=== PATIENT | female | born 2000 | race Caucasian/White ===

== ENCOUNTER 2020-03-21 21:20 | Emergency (ER) | payer OTHER ==
[~2020-03-21] VITALS: Ht 165.1 cm; Wt 89.1 kg
[2020-03-21] MEDS ORDERED: MIRA3350 PO (21:43)
[2020-03-21] MEDS ORDERED: DICYCLOMINE 10 MG CAP PO ONE (22:30)
[2020-03-21 22:54] LABS: BASO # 0.1 10^3/uL (0.0-0.2); BASO % 0.7 % (0.0-1.0); EOS # 0.2 10^3/uL (0.0-0.5); EOS % 1.4 % (0.0-3.0); HEMATOCRIT 44.6 % (36.0-47.0); HEMOGLOBIN 14.9 g/dl (12.0-15.5); LYMPH % 18.6 % (24.0-44.0); MEAN CORPUSCULAR HEMOGLOBIN 27.8 pg (27.0-33.0); MEAN CORPUSCULAR HGB CONC 33.4 g/dl (32.0-36.5); MEAN CORPUSCULAR VOLUME 83.2 fl (80.0-96.0); MONO # 0.9 10^3/uL (0.0-0.8); MONO % 8.2 % (0.0-5.0); NEUTROPHILS # 7.5 10^3/uL (1.5-8.5); NEUTROPHILS % 70.7 % (36.0-66.0); PLATELET COUNT, AUTOMATED 360 10^3/uL (150-450); RED BLOOD COUNT 5.36 10^6/uL (4.00-5.40); WHITE BLOOD COUNT 10.6 10^3/uL (4.0-10.0)
[2020-03-21 23:15] LABS: ALBUMIN 4.1 GM/DL (3.2-5.2); ALT/SGPT 26 U/L (12-78); BILIRUBIN,DIRECT 0.1 MG/DL (0.0-0.2); BILIRUBIN,TOTAL 0.3 MG/DL (0.2-1.0); BLOOD UREA NITROGEN 11 MG/DL (7-18); CALCIUM LEVEL 9.5 MG/DL (8.5-10.1); CARBON DIOXIDE LEVEL 23 MEQ/L (21-32); CHLORIDE LEVEL 111 MEQ/L (98-107); CREATININE FOR GFR 0.74 MG/DL (0.55-1.30); GLUCOSE, FASTING 105 MG/DL (70-100); LIPASE 82 U/L (73-393); POTASSIUM SERUM 3.9 MEQ/L (3.5-5.1); SODIUM LEVEL 140 MEQ/L (136-145); TOTAL PROTEIN 8.2 GM/DL (6.4-8.2)
[2020-03-21 23:34] VITALS: BP 129/67
--- NOTE | 2020-03-21 23:47 | REPVR ---
PROCEDURE INFORMATION: Exam: CT Abdomen And Pelvis Without Contrast Exam date and time: 03/21/2020 10:19 PM Age: 19 years old Clinical indication: Abdominal pain; Generalized; Additional info: Rectal bleeding with bm, diffuse abd and back pain TECHNIQUE: Imaging protocol: Computed tomography of the abdomen and pelvis without contrast. Radiation optimization: All CT scans at this facility use at least one of these dose optimization techniques: automated exposure control; mA and/or kV adjustment per patient size (includes targeted exams where dose is matched to clinical indication); or iterative reconstruction. COMPARISON: No relevant prior studies available. FINDINGS: Limitations: Evaluation is somewhat limited by lack of IV contrast. Lungs: There is a 3 mm pleural based nodule in the left lower lobe (image 201:[id number]). Liver: Grossly unremarkable. Gallbladder and bile ducts: No gallstones are evident, but ultrasound would be more sensitive. No gross biliary ductal dilatation. Pancreas: Grossly unremarkable. Spleen: Grossly unremarkable. Adrenals: Grossly unremarkable. Kidneys and ureters: Grossly unremarkable. No hydronephrosis or renal or ureteral calculus. Stomach and bowel: The unopacified small bowel is not significantly distended to suggest obstruction. Question mild wall thickening of the rectosigmoid. The large bowel is otherwise grossly unremarkable in appearance. Appendix: The appendix appears normal. Intraperitoneal space: No free air or significant free fluid. Vasculature: Unremarkable. No abdominal aortic aneurysm. Lymph nodes: No gross pathologic lymphadenopathy. Bladder: Grossly unremarkable. Reproductive: No gross adnexal abnormality is apparent, but ultrasound would be more appropriate in this regard. Bones/joints: Unremarkable. No acute fracture. Soft tissues: A small fat containing umbilical hernia is present. IMPRESSION: 1. Question mild wall thickening of the rectosigmoid. Correlate as to any possible nonspecific proctocolitis. 2. No hydronephrosis or renal or ureteral calculus. 3. Small fat containing umbilical hernia. 4. 3 mm left lower lobe nodule. If patient does not have known cancer, follow up should be based on clinical information because of the low risk of cancer in this age group. ([place] et al., Fleischner Society, 2017) COMMENTS: Depending on suspected etiology of symptoms, consider a targeted ultrasound or contrast enhanced exam. Electronically signed by: Bonilla Corea On 03/21/2020 23:47:17 PM
[2020-03-22] MEDS ORDERED: ANUSOL HC 25MG SUPP PR STA (01:24)
[2020-03-22] MEDS ORDERED: AUGMENTIN 875 MG TAB PO ONE (01:30)
[2020-03-22] MEDS ORDERED: AUGM875T28 PO ×2 (01:44→02:11)
[2020-03-22] MEDS ORDERED: ANUS2.5C2 TOP ×2 (01:44→02:11)
[2020-03-22] MEDS ORDERED: DICY10CA13 PO ×2 (01:44→02:11)
--- NOTE | 2020-03-24 08:57 | ED PDOC ---
Post-Departure Follow-Up radiology report faxed to Maria E Morales MD Mar 24, 2020 08:57
== END 2020-03-22 02:12 | disposition home or self-care (01) ==
LOC: M ED 21:20
DX: R91.1 Solitary pulmonary nodule (principal); K42.9 Umbilical hernia without obstruction or gangrene; F17.200 Nicotine dependence, unspecified, uncomplicated; Z79.899 Other long term (current) drug therapy

== ENCOUNTER 2020-04-26 20:55 | Emergency (ER) | payer OTHER ==
[~2020-04-26] VITALS: Ht 165.1 cm; Wt 93.9 kg
[~2020-04-26 20:55] MED LIST: ANUS2.5C2 TOP; AUGM875T28 PO; DICY10CA13 PO; MIRA3350 PO
[2020-04-26 20:56] VITALS: BP 141/82
[2020-04-26] MEDS ORDERED: PROC1AER16 PR (22:55)
== END 2020-04-26 23:06 | disposition home or self-care (01) ==
LOC: M ED 20:55
DX: K64.8 Other hemorrhoids (principal); F17.210 Nicotine dependence, cigarettes, uncomplicated

== ENCOUNTER → 2020-05-19 | Outpatient (REF) | payer OTHER ==
[~2020-05-19] MED LIST changes: +PROC1AER16 PR
[2020-05-19 16:32] LABS: BASO # 0.1 10^3/uL (0.0-0.2); BASO % 0.7 % (0.0-1.0); EOS # 0.2 10^3/uL (0.0-0.5); EOS % 1.7 % (0.0-3.0); HEMOGLOBIN 14.2 g/dl (12.0-15.5); LYMPH # 2.7 10^3/uL (1.5-5.0); LYMPH % 30.7 % (24.0-44.0); MEAN CORPUSCULAR HEMOGLOBIN 27.8 pg (27.0-33.0); MEAN CORPUSCULAR VOLUME 84.3 fl (80.0-96.0); MONO # 0.6 10^3/uL (0.0-0.8); MONO % 6.7 % (0.0-5.0); NEUTROPHILS # 5.2 10^3/uL (1.5-8.5); NEUTROPHILS % 59.7 % (36.0-66.0); PLATELET COUNT, AUTOMATED 342 10^3/uL (150-450); WHITE BLOOD COUNT 8.7 10^3/uL (4.0-10.0)
[2020-05-19 17:24] LABS: ALBUMIN 4.3 GM/DL (3.2-5.2); ALT/SGPT 24 U/L (12-78); BILIRUBIN,TOTAL 0.6 MG/DL (0.2-1.0); BLOOD UREA NITROGEN 8 MG/DL (7-18); CALCIUM LEVEL 9.9 MG/DL (8.5-10.1); CARBON DIOXIDE LEVEL 25 MEQ/L (21-32); CHLORIDE LEVEL 108 MEQ/L (98-107); CREATININE FOR GFR 0.67 MG/DL (0.55-1.30); GLUCOSE, FASTING 85 MG/DL (70-100); POTASSIUM SERUM 4.3 MEQ/L (3.5-5.1); SODIUM LEVEL 139 MEQ/L (136-145); THYROID STIMULATING HORMONE 0.931 uIU/ML (0.463-3.98); TOTAL 25(OH) VITAMIN D 16.6 NG/ML (30.0-100.0); TOTAL PROTEIN 7.9 GM/DL (6.4-8.2)
== END ==
LOC: M LAB REF 16:09
PROVIDERS: ATTEND Physician Assistant
DX: Z65.9 Problem related to unspecified psychosocial circumstances (principal)

== ENCOUNTER 2020-05-20 17:54 | Emergency (ER) | payer OTHER ==
[~2020-05-20] VITALS: Ht 165.1 cm; Wt 95.0 kg
[2020-05-20] MEDS ORDERED: ACETAMINOPHEN 500 MG TAB PO ONE (19:00)
--- NOTE | 2020-05-20 19:22 | REPVR ---
PROCEDURE INFORMATION: Exam: XR Right Knee Exam date and time: 05/20/2020 6:36 PM Age: 19 years old Clinical indication: Other: Fall; Additional info: Fall stairs TECHNIQUE: Imaging protocol: XR Right knee. Views: 4 or more views. COMPARISON: No relevant prior studies available. FINDINGS: Bones/joints: No radiographic evidence of acute fracture or dislocation. Alignment anatomic. Joint spaces preserved. No significant effusion. Soft tissues: Grossly unremarkable. IMPRESSION: No acute radiographic findings. Electronically signed by: Bonilla Lopez On 05/20/2020 19:21:37 PM
--- NOTE | 2020-05-20 19:27 | REPVR ---
PROCEDURE INFORMATION: Exam: XR Right Ankle Exam date and time: 05/20/2020 6:36 PM Age: 19 years old Clinical indication: Other: Fall; Additional info: Fall stairs TECHNIQUE: Imaging protocol: XR Right ankle. Views: 3 or more views. COMPARISON: No relevant prior studies available. FINDINGS: Bones/joints: No radiographic evidence of acute fracture or dislocation. Alignment anatomic. Joint spaces preserved. No definite effusion. Soft tissues: Grossly unremarkable. IMPRESSION: No acute radiographic findings. Electronically signed by: Bonilla Lopez On 05/20/2020 19:27:48 PM
[2020-05-20 19:59] VITALS: BP 125/64
== END 2020-05-20 20:02 | disposition home or self-care (01) ==
LOC: EDBD 17:54 → M ED 17:54
DX: M25.561 Pain in right knee (principal); W10.9XXA Fall (on) (from) unspecified stairs and steps, initial encounter; Y92.009 Unspecified place in unspecified non-institutional (private) residence as the place of occurrence of the external cause; Y99.9 Unspecified external cause status; K59.00 Constipation, unspecified; F17.200 Nicotine dependence, unspecified, uncomplicated

== ENCOUNTER 2020-07-23 22:54 | Emergency (ER) | payer OTHER ==
[~2020-07-23] VITALS: Ht 165.1 cm; Wt 95.0 kg
--- OUTSIDE RECORDS SUMMARY | 2020-07-23 22:59 | CCD ---
Author Organization Unknown Address [address] [place] [address] Phone [phone] Care Team Providers Care Security Alarm Technician Name Role Phone Ana Iqbal Unavailable Unavailable Allergies Code Code System Name Reaction Severity Status Onset NKDA Medications Name Status Start Date Stop Date lithium carbonate Active Not available Nexplanon 68 mg subdermal implant Inject by subcutaneous route. Active Not avail able Problems Name Status Onset Date Source Anxiety Active 05/01/2020 Depressive Disorder Active 05/01/2020 Seizure Active 05/01/2020 Posttraumatic Stress Disorder Active 05/02/2020 Attention Deficit Hyperactivity Disorder Active 020 Migraine Active 05/02/2020 Painless Rectal Bleeding Active 05/02/2020 History of Eating Disorder Active 05/02/2020 History of Traumatic Brain Injury Active 05/02/2020 Procedures None recorded. Results Lab Results None recorded. Past Encounters 05/01/2020 Migraine; Seizure; Posttraumatic Stress Disorder; Generalized Anxiety Disorder; History of Eating Disorder; Attention Deficit Hyperactivity Disorder; Depressive Disorder; Painless Rectal Bleeding; History of Traumatic Brain Injury; Atrial Septal Defect Lisbeth Rees PA-C: [address] [place] [address], Ph. Social History Tobacco Smoking Status Light Tobacco Smoker (1 PPW) Vaccine List None recorded. Plan of Care Reminders Provider Appointments None recorded. Lab None recorded. Referral None recorded. Procedures None recorded. Surgeries None recorded. Imaging None recorded. Vitals Height Weight BMI Blood Pressure 65 in 207 lbs 2 oz 34.5 kg/m2 124/81 mm[Hg]
--- OUTSIDE RECORDS SUMMARY | 2020-07-23 22:59 | CCD | Continuity of Care Document ---
Author Author Sofi MUNSON PA Organization Unknown Address [address] [place] [address], [facility] [address] [place] [address] Phone [phone] Care Team Providers Care Technical Service Representative Name Role Phone Maria E Carvalho MD AUTM [phone] Problems Description No Information Available Social History Type Date Description Comments Sex Unknown Allergies, Adverse Reactions, Alerts Description No Information Available Medications Active Medications SIG Qnty Indications Ordering Provide r Date Tramadol HCL 50mg Tablets 1 every 4-6 hours as needed pain 15tabs S80.01xA David Billy MD 05/24/20 20 Immunizations Description No Information Available Vital Signs Date Vital Result Comment 05/24/2020 1:32pm Body Temperature 97.8 F Height 65 inches 5'5" Weight 209.00 lb BMI (Body Mass Index) 34.8 kg/m2 Results Description No Information Available Procedures Description No Information Available Medical Devices Description No Information Available Encounters Type Date Location Provider Dx Diagnosis Office Visit 05/24/2020 1:30p [place] [facility] Morales S80.01xA Contusion of right knee, initial encounter Assessments Date Code Description Provider 05/24/2020 S80.01xA Contusion of right knee, initial encounter [facility] Morales Plan of Treatment 05/24/2020 - [facility] Morales* S80.01xA Contusion of right knee, initial encounter* New Medication:* Tramadol HCL 50 mg - 1 every 4-6 hours as needed pain * Follow up:* 7-10 days rt knee sy with IID Functional Status Description No Information Available Mental Status Description No Information Available Referrals Description No Information Available
--- OUTSIDE RECORDS SUMMARY | 2020-07-23 22:59 | CCD ---
Author Author [facility] Organization [facility] Address Unknown Phone Unavailable Care Team Providers Care Content Manager Name Role Phone Rasheed, A Ana MANAGER MEMBERSHIP Unavailable Unavailable Rasheed, A Ana MANAGER MEMBERSHIP Unavailable Unavailable Rasheed, A Ana MANAGER MEMBERSHIP Unavailable Unavailable Rasheed, A Ana MANAGER MEMBERSHIP Unavailable Unavailable Rasheed, A Ana MANAGER MEMBERSHIP Unavailable Unavailable Rasheed, A Ana MANAGER MEMBERSHIP Unavailable Unavailable Rasheed, A Ana MANAGER MEMBERSHIP Unavailable Unavailable Rasheed, A Ana MANAGER MEMBERSHIP Unavailable Unavailable Rasheed, A Ana MANAGER MEMBERSHIP Unavailable Unavailable Wayne, A Ana MANAGER MEMBERSHIP Unavailable Unavailable Wayne, A Ana MANAGER MEMBERSHIP Unavailable Unavailable Wayne, A Ana MANAGER MEMBERSHIP Unavailable Unavailable Wayne, A Ana MANAGER MEMBERSHIP Unavailable Unavailable Rasheed, A Ana MANAGER MEMBERSHIP Unavailable Unavailable Rasheed, A Ana MANAGER MEMBERSHIP Unavailable Unavailable Rasheed, A Ana MANAGER MEMBERSHIP Unavailable Unavailable Rasheed, A Ana MANAGER MEMBERSHIP Unavailable Unavailable Rasheed, A Ana MANAGER MEMBERSHIP Unavailable Unavailable Rasheed, A Ana MANAGER MEMBERSHIP Unavailable Unavailable Wayne, A Ana MANAGER MEMBERSHIP Unavailable Unavailable Wayne, A Ana MANAGER MEMBERSHIP Unavailable Unavailable Rasheed, A Ana MANAGER MEMBERSHIP Unavailable Unavailable Rasheed, A Ana MANAGER MEMBERSHIP Unavailable Unavailable Rasheed, A Ana MANAGER MEMBERSHIP Unavailable Unavailable Rasheed, A Ana MANAGER MEMBERSHIP Unavailable Unavailable Rasheed, A Ana MANAGER MEMBERSHIP Unavailable Unavailable Rasheed, A Ana MANAGER MEMBERSHIP Unavailable Unavailable Chidi Montaño MD Unavailable Unavailable Chidi Montaño MD Unavailable Unavailable Chidi Montaño MD Unavailable Unavailable Chidi Montaño MD Unavailable Unavailable Chidi Montaño MD Unavailable Unavailable Chidi Montaño MD Unavailable Unavailable Chidi Montaño MD Unavailable Unavailable Chidi Montaño MD Unavailable Unavailable Chidi Montaño MD Unavailable Unavailable Chidi Montaño MD Unavailable Unavailable Chidi Montaño MD Unavailable Unavailable Chidi Montaño MD Unavailable Unavailable Chidi Montaño MD Unavailable Unavailable Chidi Montaño MD Unavailable Unavailable Chidi Montaño MD Unavailable Unavailable Chidi Montaño MD Unavailable Unavailable Chidi Montñao MD Unavailable Unavailable Chidi Montaño MD Unavailable Unavailable Chidi oMntaño MD Unavailable Unavailable Chidi Montaño MD Unavailable Unavailable Chidi Montaño MD Unavailable Unavailable Chidi Montaño MD Unavailable Unavailable Chidi Montaño MD Unavailable Unavailable Chidi Montaño MD Unavailable Unavailable Chidi Montaño MD Unavailable Unavailable Chidi Montaño MD Unavailable Unavailable Chidi Montaño MD Unavailable Unavailable Chidi Montaño MD Unavailable Unavailable Chidi Montaño MD Unavailable Unavailable Chidi Montaño MD Unavailable Unavailable Chidi Montaño MD Unavailable Unavailable Chidi Montaño MD Unavailable Unavailable Chidi Montaño MD Unavailable Unavailable Cihdi Montaño MD Unavailable Unavailable Chidi Montaño MD Unavailable Unavailable Chidi Montaño MD Unavailable Unavailable Chidi Montaño MD Unavailable Unavailable Chidi Montaño MD Unavailable Unavailable Chidi Montaño MD Unavailable Unavailable Chidi Montaño MD Unavailable Unavailable Chidi Montaño MD Unavailable Unavailable Chidi Montaño MD Unavailable Unavailable Chidi Montaño MD Unavailable Unavailable Chidi Montaño MD Unavailable Unavailable Chidi Montaño MD Unavailable Unavailable Chidi Montaño MD Unavailable Unavailable Chidi Montaño MD Unavailable Unavailable Chidi Montaño MD Unavailable Unavailable Chidi Montaño MD Unavailable Unavailable Chidi Montaño MD Unavailable Unavailable Chidi Montaño MD Unavailable Unavailable Chidi Montaño MD Unavailable Unavailable Chidi Montaño MD Unavailable Unavailable Chidi Montaño MD Unavailable Unavailable Chidi Montaño MD Unavailable Unavailable Chidi Montaño MD Unavailable Unavailable Chidi Montaño MD Unavailable Unavailable Chidi Montaño MD Unavailable Unavailable Chidi Montaño MD Unavailable Unavailable Chidi Montaño MD Unavailable Unavailable Chidi Montaño MD Unavailable Unavailable Chidi Montaño MD Unavailable Unavailable Chidi Montaño MD Unavailable Unavailable Chidi Montaño MD Unavailable Unavailable Chidi Montaño MD Unavailable Unavailable Chidi Montaño MD Unavailable Unavailable Chidi Montaño MD Unavailable Unavailable Chidi Montaño MD Unavailable Unavailable Chidi Montaño MD Unavailable Unavailable Chidi Montaño MD Unavailable Unavailable Chidi Montaño MD Unavailable Unavailable Chidi Montaño MD Unavailable Unavailable Chidi Montaño MD Unavailable Unavailable Chidi Montaño MD Unavailable Unavailable Chidi Montaño MD Unavailable Unavailable Chidi Montaño MD Unavailable Unavailable Chidi Montaño MD Unavailable Unavailable Chidi Montaño MD Unavailable Unavailable Chidi Montaño MD Unavailable Unavailable Chidi Montaño MD Unavailable Unavailable Chidi Montaño MD Unavailable Unavailable Chidi Montaño MD Unavailable Unavailable Chidi Montaño MD Unavailable Unavailable Chidi Montaño MD Unavailable Unavailable Chidi Montaño MD Unavailable Unavailable Chidi Montaño MD Unavailable Unavailable Chidi Montaño MD Unavailable Unavailable Chidi Montaño MD Unavailable Unavailable Chidi Montaño MD Unavailable Unavailable Scordo, M Lisbeth PA Unavailable Unavailable Scordo, M Lisbeth PA Unavailable Unavailable Scordo, M Lisbeth PA Unavailable Unavailable Scordo, M Lisbeth PA Unavailable Unavailable Scordo, M Lisbeth PA Unavailable Unavailable Scordo, M Lisbeth PA Unavailable Unavailable Scordo, M Lisbeth PA Unavailable Unavailable Scordo, M Lisbeth PA Unavailable Unavailable Scordo, M Lisbeth PA Unavailable Unavailable Scordo, M Lisbeth PA Unavailable Unavailable Scordo, M Lisbeth PA Unavailable Unavailable Scordo, M Lisbeth PA Unavailable Unavailable Scordo, M Lisbeth PA Unavailable Unavailable Scordo, M Lisbeth PA Unavailable Unavailable Scordo, M Lisbeth PA Unavailable Unavailable Scordo, M Lisbeth PA Unavailable Unavailable Scordo, M Lisbeth PA Unavailable Unavailable Scordo, M Lisbeth PA Unavailable Unavailable Scordo, M Lisbeth PA Unavailable Unavailable Scordo, M Lisbeth PA Unavailable Unavailable Scordo, M Lisbeth PA Unavailable Unavailable Scordo, M Lisbeth PA Unavailable Unavailable Scordo, M Lisbeth PA Unavailable Unavailable Scordo, M Lisbeth PA Unavailable Unavailable Scordo, M Lisbeth PA Unavailable Unavailable Scordo, M Lisbeth PA Unavailable Unavailable Scordo, M Lisbeth PA Unavailable Unavailable Scordo, M Lisbeth PA Unavailable Unavailable Scordo, M Lisbeth PA Unavailable Unavailable Scordo, M Lisbeth PA Unavailable Unavailable Scordo, M Lisbeth PA Unavailable Unavailable Scordo, M Lisbeth PA Unavailable Unavailable Scordo, M Lisbeth PA Unavailable Unavailable Scordo, M Lisbeth PA Unavailable Unavailable Scordo, M Lisbeth PA Unavailable Unavailable Scordo, M Lisbeth PA Unavailable Unavailable Scordo, M Lisbeth PA Unavailable Unavailable Scordo, M Lisbeth PA Unavailable Unavailable Scordo, M Lisbeth PA Unavailable Unavailable Scordo, M Lisbeth PA Unavailable Unavailable DRAZEK, I CARYN PA Unavailable Unavailable DRAZEK, I CARYN PA Unavailable Unavailable DRAZEK, I CARYN PA Unavailable Unavailable DRAZEK, I CARYN PA Unavailable Unavailable DRAZEK, I CARYN PA Unavailable Unavailable DRAZEK, I CARYN PA Unavailable Unavailable DRAZEK, I CARYN PA Unavailable Unavailable DRAZEK, I CARYN PA Unavailable Unavailable DRAZEK, I CARYN PA Unavailable Unavailable DRAZEK, I CARYN PA Unavailable Unavailable DRAZEK, I CARYN PA Unavailable Unavailable DRAZEK, I CARYN PA Unavailable Unavailable DRAZEK, I CARYN PA Unavailable Unavailable DRAZEK, I CARYN PA Unavailable Unavailable DRAZEK, I CARYN PA Unavailable Unavailable DRAZEK, I CARYN PA Unavailable Unavailable DRAZEK, I CARYN PA Unavailable Unavailable DRAZEK, I CARYN PA Unavailable Unavailable DRAZEK, I CARYN PA Unavailable Unavailable DRAZEK, I CARYN PA Unavailable Unavailable DRAZEK, I CARYN PA Unavailable Unavailable DRAZEK, I CARYN PA Unavailable Unavailable DRAZEK, I CARYN PA Unavailable Unavailable DRAZEK, I CARYN PA Unavailable Unavailable DRAZEK, I CARYN PA Unavailable Unavailable DRAZEK, I CARYN PA Unavailable Unavailable DRAZEK, I CARYN PA Unavailable Unavailable DRAZEK, I CARYN PA Unavailable Unavailable DRAZEK, I CARYN PA Unavailable Unavailable DRAZEK, I CARYN PA Unavailable Unavailable Ana Iqbal MANAGER MEMBERSHIP MANAGER MEMBERSHIP Unavailable Unavailable Re-disclosure Warning The records that you are about to access may contain information from federally-assisted alcohol or drug abuse programs. If such information is present, then the following federally mandated warning applies: This information has been disclosed to you from records protected by federal confidentiality rules (42 CFR part 2). The federal rules prohibit you from making any further disclosure of this information unless further disclosure is expressly permitted by the written consent of the person to whom it pertains or as otherwise permitted by 42 CFR part 2. A general authorization for the release of medical or other information is NOT sufficient for this purpose. The Federal rules restrict any use of the information to criminally investigate or prosecute any alcohol or drug abuse patient.The records that you are about to access may contain highly sensitive health information, the redisclosure of which is protected by Article 27-F of the [facility] Public Health law. If you continue you may have access to information: Regarding HIV / AIDS; Provided by facilities licensed or operated by the [facility] Office of Mental Health; or Provided by the [facility] Office for People With Developmental Disabilities. If such information is present, then the following [facility] mandated warning applies: This information has been disclosed to you from confidential records which are protected by state law. State law prohibits you from making any further disclosure of this information without the specific written consent of the person to whom it pertains, or as otherwise permitted by law. Any unauthorized further disclosure in violation of state law may result in a fine or intermediate sentence or both. A general authorization for the release of medical or other information is NOT sufficient authorization for further disc losure. Encounters Encounter Providers Location Date Indications Data Source(s ) OFFICE OUTPATIENT NEW 30 MINUTES Attender: CARYN VALENTINE [facility] 05/24/2020 12:30:00 PM EST [facility] ([facility]) Ramy Montaño MD: [address] [place] [address], Ph. Attender: Ramy Montaño MD [facility] 05/19/2020 12:00:00 AM EST [facility] ([facility]) Lisbeth Rees PA-C: [address] [place] [address], Ph. Attender: Lisbeth VALENTINE [facility] 05/01/2020 12:00:00 AM EDT [facility] ([facility]) Lisbeth Rees PA-C: [address] [place] [address], Ph. Attender: Lisbeth VALENTINE [facility] 05/01/2020 12:00:00 AM EDT [facility]) Outpatient Attender: MARILEE HUNT ALL 04/08/2020 07:07:04 P M EDT [facility] Outpatient Attender: Ana HUNT ALL 04/08/2020 07:0 7:03 PM EDT [facility] Medications Medication Brand Name Start Date Product Form Dose Route Admi nistrative Instructions Pharmacy Instructions Status Indications Reaction Description Data Source(s) 28 mg iron- 800 mcg 06/15/2020 12:00:00 AM EST tablet 30 TAKE ONE TABLET BY MOUTH ONCE DAILY TAKE ONE TABLET BY MOUTH ONCE DAILY SOLD: 07/13/2020 [facility] 28 mg iron- 800 mcg 06/15/2020 12:00:00 AM EST tablet 30 TAKE ONE TABLET BY MOUTH ONCE DAILY TAKE ONE TABLET BY MOUTH ONCE DAILY SOLD: 06/15/2020 [facility] 50 mg 06/15/2020 12:00:00 AM EST tablet 15 TAKE ONE TABLET BY MOUTH EVERY 4- 6 HOURS NEEDED FOR PAIN MAXIMUM DAILY DOSE = 4 TABLETS TAKE ONE TABLET BY MOUTH EVERY 4-6 HOURS NEEDED FOR PAIN MAXIMUM DAILY DOSE = 4 TABLETS SOLD: 06/21/2020 [facility] tramadol hydrochloride 50 MG Oral Tablet Tramadol HCL 05/24/2020 12:00:00 AM EST active [facility]) 2.5 % 03/22/2020 12:00:00 AM EDT cream with perineal janet licator 30 APPLY 1 APPLICATION THREE TIMES A DAY APPLY 1 APPLICATION THREE TIMES A DAY SOLD: 03/22/2020 [facility] 10 mg 03/22/2020 12:00:00 AM EDT capsule 28 TAKE ONE CAPSULE BY MOUTH EVERY 6 HOURS NEEDED FOR IRRITABLE BOWEL SYMPTOMS TAKE ONE CAPSULE BY MOUTH EVERY 6 HOURS NEEDED FOR IRRITABLE BOWEL SYMPTOMS SOLD: 03/22/2020 [facility] 875-125 mg 03/22/2020 12:00:00 AM EDT tablet 14 TAKE ONE TABLET BY MOUTH TWICE A DAY FOR 7 DAYS TAKE ONE TABLET BY MOUTH TWICE A DAY FOR 7 DAYS SOLD: 03/22/2020 [facility] 17 gram/dose 10/26/2019 12:00:00 AM EDT powder 510 TAKE 1 TO 2 CAPS BY MOUTH DAILY WITH LIQUID NEEDED TAKE 1 TO 2 CAPS BY MOUTH DAILY WITH LIQ UID NEEDED SOLD: 10/31/2019 [facility] Insurance Providers Payer name Policy type / Coverage type Policy ID Covered constitution party ID Covered constitution party's relationship to ramires Policy Ramires Plan Information [facility] [id number] SP [id number] [facility] [id number] Problems, Conditions, and Diagnoses Code Display Name Description Problem Type Effective Dates Data Source(s) [id number] History of traumatic brain injury Histor y of Traumatic Brain Injury Problem 05/02/2020 12:00:00 AM EDT [facility] ([facility]) [id number] History of eating disorder History of Eating Disord er Problem 05/02/2020 12:00:00 AM EDT [facility] ([facility]) [id number] Painless rectal bleeding Painless Rectal Bleeding Prob gaby 05/02/2020 12:00:00 AM EDT [facility] ([facility]) [id number] Migraine Migraine Problem 05/02/2020 12:00:00 AM ED T [facility] ([facility]) [id number] Attention deficit hyperactivity disorder Attention Deficit Hyperactivity Disorder Problem 05/02/2020 12:00:00 AM EDT [facility] [id number] Posttraumatic stress disorder Posttraumatic Stress Dis order Problem 05/02/2020 12:00:00 AM EDT [facility] ([facility]) [id number] History of traumatic brain injury Histor y of Traumatic Brain Injury Problem 05/02/2020 12:00:00 AM EDT [facility] ([facility]) [id number] History of eating disorder History of Eating Disord er Problem 05/02/2020 12:00:00 AM EDT [facility] ([facility]) [id number] Painless rectal bleeding Painless Rectal Bleeding Prob gaby 05/02/2020 12:00:00 AM EDT [facility] ([facility]) 11428207 Migraine Migraine Problem 05/02/2020 12:00:00 AM ED T [facility] ([facility]) [id number] Attention deficit hyperactivity disorder Attention Deficit Hyperactivity Disorder Problem 05/02/2020 12:00:00 AM EDT [facility] 65532744 Posttraumatic stress disorder Posttraumatic Stress Dis order Problem 05/02/2020 12:00:00 AM EDT [facility] ([facility]) 56292191 Seizure Seizure Problem 05/01/2020 12:00:00 AM ED T [facility] ([facility]) 17056849 Depressive disorder Depressive Disorder Problem 1 12:00:00 AM EDT [facility] ([facility]) 65277046 Anxiety Anxiety Problem 05/01/2020 12:00:00 AM ED T [facility] ([facility]) 71695162 Seizure Seizure Problem 05/01/2020 12:00:00 AM ED T [facility] ([facility]) 08949325 Depressive disorder Depressive Disorder Problem 1 12:00:00 AM EDT [facility] ([facility]) 67482268 Anxiety Anxiety Problem 05/01/2020 12:00:00 AM ED T [facility] ([facility]) Results ID Date Data Source [id number] 03/21/2020 10:40:00 PM EDT [facility] Name Value Range Interpretation Code Description Data Noemi rce(s) Supporting Document(s) HCT 44.6 % 36.0-47.0 N [facility] HGB 14.9 g/dL 12.0-15.5 N [facility] MCH 33.4 G/DL pg 32.0-36.5 N [facility] MCHC 27.8 PG % 27.0-33.0 N [facility] PLATELETS 360 10 10*3/mm3 150-450 N [facility] RBC 5.36 10 10*6/mm3 4.00-5.40 N [facility] RDW 12.5 % 11.5-14.5 N [facility] WBC TOTAL 10.6 4.0-10.0 H [facility] ID Date Data Source [id number] 03/21/2020 10:40:00 PM EDT [facility] Name Value Range Interpretation Code Description Data Noemi rce(s) Supporting Document(s) BG FASTING 105 mg/dL 70-100 H [facility] Procedure Vital Signs ID Date Data Source UNK Name Value Range Interpretation Code Description Data Source(s) Body mass index (BMI) [Ratio] 34.8 kg/m2 34.8 k g/m2 [facility] ([facility]) Body weight 209.00 [lb_av] 209.00 [lb_av] MED[facility] T ([facility]) Body height 65 [in_i] 65 [in_i] [facility] ([facility]) 5'5" Body temperature 97.8 [degF] 97.8 [degF] [facility] ([facility]) Body weight 3314 [oz_av] 3314 [oz_av] [facility] ([facility]) Systolic blood pressure 124 mm[Hg] 124 mm[Hg] A LEONIDA ([facility]) Body mass index (BMI) [Ratio] 34.5 kg/m2 34.5 k g/m2 [facility] ([facility]) Body height 65 [in_i] 65 [in_i] [facility] ([facility]) Diastolic blood pressure 81 mm[Hg] 81 mm[Hg] [facility] ([facility]) Body weight 3314 [oz_av] 3314 [oz_av] [facility] ([facility]) Systolic blood pressure 124 mm[Hg] 124 mm[Hg] A LEONIDA ([facility]) Body mass index (BMI) [Ratio] 34.5 kg/m2 34.5 k g/m2 [facility] ([facility]) Body height 65 [in_i] 65 [in_i] [facility] ([facility]) Diastolic blood pressure 81 mm[Hg] 81 mm[Hg] [facility] ([facility])
--- OUTSIDE RECORDS SUMMARY | 2020-07-23 22:59 | CCD ---
Author Organization Unknown Address [address] [place] [address] Phone [phone] Care Team Providers Care Compacting Machine Operator/Tender Name Role Phone Ana Iqbal Unavailable Unavailable [...] Results Lab Results None recorded. Past Encounters 05/19/2020 Ramy Montaño MD: [address] [place] [address], Ph. 05/01/2020 Migraine; Seizure; Posttraumatic Stress Disorder; Generalized Anxiety Disorder; History of Eating Disorder; Attention Deficit Hyperactivity Disorder; Depressive Disorder; Painless Rectal Bleeding; History of Traumatic Brain Injury; Atrial Septal Defect Lisbeth Rees PA-C: [address] [place] [address], Ph. Social History Tobacco Smoking Status Light Tobacco Smoker (1 PPW) Vaccine List None recorded. Plan of Care Reminders Provider Appointments None recorded. Lab None recorded. Referral None recorded. Procedures None recorded. Surgeries None recorded. Imaging None recorded. Vitals Height Weight BMI Blood Pressure 65 in 207 lbs 2 oz 34.5 kg/m2 124/81 mm[Hg]
[2020-07-23] MEDS ORDERED: NS 1,000 ML IV ONE (23:15)
[2020-07-23] MEDS ORDERED: ONDANSETRON 4MG/2ML VIAL IV ONE (23:15)
[2020-07-23] MEDS ORDERED: diphenhydrAMINE 50MG/ML VIAL (J1200) IV STA (23:16)
[2020-07-23] MEDS ORDERED: METOCLOPRAMIDE INJ 10MG/2ML VIAL (J2765 PER 1) IV ONE (23:30)
[2020-07-24 00:20] LABS: BASO # 0.1 10^3/uL (0.0-0.2); BASO % 0.4 % (0.0-1.0); EOS # 0.1 10^3/uL (0.0-0.5); EOS % 0.7 % (0.0-3.0); HEMATOCRIT 41.4 % (36.0-47.0); HEMOGLOBIN 13.8 g/dl (12.0-15.5); LYMPH # 2.6 10^3/uL (1.5-5.0); LYMPH % 18.2 % (24.0-44.0); MEAN CORPUSCULAR HEMOGLOBIN 27.7 pg (27.0-33.0); MEAN CORPUSCULAR HGB CONC 33.3 g/dl (32.0-36.5); MEAN CORPUSCULAR VOLUME 83.1 fl (80.0-96.0); MONO # 0.8 10^3/uL (0.0-0.8); MONO % 5.6 % (0.0-5.0); NEUTROPHILS # 10.4 10^3/uL (1.5-8.5); NEUTROPHILS % 74.3 % (36.0-66.0); PLATELET COUNT, AUTOMATED 351 10^3/uL (150-450); RED BLOOD COUNT 4.98 10^6/uL (4.00-5.40)
[2020-07-24 00:35] LABS: ALBUMIN 4.3 GM/DL (3.2-5.2); ALT/SGPT 42 U/L (12-78); BILIRUBIN,DIRECT 0.1 MG/DL (0.0-0.2); BILIRUBIN,TOTAL 0.8 MG/DL (0.2-1.0); BLOOD UREA NITROGEN 12 MG/DL (7-18); CARBON DIOXIDE LEVEL 24 MEQ/L (21-32); CHLORIDE LEVEL 106 MEQ/L (98-107); GLUCOSE, FASTING 92 MG/DL (70-100); POTASSIUM SERUM 4.1 MEQ/L (3.5-5.1); SODIUM LEVEL 139 MEQ/L (136-145)
[2020-07-24 00:57] LABS: HCG, SERUM QUALITATIVE NEGATIVE (NEGATIVE)
--- OUTSIDE RECORDS SUMMARY | 2020-07-24 01:27 | CCD ---
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 Role Phone Rasheed, A Ana ENGLISH ADJUNCT FACULTY Unavailable Unavailable Rasheed, A Ana ENGLISH ADJUNCT FACULTY Unavailable Unavailable Rasheed, A Ana ENGLISH ADJUNCT FACULTY Unavailable Unavailable Rasheed, A Ana ENGLISH ADJUNCT FACULTY Unavailable Unavailable Rasheed, A Ana ENGLISH ADJUNCT FACULTY Unavailable Unavailable Rasheed, A Ana ENGLISH ADJUNCT FACULTY Unavailable Unavailable Rasheed, A Ana ENGLISH ADJUNCT FACULTY Unavailable Unavailable Rasheed, A Ana ENGLISH ADJUNCT FACULTY Unavailable Unavailable Rasheed, A Ana ENGLISH ADJUNCT FACULTY Unavailable Unavailable [place]st, A Ana ENGLISH ADJUNCT FACULTY Unavailable Unavailable [place], A Ana ENGLISH ADJUNCT FACULTY Unavailable Unavailable [place], A Ana ENGLISH ADJUNCT FACULTY Unavailable Unavailable [place], A Ana ENGLISH ADJUNCT FACULTY Unavailable Unavailable Rasheed, A Ana ENGLISH ADJUNCT FACULTY Unavailable Unavailable Rasheed, A Ana ENGLISH ADJUNCT FACULTY Unavailable Unavailable Rasheed, A Ana ENGLISH ADJUNCT FACULTY Unavailable Unavailable Rasheed, A Ana ENGLISH ADJUNCT FACULTY Unavailable Unavailable Rasheed, A Ana ENGLISH ADJUNCT FACULTY Unavailable Unavailable Rasheed, A Ana ENGLISH ADJUNCT FACULTY Unavailable Unavailable [place], A Ana ENGLISH ADJUNCT FACULTY Unavailable Unavailable [place], A Ana ENGLISH ADJUNCT FACULTY Unavailable Unavailable Rasheed, A Ana ENGLISH ADJUNCT FACULTY Unavailable Unavailable Rasheed, A Ana ENGLISH ADJUNCT FACULTY Unavailable Unavailable Rasheed, A Ana ENGLISH ADJUNCT FACULTY Unavailable Unavailable Rasheed, A Ana ENGLISH ADJUNCT FACULTY Unavailable Unavailable Rasheed, A Ana ENGLISH ADJUNCT FACULTY Unavailable Unavailable Rasheed, A Ana ENGLISH ADJUNCT FACULTY Unavailable Unavailable Chidi Montaño MD Unavailable Unavailable [...] Unavailable Unavailable Chidi Montaño MD Unavailable Unavailable Chiid Montaño MD Unavailable Unavailable Chidi Montaño MD [...] I CARYN PA Unavailable Unavailable Ana Iqbal ENGLISH ADJUNCT FACULTY ENGLISH ADJUNCT FACULTY Unavailable Unavailable Re-disclosure Warning The records that [...] is protected by Article 27-F of the [facility] Public Health law. If you continue you may have access to information: Regarding HIV / AIDS; Provided by facilities licensed or operated by the [facility] Office of Mental Health; or Provided by the [facility] Office for People With Developmental Disabilities. If such information is present, then the following [facility] mandated warning applies: This information has been [...] law may result in a fine or detention sentence or both. A general authorization for the release of medical or other information is NOT sufficient authorization for further disc losure. Encounters Encounter Providers Location Date Indications Data Source(s ) OFFICE OUTPATIENT NEW 30 MINUTES Attender: CARYN VALENTINE Physic al Therapy 05/24/2020 12:30:00 PM EST [facility] ([facility]) Ramy Montaño MD: [address] [place] [address], Ph. Attender: Ramy Montaño MD [facility] Medical 05/19/2020 12:00:00 AM EST CECILIA ([facility]) Lisbeth Rees PA-C: [address] [place] [address], Ph. Attender: Lisbeth VALENTINE [facility] Medical 05/01/2020 12:00:00 AM EDT CECILIA ([facility]) Lisbeth Rees PA-C: [address] [place] [address], Ph. Attender: Lisbeth VALENTINE [facility] Medical 05/01/2020 12:00:00 AM EDT [facility]) Outpatient Attender: MARILEE HUNT ALL 04/08/2020 07:07:04 P M EDT [facility] Outpatient Attender: Ana HUNT ALL 04/08/2020 07:0 7:03 PM EDT [facility] Medications Medication Brand Name Start Date [...] relationship to ramires Policy Ramires Plan Information [facility] [id number] SP [id number] [address] [facility] [id number] S [id number] Problems, Conditions, and Diagnoses Code Display Name Description Problem Type Effective Dates Data Source(s) 44530600612508 History of traumatic brain injury Histor y of Traumatic Brain Injury Problem 05/02/2020 12:00:00 AM EDT CECILIA ([facility]) [id number] History of eating disorder History of Eating Disord er Problem 05/02/2020 12:00:00 AM EDT CECILIA ([facility]) 614356769 Painless rectal bleeding Painless Rectal Bleeding Prob gaby 05/02/2020 12:00:00 AM EDT CECILIA ([facility]) 69693758 Migraine Migraine Problem 05/02/2020 12:00:00 AM ED T CECILIA ([facility]) [id number] Attention deficit hyperactivity disorder Attention Deficit Hyperactivity Disorder Problem 05/02/2020 12:00:00 AM EDT [facility] 38064043 Posttraumatic stress disorder Posttraumatic Stress Dis order Problem 05/02/2020 12:00:00 AM EDT CECILIA ([facility]) [id number] History of traumatic brain injury Histor y of Traumatic Brain Injury Problem 05/02/2020 12:00:00 AM EDT CECILIA ([facility]) [id number] History of eating disorder History of Eating Disord er Problem 05/02/2020 12:00:00 AM EDT CECILIA ([facility]) 698389814 Painless rectal bleeding Painless Rectal Bleeding Prob agby 05/02/2020 12:00:00 AM EDT CECILIA ([facility]) 28950402 Migraine Migraine Problem 05/02/2020 12:00:00 AM ED T CECILIA ([facility]) 308946338 Attention deficit hyperactivity disorder Attention Deficit Hyperactivity Disorder Problem 05/02/2020 12:00:00 AM EDT [facility]) 96200901 Posttraumatic stress disorder Posttraumatic Stress Dis order Problem 05/02/2020 12:00:00 AM EDT CECILIA ([facility]) 14486756 Seizure Seizure Problem 05/01/2020 12:00:00 AM ED T CECILIA ([facility]) 63029508 Depressive disorder Depressive Disorder Problem 1 12:00:00 AM EDT CECILIA ([facility]) 58596280 Anxiety Anxiety Problem 05/01/2020 12:00:00 AM ED T CECILIA ([facility]) 50964496 Seizure Seizure Problem 05/01/2020 12:00:00 AM ED T CECILIA ([facility]) 25123249 Depressive disorder Depressive Disorder Problem 1 12:00:00 AM EDT CECILIA ([facility]) 73676620 Anxiety Anxiety Problem 05/01/2020 12:00:00 AM ED T CECILIA ([facility]) Results ID Date Data Source [id number] 03/21/2020 10:40:00 PM EDT [facility] Name Value Range Interpretation Code Description Data Noemi rce(s) Supporting Document(s) HCT 44.6 % 36.0-47.0 N [facility] HGB 14.9 g/dL 12.0-15.5 N [facility] MCH 33.4 G/DL pg 32.0-36.5 N [facility] MCHC 27.8 PG % 27.0-33.0 N [facility] PLATELETS 360 10 10*3/mm3 150-450 N [facility] RBC 5.36 10 10*6/mm3 4.00-5.40 N [facility] RDW 12.5 % 11.5-14.5 N [facility] WBC TOTAL 10.6 4.0-10.0 H [facility] ID Date Data Source [id number] 03/21/2020 10:40:00 PM EDT [facility] Name Value Range Interpretation Code Description Data Noemi rce(s) Supporting Document(s) BG FASTING 105 mg/dL 70-100 H [facility] Procedure Vital Signs ID Date Data Source UNK Name Value Range Interpretation Code Description Data Source(s) Body mass index (BMI) [Ratio] 34.8 kg/m2 34.8 k g/m2 [facility] ([facility]) Body weight 209.00 [lb_av] 209.00 [lb_av] MEDEN T ([facility]) Body height 65 [in_i] 65 [in_i] [facility] ([facility]) 5'5" Body temperature 97.8 [degF] 97.8 [degF] MEDENT ([facility]) Body weight 3314 [oz_av] 3314 [oz_av] CECILIA ([facility]) Systolic blood pressure 124 mm[Hg] 124 mm[Hg] A LEONIDA ([facility]) Body mass index (BMI) [Ratio] 34.5 kg/m2 34.5 k g/m2 CECILIA ([facility]) Body height 65 [in_i] 65 [in_i] CECILIA ([facility]) Diastolic blood pressure 81 mm[Hg] 81 mm[Hg] CECILIA ([facility]) Body weight 3314 [oz_av] 3314 [oz_av] CECILIA ([facility]) Systolic blood pressure 124 mm[Hg] 124 mm[Hg] A LEONIDA ([facility]) Body mass index (BMI) [Ratio] 34.5 kg/m2 34.5 k g/m2 CECILIA ([facility]) Body height 65 [in_i] 65 [in_i] CECILIA ([facility]) Diastolic blood pressure 81 mm[Hg] 81 mm[Hg] CECILIA ([facility])
[2020-07-24] MEDS ORDERED: KETOROLAC 30 MG/ML 1ML VIAL IV ONE (01:45)
[2020-07-24 02:31] VITALS: BP 113/66
== END 2020-07-24 02:35 | disposition home or self-care (01) ==
LOC: M ED 22:54
DX: R51.9 Headache, unspecified (principal)
CPT/HCPCS: 36415; 80048; 80076; 81001; 84703; 85025; 86850; 86900; 86901; 87086; 96374; 96375; 99284; J1200; J1885; J2405; J2765

== ENCOUNTER 2020-08-05 16:46 | Inpatient (IN) | payer OTHER ==
[~2020-08-05] VITALS: Ht 165.1 cm; Wt 95.0 kg
--- OUTSIDE RECORDS SUMMARY | 2020-08-05 16:50 | CCD ---
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 Name Role Phone Chidi Montaño MD Unavailable Unavailable Chidi Montaño [...] Unavailable DRAZEK, I CARYN PA Unavailable Unavailable Rasheed, Ana CHIEF OF INTERNAL MEDICINE CHIEF OF INTERNAL MEDICINE Unavailable Unavailable Rasheed, A Ana CHIEF OF INTERNAL MEDICINE Unavailable Unavailable Rasheed, A Ana CHIEF OF INTERNAL MEDICINE Unavailable Unavailable Rasheed, A Ana CHIEF OF INTERNAL MEDICINE Unavailable Unavailable Rasheed, A Ana CHIEF OF INTERNAL MEDICINE Unavailable Unavailable Rasheed, A Ana CHIEF OF INTERNAL MEDICINE Unavailable Unavailable Rasheed, A Ana CHIEF OF INTERNAL MEDICINE Unavailable Unavailable Rasheed, A Ana CHIEF OF INTERNAL MEDICINE Unavailable Unavailable Rasheed, A Ana CHIEF OF INTERNAL MEDICINE Unavailable Unavailable Rasheed, A Ana CHIEF OF INTERNAL MEDICINE Unavailable Unavailable Rasheed, A Ana CHIEF OF INTERNAL MEDICINE Unavailable Unavailable Rasheed, A Ana CHIEF OF INTERNAL MEDICINE Unavailable Unavailable Rasheed, A Ana CHIEF OF INTERNAL MEDICINE Unavailable Unavailable Rasheed, A Ana CHIEF OF INTERNAL MEDICINE Unavailable Unavailable Rasheed, A Ana CHIEF OF INTERNAL MEDICINE Unavailable Unavailable Rasheed, A Ana CHIEF OF INTERNAL MEDICINE Unavailable Unavailable Rasheed, A Ana CHIEF OF INTERNAL MEDICINE Unavailable Unavailable Rasheed, A Ana CHIEF OF INTERNAL MEDICINE Unavailable Unavailable Rasheed, A Ana CHIEF OF INTERNAL MEDICINE Unavailable Unavailable Rasheed, A Ana CHIEF OF INTERNAL MEDICINE Unavailable Unavailable Rasheed, A Ana CHIEF OF INTERNAL MEDICINE Unavailable Unavailable Rasheed, A Ana CHIEF OF INTERNAL MEDICINE Unavailable Unavailable Rasheed, A Ana CHIEF OF INTERNAL MEDICINE Unavailable Unavailable Rasheed, A Ana CHIEF OF INTERNAL MEDICINE Unavailable Unavailable Rasheed, A Ana CHIEF OF INTERNAL MEDICINE Unavailable Unavailable Rasheed, A Ana CHIEF OF INTERNAL MEDICINE Unavailable Unavailable Rasheed, A Ana CHIEF OF INTERNAL MEDICINE Unavailable Unavailable Rasheed, A Ana CHIEF OF INTERNAL MEDICINE Unavailable Unavailable Rasheed, A Ana CHIEF OF INTERNAL MEDICINE Unavailable Unavailable Re-disclosure Warning The records that [...] is protected by Article 27-F of the [facility] Public Health law. If you continue you may have access to information: Regarding HIV / AIDS; Provided by facilities licensed or operated by the [facility] Office of Mental Health; or Provided by the [facility] Office for People With Developmental Disabilities. If such information is present, then the following [facility] mandated warning applies: This information has been [...] law may result in a fine or usp sentence or both. A general authorization for the release of medical or other information is NOT sufficient authorization for further disc losure. Encounters Encounter Providers Location Date Indications Data Source(s ) OFFICE OUTPATIENT NEW 30 MINUTES Attender: CARYN VALENTINE Physic al Therapy 05/24/2020 12:30:00 PM EST [facility] ([facility]) Ramy Montaño MD: [address] [place] [address], Ph. Attender: Ramy Montaño MD [facility] Medical 05/19/2020 12:00:00 AM EST CECILIA ([facility]) Lisbeth Rees PA-C: [address] [place] [address], Ph. Attender: Lisbeth [facility]ENTINE [facility] Medical 05/01/2020 12:00:00 AM EDT [facility] Lisbeth Rees PA-C: [address] [place] [address], Ph. Attender: Lisbeth VALENTINE [facility] Medical 05/01/2020 12:00:00 AM EDT [facility]) Outpatient Attender: MARILEE HUNT ALL 04/08/2020 07:07:04 P M EDT [facility] Outpatient Attender: Ana HUNT ALL 04/08/2020 07:0 7:03 PM EDT [facility] Medications Medication Brand Name Start [...] 05/24/2020 12:00:00 AM EST active [facility] ([facility] ) 1-1 % 04/27/2020 12:00:00 AM EDT foam 10 APPLY RECTALLY TWO TIMES A DAY APPLY RECTALLY TWO TIMES A DAY SOLD: 04/27/2020 [facility] 2.5 % 03/22/2020 12:00:00 AM EDT cream [...] type / Coverage type Policy ID Covered democrat ID Covered democrat's relationship to ramires Policy Ramires Plan Information [facility] [id number] SP [id number] 200 [facility] [id number] S [id number] Problems, Conditions, and Diagnoses Code Display Name Description Problem Type Effective Dates Data Source(s) [id number] History of traumatic brain injury Histor y of Traumatic Brain Injury Problem 05/02/2020 12:00:00 AM EDT CECILIA ([facility]) [id number] History of eating disorder History of Eating Disord er Problem 05/02/2020 12:00:00 AM EDT CECILIA ([facility]) 041098006 Painless rectal bleeding Painless Rectal Bleeding Prob gaby 05/02/2020 12:00:00 AM EDT CECILIA ([facility]) 90997928 Migraine Migraine Problem 05/02/2020 12:00:00 AM ED T CECILIA ([facility]) 819888895 Attention deficit hyperactivity disorder Attention Deficit Hyperactivity Disorder Problem 05/02/2020 12:00:00 AM EDT [facility] 16978363 Posttraumatic stress disorder Posttraumatic Stress Dis order Problem 05/02/2020 12:00:00 AM EDT CECILIA ([facility]) [id number] History of traumatic brain injury Histor y of Traumatic Brain Injury Problem 05/02/2020 12:00:00 AM EDT CECILIA ([facility]) [id number] History of eating disorder History of Eating Disord er Problem 05/02/2020 12:00:00 AM EDT CECILIA ([facility]) 818976417 Painless rectal bleeding Painless Rectal Bleeding Prob gaby 05/02/2020 12:00:00 AM EDT CECILIA ([facility]) 93609245 Migraine Migraine Problem 05/02/2020 12:00:00 AM ED T CECILIA ([facility]) 568904980 Attention deficit hyperactivity disorder Attention Deficit Hyperactivity Disorder Problem 05/02/2020 12:00:00 AM EDT [facility] 93490345 Posttraumatic stress disorder Posttraumatic Stress Dis order Problem 05/02/2020 12:00:00 AM EDT CECILIA ([facility]) 57517631 Seizure Seizure Problem 05/01/2020 12:00:00 AM ED T CECILIA ([facility]) 46398789 Depressive disorder Depressive Disorder Problem 1 12:00:00 AM EDT CECILIA ([facility]) 40732670 Anxiety Anxiety Problem 05/01/2020 12:00:00 AM ED Kyle BROOKS ([facility]) 19189300 Seizure Seizure Problem 05/01/2020 12:00:00 AM ED T CECILIA ([facility]) 28681700 Depressive disorder Depressive Disorder Problem 1 12:00:00 AM EDT CECILIA ([facility]) 39878447 Anxiety Anxiety Problem 05/01/2020 12:00:00 AM ED T CECILIA ([facility]) Results ID Date Data Source [id number] 03/21/2020 10:40:00 PM EDT [facility] Name Value Range Interpretation Code Description Data Noemi rce(s) Supporting Document(s) HCT 44.6 % 36.0-47.0 N [facility] HGB 14.9 g/dL 12.0-15.5 N [facility] MCH 33.4 G/DL pg 32.0-36.5 N [facility] MCHC 27.8 PG % 27.0-33.0 N [facility] PLATELETS 360 10 10*3/mm3 150-450 N [facility] RBC 5.36 10 10*6/mm3 4.00-5.40 N [facility] RDW 12.5 % 11.5-14.5 N [facility] WBC TOTAL 10.6 4.0-10.0 H [facility] ID Date Data Source [id number] 03/21/2020 10:40:00 PM EDT [facility] Name Value Range Interpretation Code Description Data Noemi rce(s) Supporting Document(s) BG FASTING 105 mg/dL 70-100 H [facility] Procedure Vital Signs ID Date Data Source UNK Name Value Range Interpretation Code Description Data Source(s) Body mass index (BMI) [Ratio] 34.8 kg/m2 34.8 k g/m2 [facility] ([facility]) Body weight 209.00 [lb_av] 209.00 [lb_av] NIMO T ([facility] ) Body height 65 [in_i] 65 [in_i] MEDDORIE ([facility]) 5'5" Body temperature 97.8 [degF] 97.8 [degF] MED[facility] ([facility]) Body weight 3314 [oz_av] 3314 [oz_av] CECILIA ([facility]) Systolic blood pressure 124 mm[Hg] 124 mm[Hg] A ROSANNE ([facility]) Body mass index (BMI) [Ratio] 34.5 kg/m2 34.5 k g/m2 CECILIA ([facility]) Body height 65 [in_i] 65 [in_i] CECILIA ([facility]) Diastolic blood pressure 81 mm[Hg] 81 mm[Hg] CECILIA ([facility]) Body weight 3314 [oz_av] 3314 [oz_av] CECILIA ([facility]) Systolic blood pressure 124 mm[Hg] 124 mm[Hg] Gladys LAY ([facility]) Body mass index (BMI) [Ratio] 34.5 kg/m2 34.5 k g/m2 CECILIA ([facility]) Body height 65 [in_i] 65 [in_i] CECILIA ([facility]) Diastolic blood pressure 81 mm[Hg] 81 mm[Hg] CECILIA ([facility])
[2020-08-05 17:43] LABS: BASO # 0.1 10^3/uL (0.0-0.2); BASO % 0.8 % (0.0-1.0); EOS # 0.2 10^3/uL (0.0-0.5); EOS % 1.8 % (0.0-3.0); HEMATOCRIT 41.6 % (36.0-47.0); HEMOGLOBIN 13.8 g/dl (12.0-15.5); LYMPH # 2.9 10^3/uL (1.5-5.0); LYMPH % 31.2 % (24.0-44.0); MEAN CORPUSCULAR HGB CONC 33.2 g/dl (32.0-36.5); MEAN CORPUSCULAR VOLUME 84.6 fl (80.0-96.0); MONO # 0.7 10^3/uL (0.0-0.8); MONO % 7.6 % (0.0-5.0); NEUTROPHILS # 5.4 10^3/uL (1.5-8.5); NEUTROPHILS % 58.4 % (36.0-66.0); PLATELET COUNT, AUTOMATED 330 10^3/uL (150-450); RED BLOOD COUNT 4.92 10^6/uL (4.00-5.40); WHITE BLOOD COUNT 9.2 10^3/uL (4.0-10.0)
[2020-08-05 18:28] LABS: AMPHETAMINES LEVEL URINE NEGATIVE (NEGATIVE); BARBITURATES URINE NEGATIVE (NEGATIVE); BENZODIAZEPINES URINE NEGATIVE (NEGATIVE); CANNABINOIDS URINE NEGATIVE (NEGATIVE); COCAINE METABOLITE URINE NEGATIVE (NEGATIVE); METHADONE URINE NEGATIVE (NEGATIVE); OPIATES URINE NEGATIVE (NEGATIVE); PHENCYCLIDINE URINE NEGATIVE (NEGATIVE)
--- OUTSIDE RECORDS SUMMARY | 2020-08-05 18:38 | CCD ---
Author Author [facility] Organization [facility] Address Unknown Phone Unavailable Care Team Providers Care Ball Fringe Machine Operator Name Role Phone Chidi Montaño MD Unavailable Unavailable Chidi Montaño MD Unavailable Unavailable Chidi Montaño MD Unavailable Unavailable Chidi Montaño MD Unavailable Unavailable Chidi Montaño MD Unavailable Unavailable Chidi Montaño MD Unavailable Unavailable Chidi Montaño MD Unavailable Unavailable Chidi Montaño MD Unavailable Unavailable Chidi Montaño MD Unavailable Unavailable Chidi Montaño MD Unavailable Unavailable Chidi Montaoñ MD Unavailable Unavailable Chidi Montaño MD Unavailable [...] I CARYN PA Unavailable Unavailable Ana Iqbal CORPORATE VP ADVERTISING & ONLINE CORPORATE VP ADVERTISING & ONLINE Unavailable Unavailable Rasheed, A Ana CORPORATE VP ADVERTISING & ONLINE Unavailable Unavailable Rasheed, A Ana CORPORATE VP ADVERTISING & ONLINE Unavailable Unavailable Rasheed, A Ana CORPORATE VP ADVERTISING & ONLINE Unavailable Unavailable Rasheed, A Ana CORPORATE VP ADVERTISING & ONLINE Unavailable Unavailable Rasheed, A Ana CORPORATE VP ADVERTISING & ONLINE Unavailable Unavailable Rasheed, A Ana CORPORATE VP ADVERTISING & ONLINE Unavailable Unavailable Rasheed, A Ana CORPORATE VP ADVERTISING & ONLINE Unavailable Unavailable Rasheed, A Ana CORPORATE VP ADVERTISING & ONLINE Unavailable Unavailable Rasheed, A Ana CORPORATE VP ADVERTISING & ONLINE Unavailable Unavailable Rasheed, A Ana CORPORATE VP ADVERTISING & ONLINE Unavailable Unavailable Rasheed, A Ana CORPORATE VP ADVERTISING & ONLINE Unavailable Unavailable Rasheed, A Ana CORPORATE VP ADVERTISING & ONLINE Unavailable Unavailable Rasheed, A Ana CORPORATE VP ADVERTISING & ONLINE Unavailable Unavailable Rasheed, A Ana CORPORATE VP ADVERTISING & ONLINE Unavailable Unavailable Rasheed, A Ana CORPORATE VP ADVERTISING & ONLINE Unavailable Unavailable Rasheed, A Ana CORPORATE VP ADVERTISING & ONLINE Unavailable Unavailable Rasheed, A Ana CORPORATE VP ADVERTISING & ONLINE Unavailable Unavailable Rasheed, A Ana CORPORATE VP ADVERTISING & ONLINE Unavailable Unavailable Rasheed, A Ana CORPORATE VP ADVERTISING & ONLINE Unavailable Unavailable Rasheed, A Ana CORPORATE VP ADVERTISING & ONLINE Unavailable Unavailable Rasheed, A Ana CORPORATE VP ADVERTISING & ONLINE Unavailable Unavailable Rasheed, A Ana CORPORATE VP ADVERTISING & ONLINE Unavailable Unavailable Rasheed, A Ana CORPORATE VP ADVERTISING & ONLINE Unavailable Unavailable Rasheed, A Ana CORPORATE VP ADVERTISING & ONLINE Unavailable Unavailable Rasheed, A Ana CORPORATE VP ADVERTISING & ONLINE Unavailable Unavailable Rasheed, A Ana CORPORATE VP ADVERTISING & ONLINE Unavailable Unavailable Rasheed, A Ana CORPORATE VP ADVERTISING & ONLINE Unavailable Unavailable Rasheed, A Ana CORPORATE VP ADVERTISING & ONLINE Unavailable Unavailable Re-disclosure Warning The records that [...] is protected by Article 27-F of the [facility] Public Health law. If you continue you may have access to information: Regarding HIV / AIDS; Provided by facilities licensed or operated by the [facility] Office of Mental Health; or Provided by the [facility] Office for People With Developmental Disabilities. If such information is present, then the following [facility] mandated warning applies: This information has [...] law may result in a fine or longterm sentence or both. A general authorization for the release of medical or other information is NOT sufficient authorization for further disc losure. Encounters Encounter Providers Location Date Indications Data Source(s ) OFFICE OUTPATIENT NEW 30 MINUTES Attender: CARYN [facility] 05/24/2020 12:30:00 PM EST [facility] ([facility]) Ramy Montaño MD: [address] [place] [address], Ph. Attender: Ramy Montaño MD [facility] Medical 05/19/2020 12:00:00 AM EST C[facility] ([facility]) Lisbeth Rees PA-C: [address] [place] [address], Ph. Attender: Lisbeth [facility] Medical 05/01/2020 12:00:00 AM EDT [facility] Lisbeth Rees PA-C: [address] [place] [address], Ph. Attender: Lisbeth [facility] Medical 05/01/2020 12:00:00 AM EDT [facility]) Outpatient Attender: MARILEE HUNT ALL 04/08/2020 07:07:04 P M EDT [facility] Outpatient Attender: Ana HUNT ALL 04/08/2020 07:0 7:03 PM EDT [facility] Medications Medication Brand Name Start Date Product [...] 05/24/2020 12:00:00 AM EST active [facility] ([facility] ) 1-1 % 04/27/2020 12:00:00 [...] relationship to ramires Policy Ramires Plan Information [facility] [id number] SP [id number] [address] [facility] [id number] S [id number] Problems, Conditions, and Diagnoses Code Display Name Description Problem Type Effective Dates Data Source(s) 41915085771776 History of traumatic brain injury Histor y of Traumatic Brain Injury Problem 05/02/2020 12:00:00 AM EDT C[facility] ([facility]) [id number] History of eating disorder History of Eating Disord er Problem 05/02/2020 12:00:00 AM EDT [facility] ([facility]) [id number] Painless rectal bleeding Painless Rectal Bleeding Prob gaby 05/02/2020 12:00:00 AM EDT [facility]ILIA ([facility]) [id number] Migraine Migraine Problem 05/02/2020 12:00:00 AM ED T C[facility]ILIA ([facility]) [id number] Attention deficit hyperactivity disorder Attention Deficit Hyperactivity Disorder Problem 05/02/2020 12:00:00 AM EDT [facility] [id number] Posttraumatic stress disorder Posttraumatic Stress Dis order Problem 05/02/2020 12:00:00 AM EDT [facility] ([facility]) [id number] History of traumatic brain injury Histor y of Traumatic Brain Injury Problem 05/02/2020 12:00:00 AM EDT [facility] ([facility]) [id number] History of eating disorder History of Eating Disord er Problem 05/02/2020 12:00:00 AM EDT [facility]IA ([facility]) 910217903 Painless rectal bleeding Painless Rectal Bleeding Prob gaby 05/02/2020 12:00:00 AM EDT [facility]IA ([facility]) 04773628 Migraine Migraine Problem 05/02/2020 12:00:00 AM ED T [facility] ([facility]) [id number] Attention deficit hyperactivity disorder Attention Deficit Hyperactivity Disorder Problem 05/02/2020 12:00:00 AM EDT [facility] [id number] Posttraumatic stress disorder Posttraumatic Stress Dis order Problem 05/02/2020 12:00:00 AM EDT C[facility]IA ([facility]) [id number] Seizure Seizure Problem 05/01/2020 12:00:00 AM ED T C[facility]ILIA ([facility]) 05894094 Depressive disorder Depressive Disorder Problem 1 12:00:00 AM EDT [facility] ([facility]) 07600729 Anxiety Anxiety Problem 05/01/2020 12:00:00 AM ED Kyle BROOKS ([facility]) [id number] Seizure Seizure Problem 05/01/2020 12:00:00 AM ED T [facility] ([facility]) 61743063 Depressive disorder Depressive Disorder Problem 1 12:00:00 AM EDT [facility] ([facility]) 75269005 Anxiety Anxiety Problem 05/01/2020 12:00:00 AM ED T [facility] ([facility]) Results ID Date Data Source [id number] 03/21/2020 10:40:00 PM EDT [facility] Name Value Range Interpretation Code Description Data Noemi rce(s) Supporting Document(s) HCT 44.6 % 36.0-47.[address] [facility] HGB 14.9 g/dL 12.0-15.5 N [facility] MCH 33.4 G/DL pg 32.0-36.5 N [facility] MCHC 27.8 PG % 27.0-33.0 N [facility] PLATELETS 360 10 10*3/mm3 150-450 N [facility] RBC 5.36 10 10*6/mm3 4.00-5.40 N [facility] RDW 12.5 % 11.5-14.5 N [facility] WBC TOTAL 10.6 4.0-10.0 H [facility] ID Date Data Source [id number] 03/21/2020 10:40:00 PM EDT [facility] Name Value Range Interpretation Code Description Data Noemi rce(s) Supporting Document(s) BG FASTING 105 mg/dL 70-[address] [facility] Procedure Vital Signs ID Date Data Source UNK Name Value Range Interpretation Code Description Data Source(s) Body mass index (BMI) [Ratio] 34.8 kg/m2 34.8 k g/m2 [facility] ([facility]) Body weight 209.00 [lb_av] 209.00 [lb_av] NIMO T ([facility]) Body height 65 [in_i] 65 [in_i] MEDDORIE ([facility]) 5'5" Body temperature 97.8 [degF] 97.8 [degF] [facility] ([facility]) Body weight 3314 [oz_av] 3314 [oz_av] CECILIA ([facility]) Systolic blood pressure 124 mm[Hg] 124 mm[Hg] A ROSANNE ([facility]) Body mass index (BMI) [Ratio] 34.5 kg/m2 34.5 k g/m2 CECILIA ([facility]) Body height 65 [in_i] 65 [in_i] CECILIA ([facility]) Diastolic blood pressure 81 mm[Hg] 81 mm[Hg] CECILIA ([facility]) Body weight 3314 [oz_av] 3314 [oz_av] CECILIA ([facility]) Systolic blood pressure 124 mm[Hg] 124 mm[Hg] Gladys LAY ([facility]) Body mass index (BMI) [Ratio] 34.5 kg/m2 34.5 k g/m2 CECILIA ([facility]) Body height 65 [in_i] 65 [in_i] CECILIA ([facility]) Diastolic blood pressure 81 mm[Hg] 81 mm[Hg] CECILIA ([facility])
[2020-08-05] MEDS ORDERED: PRENTAB7 PO (18:44)
[2020-08-05] MEDS ORDERED: levETIRAcetam INJection 1,000 MG in D5W 100 ML IV ONE (18:45)
--- NOTE | 2020-08-05 18:58 | REPVR ---
PROCEDURE INFORMATION: Exam: CT Head Without Contrast Exam date and time: 08/05/2020 6:15 PM Age: 20 years old Clinical indication: Other: Multiple seizure episodes per patient. TECHNIQUE: Imaging protocol: Computed tomography of the head without contrast. Radiation optimization: All CT scans at this facility use at least one of these dose optimization techniques: automated exposure control; mA and/or kV adjustment per patient size (includes targeted exams where dose is matched to clinical indication); or iterative reconstruction. COMPARISON: No relevant prior studies available. FINDINGS: Brain: No mass, mass effect, parenchymal hemorrhage, or evidence of large acute infarct. No asymmetric sulcal effacement or loss of the serrano-white interface. No extra-axial hemorrhage. Tiny calcifications in the basal ganglia bilaterally. A few scattered tiny punctate foci of increased density either in the deep margin of a sulcus or at the serrano-white interface in the left frontal and right parietal regions on series 201, image 19 and left frontal region on series 201, image 20, of uncertain etiology. These are most likely artifact from vessels in the deep margin of sulci. No associated edema, mass effect, or sulcal effacement. Cerebral ventricles: There is no hydrocephalus. Basal cisterns are patent. No midline shift. Bones/joints: Unremarkable. No acute fracture. Paranasal sinuses: Visualized sinuses are unremarkable. No fluid levels. Mastoid air cells: Visualized mastoid air cells are well aerated. Soft tissues: Unremarkable. Line Additional findings: Coronal reformatted images are available for review. No sagittal reformatted images. IMPRESSION: 1. Tiny punctate foci of increased density in the left frontal and right parietal regions which are most likely artifact from vessels at the deep margin of sulci. However, MR brain could be considered for confirmation. 2. No intracranial hemorrhage or large acute infarct. Electronically signed by: Radha Byrne On 08/05/2020 18:58:09 PM
[2020-08-05] MEDS ORDERED: MOM 30ML SUSPENSION UDC PO PRN (19:45)
[2020-08-05] MEDS ORDERED: ACETAMINOPHEN TAB 650MG DOSE (2X325MG) PO PRN (19:45)
[2020-08-05] MEDS ORDERED: MAALOX 30 ML SUSP *UDC PO PRN (19:45)
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
[2020-08-05 19:55] LABS: RSV AMPLIFICATION NEGATIVE (NEGATIVE)
[2020-08-05 20:52] VITALS: BP 104/64
[2020-08-05] MEDS ORDERED: LORazepam 2 MG/ML VIAL IV PRN (23:45)
[2020-08-06 06:00] VITALS: BP 112/71
[2020-08-06 07:41] LABS: HEMOGLOBIN 13.2 g/dl (12.0-15.5); MEAN CORPUSCULAR VOLUME 84.7 fl (80.0-96.0); PLATELET COUNT, AUTOMATED 313 10^3/uL (150-450); RED BLOOD COUNT 4.72 10^6/uL (4.00-5.40); WHITE BLOOD COUNT 9.8 10^3/uL (4.0-10.0)
[2020-08-06 07:55] LABS: HEMOGLOBIN A1c 5.1 %
[2020-08-06 08:05] LABS: BLOOD UREA NITROGEN 8 MG/DL (7-18); CALCIUM LEVEL 9.7 MG/DL (8.5-10.1); CARBON DIOXIDE LEVEL 25 MEQ/L (21-32); CHLORIDE LEVEL 105 MEQ/L (98-107); CREATININE FOR GFR 0.71 MG/DL (0.55-1.30); GLUCOSE, FASTING 79 MG/DL (70-100); POTASSIUM SERUM 4.1 MEQ/L (3.5-5.1); SODIUM LEVEL 141 MEQ/L (136-145)
[2020-08-06] MEDS ORDERED: BACITRACIN OINTMENT 30GM TUBE TOP SCH (09:00)
[2020-08-06] MEDS: ENOXAPARIN 40MG/0.4ML SYRINGE (J1650 PER 10MG) SC SCH ×2 (09:00→09:44)
[2020-08-06] MEDS: levETIRAcetam 250MG TABLET (KEPPRA) PO SCH ×2 (09:44→18:06)
--- NOTE | 2020-08-06 12:22 | ECGEPIP ---
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 No prior ECG available for comparison at the time of interpretation. Electronically Signed on 08-06-2020 12:22:16 EST by Peter Mehta
[2020-08-06 13:42] VITALS: BP 114/70
--- NOTE | 2020-08-06 13:56 | REPVR ---
PROCEDURE INFORMATION: Exam: MR Head Without Contrast Exam date and time: 08/06/2020 1:34 PM Age: 20 years old Clinical indication: Abnormal findings; Abnormal radiologic findings of head/skull; Not specified; Additional info: New onset seizures with abnormal CT head TECHNIQUE: Imaging protocol: MR of the head without contrast. COMPARISON: CT Head without contrast 08/05/2020 6:14 PM FINDINGS: Brain: There are few foci of increased T2/FLAIR signal in the white matter of the supra tentorial brain. These involve the right subinsular cortex, anterior periventricular white matter, and in the subcortical white matter of the frontal lobes. These findings are nonspecific and may be secondary to prior inflammatory disease, a vasculitis, demyelination, or, less likely ischemic change. The diffusion sequence demonstrates no acute change. There is no acute or chronic parenchymal hemorrhage. Cerebral ventricles: Normal. No ventriculomegaly. Bones/joints: Unremarkable. Paranasal sinuses: Normal as visualized. No acute sinusitis. Mastoid air cells: Normal as visualized. No mastoid effusion. Orbital cavity: Unremarkable. Soft tissues: Unremarkable. IMPRESSION: There are few foci of abnormal increased T2/FLAIR signal in the white matter of the supratentorial brain. These findings are nonspecific and may be secondary to prior inflammatory disease, a vasculitis, demyelination, or, less likely ischemic change. The diffusion sequence demonstrates no acute change. Electronically signed by: Ramy Neal On 08/06/2020 13:56:32 PM
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
[2020-08-06] MEDS ORDERED: KEPP250T5 PO (16:29)
[2020-08-08 16:17] LABS: ANTINUCLEAR ANTIBODIES DIRECT Negative (Negative)
== END 2020-08-06 18:37 | disposition home or self-care (01) | DRG 53 ==
LOC: M ED 16:46 → M ED INP 19:41 → ENRESERV 20:34 → M MSPAV 20:53
PROVIDERS: ADMIT Internal Medicine; ATTEND Internal Medicine
DX: R56.9 Unspecified convulsions (principal); E66.9 Obesity, unspecified; F17.200 Nicotine dependence, unspecified, uncomplicated; Z68.34 Body mass index [BMI] 34.0-34.9, adult; Z91.010 Allergy to peanuts; Z91.018 Allergy to other foods; Z20.822 Contact with and (suspected) exposure to COVID-19

== ENCOUNTER 2020-08-07 18:31 | Emergency (ER) | payer OTHER ==
[~2020-08-07] VITALS: Ht 165.1 cm; Wt 95.0 kg
[~2020-08-07 18:31] MED LIST changes: +KEPP250T5 PO; +PRENTAB7 PO
--- OUTSIDE RECORDS SUMMARY | 2020-08-07 18:37 | CCD ---
Author Author [facility] Organization [facility] Address Unknown Phone Unavailable Care Team Providers Care Tax Director Name Role Phone Chidi Montaño MD Unavailable [...] Unavailable Chidi Montaño MD Unavailable Unavailable Chidi Mnotaño MD Unavailable Unavailable Chidi Montaño MD Unavailable Unavailable Chidi Montaño MD Unavailable Unavailable Chidi Montaño MD Unavailable Unavailable Chidi Montaño MD Unavailable Unavailable Chidi Montaño MD Unavailable Unavailable Chidi Montaño MD Unavailable Unavailable Chidi Montaño MD Unavailable Unavailable Chidi Montaño MD Unavailable Unavailable Chidi Montaño MD Unavailable Unavailable Chidi Mnotaño MD Unavailable Unavailable Chidi Montaño MD Unavailable [...] I CARYN PA Unavailable Unavailable Ana Iqbal TARGET WORKER TARGET WORKER Unavailable Unavailable Rasheed, A Ana TARGET WORKER Unavailable Unavailable Rasheed, A Ana TARGET WORKER Unavailable Unavailable Rasheed, A Ana TARGET WORKER Unavailable Unavailable Rasheed, A Ana TARGET WORKER Unavailable Unavailable Rasheed, A Ana TARGET WORKER Unavailable Unavailable Rasheed, A Ana TARGET WORKER Unavailable Unavailable Rasheed, A Ana TARGET WORKER Unavailable Unavailable Rasheed, A Ana TARGET WORKER Unavailable Unavailable Rasheed, A Ana TARGET WORKER Unavailable Unavailable Rasheed, A Ana TARGET WORKER Unavailable Unavailable Rasheed, A Ana TARGET WORKER Unavailable Unavailable Rasheed, A Ana TARGET WORKER Unavailable Unavailable Rasheed, A Ana TARGET WORKER Unavailable Unavailable Rasheed, A Ana TARGET WORKER Unavailable Unavailable Rasheed, A Ana TARGET WORKER Unavailable Unavailable Rasheed, A Ana TARGET WORKER Unavailable Unavailable Rasheed, A Ana TARGET WORKER Unavailable Unavailable Rasheed, A Ana TARGET WORKER Unavailable Unavailable Rasheed, A Ana TARGET WORKER Unavailable Unavailable Rasheed, A Ana TARGET WORKER Unavailable Unavailable Rasheed, A Ana TARGET WORKER Unavailable Unavailable Rasheed, A Ana TARGET WORKER Unavailable Unavailable Rasheed, A Ana TARGET WORKER Unavailable Unavailable Rasheed, A Ana TARGET WORKER Unavailable Unavailable Rasheed, A Ana TARGET WORKER Unavailable Unavailable Rasheed, A Ana TARGET WORKER Unavailable Unavailable Rasheed, A Ana TARGET WORKER Unavailable Unavailable Rasheed, A Ana TARGET WORKER Unavailable Unavailable Re-disclosure Warning The records that [...] is protected by Article 27-F of the [facility] Public Health law. If you continue you may have access to information: Regarding HIV / AIDS; Provided by facilities licensed or operated by the [facility] Office of Mental Health; or Provided by the [facility] Office for People With Developmental Disabilities. If such information is present, then the following [facility] mandated warning applies: This information has [...] law may result in a fine or residential sentence or both. A general authorization for the release of medical or other information is NOT sufficient authorization for further disc losure. Encounters Encounter Providers Location Date Indications Data Source(s ) OFFICE OUTPATIENT NEW 30 MINUTES Attender: CARYN VALENTINE Physic al Therapy 05/24/2020 12:30:00 PM EST MED[facility] ([facility]) Ramy Montaño MD: [address] [place] [address], Ph. Attender: Ramy Montaño MD [facility] Medical 05/19/2020 12:00:00 AM EST [facility] ([facility]) Lisbeth Rees PA-C: [address] [place] [address], Ph. Attender: Lisbeth VALENTINE [facility] Medical 05/01/2020 12:00:00 AM EDT [facility] Lisbeth Rees PA-C: [address] [place] [address], Ph. Attender: Lisbeth VALENTINE [facility] Medical 05/01/2020 12:00:00 AM EDT [facility]) Outpatient Attender: MARILEE HUNT ALL 04/08/2020 07:07:04 P M EDT [facility] Outpatient Attender: Ana HUNT ALL 04/08/2020 07:0 7:03 PM EDT [facility] Medications Medication Brand Name Start [...] 05/24/2020 12:00:00 AM EST active [facility] ([facility] ) 1-1 % [...] type / Coverage type Policy ID Covered libertarian ID Covered libertarian's relationship to ramires Policy Ramires Plan Information [facility] [id number] SP [id number] 200 [facility] [id number] S [id number] Problems, Conditions, and Diagnoses Code Display Name Description Problem Type Effective Dates Data Source(s) 78893858132334 History of traumatic brain injury Histor y of Traumatic Brain Injury Problem 05/02/2020 12:00:00 AM EDT [facility] ([facility]) [id number] History of eating disorder History of Eating Disord er Problem 05/02/2020 12:00:00 AM EDT [facility] ([facility]) [id number] Painless rectal bleeding Painless Rectal Bleeding Prob gaby 05/02/2020 12:00:00 AM EDT [facility] ([facility]) 10853021 Migraine Migraine Problem 05/02/2020 12:00:00 AM ED T C[facility] ([facility]) 327137411 Attention deficit hyperactivity disorder Attention Deficit Hyperactivity Disorder Problem 05/02/2020 12:00:00 AM EDT [facility] [id number] Posttraumatic stress disorder Posttraumatic Stress Dis order Problem 05/02/2020 12:00:00 AM EDT [facility] ([facility]) [id number] History of traumatic brain injury Histor y of Traumatic Brain Injury Problem 05/02/2020 12:00:00 AM EDT [facility] ([facility]) [id number] History of eating disorder History of Eating Disord er Problem 05/02/2020 12:00:00 AM EDT [facility] ([facility]) 708246065 Painless rectal bleeding Painless Rectal Bleeding Prob gaby 05/02/2020 12:00:00 AM EDT [facility] ([facility]) 81322575 Migraine Migraine Problem 05/02/2020 12:00:00 AM ED T [facility] ([facility]) 585521137 Attention deficit hyperactivity disorder Attention Deficit Hyperactivity Disorder Problem 05/02/2020 12:00:00 AM EDT [facility] 88686489 Posttraumatic stress disorder Posttraumatic Stress Dis order Problem 05/02/2020 12:00:00 AM EDT [facility] ([facility]) 42525245 Seizure Seizure Problem 05/01/2020 12:00:00 AM ED T [facility] ([facility]) 70595386 Depressive disorder Depressive Disorder Problem 1 12:00:00 AM EDT [facility] ([facility]) 98009819 Anxiety Anxiety Problem 05/01/2020 12:00:00 AM ED T [facility] ([facility]) 04217473 Seizure Seizure Problem 05/01/2020 12:00:00 AM ED T [facility] ([facility]) 77179755 Depressive disorder Depressive Disorder Problem 1 12:00:00 AM EDT [facility] ([facility]) 61728777 Anxiety Anxiety Problem 05/01/2020 12:00:00 AM ED T C[facility] ([facility]) Results ID Date Data Source [id number] 08/05/2020 07:13:00 PM EST [facility] Name Value Range Interpretation Code Description Data Noemi rce(s) Supporting Document(s) SARS coronavirus 2 RNA [Presence] in Res piratory specimen by XAVIER with probe detection NEGATIVE [facility] This lab was ordered by [facility] a nd reported by [facility]. ID Date Data Source [id number] 03/21/2020 10:40:00 PM EDT [facility] Name Value Range Interpretation Code Description Data Noemi rce(s) Supporting Document(s) HCT 44.6 % 36.0-47.0 N [facility] HGB 14.9 g/dL 12.0-15.5 N [facility] MCH 33.4 G/DL pg 32.0-36.5 N [facility] MCHC 27.8 PG % 27.0-33.0 N [facility] PLATELETS 360 10 10*3/mm3 150-450 N [facility] RBC 5.36 10 10*6/mm3 4.00-5.40 N [facility] RDW 12.5 % 11.5-14.5 N [facility] WBC TOTAL 10.6 4.0-10.0 H [facility] ID Date Data Source [id number] 03/21/2020 10:40:00 PM EDT [facility] Name Value Range Interpretation Code Description Data Noemi rce(s) Supporting Document(s) BG FASTING 105 mg/dL 70-[address] [facility] Procedure Vital Signs ID Date Data Source UNK Name Value Range Interpretation Code Description Data Source(s) Body mass index (BMI) [Ratio] 34.8 kg/m2 34.8 k g/m2 [facility] ([facility]) Body weight 209.00 [lb_av] 209.00 [lb_av] MEDEN T ([facility]) Body height 65 [in_i] 65 [in_i] [facility] ([facility]) 5'5" Body temperature 97.8 [degF] 97.8 [degF] [facility] ([facility]) Body weight 3314 [oz_av] 3314 [oz_av] [facility] ([facility]) Systolic blood pressure 124 mm[Hg] 124 mm[Hg] A [facility] ([facility]) Body mass index (BMI) [Ratio] 34.5 kg/m2 34.5 k g/m2 [place] ([facility]) Body height 65 [in_i] 65 [in_i] [place] ([facility]) Diastolic blood pressure 81 mm[Hg] 81 mm[Hg] [facility] ([facility]) Body weight 3314 [oz_av] 3314 [oz_av] [facility] ([facility]) Systolic blood pressure 124 mm[Hg] 124 mm[Hg] A [place] ([facility]) Body mass index (BMI) [Ratio] 34.5 kg/m2 34.5 k g/m2 [facility] ([facility]) Body height 65 [in_i] 65 [in_i] [facility] ([facility]) Diastolic blood pressure 81 mm[Hg] 81 mm[Hg] [facility] ([facility])
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
[2020-08-07 19:59] LABS: BASO # 0.1 10^3/uL (0.0-0.2); BASO % 0.6 % (0.0-1.0); EOS # 0.2 10^3/uL (0.0-0.5); EOS % 1.6 % (0.0-3.0); HEMATOCRIT 43.1 % (36.0-47.0); HEMOGLOBIN 14.4 g/dl (12.0-15.5); LYMPH # 2.8 10^3/uL (1.5-5.0); LYMPH % 24.3 % (24.0-44.0); MEAN CORPUSCULAR HGB CONC 33.4 g/dl (32.0-36.5); MEAN CORPUSCULAR VOLUME 83.7 fl (80.0-96.0); MONO # 0.9 10^3/uL (0.0-0.8); MONO % 7.9 % (0.0-5.0); NEUTROPHILS # 7.6 10^3/uL (1.5-8.5); NEUTROPHILS % 65.3 % (36.0-66.0); PLATELET COUNT, AUTOMATED 347 10^3/uL (150-450); RED BLOOD COUNT 5.15 10^6/uL (4.00-5.40); WHITE BLOOD COUNT 11.6 10^3/uL (4.0-10.0)
[2020-08-07 20:25] LABS: BLOOD UREA NITROGEN 9 MG/DL (7-18); CALCIUM LEVEL 9.6 MG/DL (8.5-10.1); CARBON DIOXIDE LEVEL 27 MEQ/L (21-32); CHLORIDE LEVEL 107 MEQ/L (98-107); CREATININE FOR GFR 0.78 MG/DL (0.55-1.30); GLUCOSE, FASTING 89 MG/DL (70-100); POTASSIUM SERUM 4.5 MEQ/L (3.5-5.1); SODIUM LEVEL 142 MEQ/L (136-145)
[2020-08-07 20:27] LABS: HCG, SERUM QUALITATIVE NEGATIVE (NEGATIVE)
[2020-08-07] MEDS ORDERED: GI COCKTAIL 50ML BTL(HYOSCYAMINE/MAALOX/LIDOCAINE VISCOUS)(1:3:1) PO ONE (20:30)
--- NOTE | 2020-08-07 21:01 | REPVR ---
PROCEDURE INFORMATION: Exam: XR Chest, 1 View Exam date and time: 08/07/2020 7:16 PM Age: 20 years old Clinical indication: Chest pain TECHNIQUE: Imaging protocol: XR of the chest Views: 1 view. COMPARISON: No relevant prior studies available. FINDINGS: Lungs: Unremarkable. No consolidation. Pleural spaces: Unremarkable. No pleural effusion. No pneumothorax. Heart/Mediastinum: Unremarkable. No cardiomegaly. Bones/joints: Unremarkable. IMPRESSION: No acute findings. Electronically signed by: Gary Pavon On 08/07/2020 21:01:07 PM
--- NOTE | 2020-08-07 21:17 | ECGEPIP ---
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
[2020-08-07 21:48] VITALS: BP 126/80
== END 2020-08-07 21:50 | disposition home or self-care (01) ==
LOC: M ED 18:31
DX: R07.89 Other chest pain (principal); G40.909 Epilepsy, unspecified, not intractable, without status epilepticus; Z79.899 Other long term (current) drug therapy

== ENCOUNTER 2021-02-19 02:16 | Emergency (ER) | payer OTHER ==
[~2021-02-19] VITALS: Ht 165.1 cm; Wt 90.4 kg
[2021-02-19 07:51] LABS: BASO # 0.1 10^3/uL (0.0-0.2); BASO % 0.6 % (0.0-1.0); EOS # 0.2 10^3/uL (0.0-0.5); EOS % 1.9 % (0.0-3.0); HEMOGLOBIN 13.3 g/dl (12.0-15.5); LYMPH # 3.6 10^3/uL (1.5-5.0); LYMPH % 33.4 % (24.0-44.0); MEAN CORPUSCULAR HEMOGLOBIN 27.8 pg (27.0-33.0); MEAN CORPUSCULAR HGB CONC 33.3 g/dl (32.0-36.5); MEAN CORPUSCULAR VOLUME 83.5 fl (80.0-96.0); NEUTROPHILS # 5.9 10^3/uL (1.5-8.5); NEUTROPHILS % 54.9 % (36.0-66.0); PLATELET COUNT, AUTOMATED 341 10^3/uL (150-450); RED BLOOD COUNT 4.79 10^6/uL (4.00-5.40); WHITE BLOOD COUNT 10.8 10^3/uL (4.0-10.0)
[2021-02-19 08:17] LABS: BLOOD UREA NITROGEN 10 MG/DL (7-18); CALCIUM LEVEL 9.3 MG/DL (8.5-10.1); CARBON DIOXIDE LEVEL 24 MEQ/L (21-32); CHLORIDE LEVEL 109 MEQ/L (98-107); CREATININE FOR GFR 0.73 MG/DL (0.55-1.30); GLUCOSE, FASTING 93 MG/DL (70-100); POTASSIUM SERUM 3.9 MEQ/L (3.5-5.1); SODIUM LEVEL 141 MEQ/L (136-145)
--- NOTE | 2021-02-19 08:26 | REP ---
INDICATION: pelvic pain COMPARISON: None. TECHNIQUE: Transabdominal pelvic ultrasound with color Doppler evaluation of the ovaries. FINDINGS: Bladder is unremarkable and measures 6.5 x 3.5 x 6.9 cm. Normal anteverted uterus measures 7.3 x 3.4 x 5.1 cm. The endometrial complex measures 5.9 mm thickness. No discrete uterine or endometrial abnormalities are appreciated. Bilateral ovaries are normal in appearance and vascularity without evidence for torsion. Right ovary measures 2.8 x 1.9 x 2.3 cm; Doppler interrogation demonstrates normal venous flow. Left ovary measures 3.3 x 1.7 x 2.3 cm; Doppler interrogation demonstrates normal venous flow. No pelvic fluid or adnexal mass lesion. IMPRESSION: Normal pelvic ultrasound. <Electronically signed by Bartolo Bunn > 02/19/21 2421
[2021-02-19] MEDS ORDERED: CIPR-249 PO (09:40)
[2021-02-19 09:44] VITALS: BP 124/71
[2021-02-19 10:05] LABS: GC DNA AMPLIFICATION NEGATIVE (NEGATIVE)
== END 2021-02-19 09:55 | disposition home or self-care (01) ==
LOC: M ED 02:16
DX: R30.0 Dysuria (principal); R10.2 Pelvic and perineal pain; Z91.010 Allergy to peanuts; Z91.018 Allergy to other foods

== ENCOUNTER 2021-02-23 16:49 | Emergency (ER) | payer OTHER ==
[~2021-02-23] VITALS: Ht 165.1 cm; Wt 90.6 kg
[~2021-02-23 16:49] MED LIST changes: +CIPR-249 PO
[2021-02-23 16:50] VITALS: BP 125/60
== END 2021-02-23 23:00 | disposition left against medical advice (07) ==
LOC: M ED 16:49
DX: Z53.29 Procedure and treatment not carried out because of patient's decision for other reasons (principal)

== ENCOUNTER 2021-02-25 20:04 | Emergency (ER) | payer OTHER ==
[~2021-02-25] VITALS: Ht 165.1 cm; Wt 86.4 kg
[2021-02-25 20:23] VITALS: BP 130/72
== END 2021-02-25 23:54 | disposition left against medical advice (07) ==
LOC: M ED 20:04 → EDBD 20:04 → M ED 23:54
DX: Z53.29 Procedure and treatment not carried out because of patient's decision for other reasons (principal)

== ENCOUNTER 2021-03-26 20:04 | Emergency (ER) | payer OTHER ==
[~2021-03-26] VITALS: Ht 165.1 cm; Wt 90.4 kg
[2021-03-26 20:04] VITALS: BP 115/74
== END 2021-03-26 22:56 | disposition left against medical advice (07) ==
LOC: M ED 20:04
DX: Z53.29 Procedure and treatment not carried out because of patient's decision for other reasons (principal)

== ENCOUNTER 2021-03-31 18:20 | Emergency (ER) | payer OTHER ==
[~2021-03-31] VITALS: Ht 165.1 cm; Wt 95.0 kg
[2021-03-31 19:01] LABS: BASO # 0.1 10^3/uL (0.0-0.2); BASO % 0.5 % (0.0-1.0); EOS # 0.2 10^3/uL (0.0-0.5); EOS % 1.8 % (0.0-3.0); HEMATOCRIT 41.9 % (36.0-47.0); HEMOGLOBIN 13.9 g/dl (12.0-15.5); LYMPH # 3.5 10^3/uL (1.5-5.0); LYMPH % 31.6 % (24.0-44.0); MEAN CORPUSCULAR HEMOGLOBIN 27.7 pg (27.0-33.0); MEAN CORPUSCULAR HGB CONC 33.2 g/dl (32.0-36.5); MEAN CORPUSCULAR VOLUME 83.6 fl (80.0-96.0); MONO # 0.9 10^3/uL (0.0-0.8); MONO % 7.8 % (2.0-8.0); NEUTROPHILS # 6.4 10^3/uL (1.5-8.5); NEUTROPHILS % 58.1 % (36.0-66.0); PLATELET COUNT, AUTOMATED 335 10^3/uL (150-450); RED BLOOD COUNT 5.01 10^6/uL (4.00-5.40)
[2021-03-31 19:35] LABS: ALBUMIN 4.1 GM/DL (3.2-5.2); ALT/SGPT 40 U/L (12-78); BILIRUBIN,DIRECT < 0.1 MG/DL (0.0-0.2); BILIRUBIN,TOTAL 0.4 MG/DL (0.2-1.0); BLOOD UREA NITROGEN 12 MG/DL (7-18); CALCIUM LEVEL 9.6 MG/DL (8.5-10.1); CARBON DIOXIDE LEVEL 28 MEQ/L (21-32); CHLORIDE LEVEL 109 MEQ/L (98-107); CREATININE FOR GFR 0.97 MG/DL (0.55-1.30); GLUCOSE, FASTING 88 MG/DL (70-100); MAGNESIUM LEVEL 2.1 MG/DL (1.8-2.4); PHOSPHORUS LEVEL 3.2 MG/DL (2.5-4.9); POTASSIUM SERUM 4.7 MEQ/L (3.5-5.1); SODIUM LEVEL 142 MEQ/L (136-145); TOTAL PROTEIN 7.4 GM/DL (6.4-8.2)
[2021-03-31 19:54] LABS: HCG, SERUM QUALITATIVE NEGATIVE (NEGATIVE)
[2021-03-31 20:49] LABS: AMPHETAMINES LEVEL URINE NEGATIVE (NEGATIVE); BARBITURATES URINE NEGATIVE (NEGATIVE); BENZODIAZEPINES URINE NEGATIVE (NEGATIVE); CANNABINOIDS URINE NEGATIVE (NEGATIVE); COCAINE METABOLITE URINE NEGATIVE (NEGATIVE); METHADONE URINE NEGATIVE (NEGATIVE); OPIATES URINE NEGATIVE (NEGATIVE); PHENCYCLIDINE URINE NEGATIVE (NEGATIVE)
[2021-03-31 21:06] VITALS: BP 110/61
== END 2021-03-31 21:08 | disposition home or self-care (01) ==
LOC: M ED 18:20
DX: G40.909 Epilepsy, unspecified, not intractable, without status epilepticus (principal); Z91.010 Allergy to peanuts; Z91.018 Allergy to other foods

== ENCOUNTER 2021-04-03 22:50 | Emergency (ER) | payer OTHER ==
[~2021-04-03] VITALS: Ht 165.1 cm; Wt 93.0 kg
[2021-04-03 22:53] VITALS: BP 125/70
== END 2021-04-04 01:20 | disposition left against medical advice (07) ==
LOC: M ED 22:50
DX: Z53.29 Procedure and treatment not carried out because of patient's decision for other reasons (principal)

== ENCOUNTER 2021-04-09 02:12 | Emergency (ER) | payer OTHER ==
[~2021-04-09] VITALS: Ht 165.1 cm; Wt 95.0 kg
[2021-04-09 04:04] LABS: GC DNA AMPLIFICATION NEGATIVE (NEGATIVE)
[2021-04-09] MEDS ORDERED: MACR100C43 PO (04:19)
[2021-04-09 05:09] LABS: BASO # 0.1 10^3/uL (0.0-0.2); BASO % 0.5 % (0.0-1.0); EOS # 0.3 10^3/uL (0.0-0.5); EOS % 2.6 % (0.0-3.0); HEMATOCRIT 40.7 % (36.0-47.0); HEMOGLOBIN 13.8 g/dl (12.0-15.5); LYMPH # 3.9 10^3/uL (1.5-5.0); LYMPH % 30.3 % (24.0-44.0); MEAN CORPUSCULAR HEMOGLOBIN 28.3 pg (27.0-33.0); MEAN CORPUSCULAR HGB CONC 33.9 g/dl (32.0-36.5); MEAN CORPUSCULAR VOLUME 83.6 fl (80.0-96.0); MONO % 7.5 % (2.0-8.0); NEUTROPHILS # 7.6 10^3/uL (1.5-8.5); NEUTROPHILS % 58.6 % (36.0-66.0); PLATELET COUNT, AUTOMATED 320 10^3/uL (150-450); RED BLOOD COUNT 4.87 10^6/uL (4.00-5.40); WHITE BLOOD COUNT 12.9 10^3/uL (4.0-10.0)
--- NOTE | 2021-04-09 05:32 | ECGEPIP ---
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
[2021-04-09 05:38] LABS: BLOOD UREA NITROGEN 12 MG/DL (7-18); CALCIUM LEVEL 9.7 MG/DL (8.5-10.1); CARBON DIOXIDE LEVEL 27 MEQ/L (21-32); CHLORIDE LEVEL 106 MEQ/L (98-107); CK-MB VALUE MASS < 1.0 NG/ML (<3.6); CPK CREATINE PHOSPHOKINASE 47 U/L (26-192); CREATININE FOR GFR 0.66 MG/DL (0.55-1.30); GLUCOSE, FASTING 105 MG/DL (70-100); MB/CK RELATIVE INDEX 2.13 (< OR =4); POTASSIUM SERUM 4.4 MEQ/L (3.5-5.1); SODIUM LEVEL 139 MEQ/L (136-145); TROPONIN I < 0.02 NG/ML (< 0.10)
[2021-04-09 05:42] LABS: HCG, SERUM QUALITATIVE NEGATIVE (NEGATIVE)
[2021-04-09] MEDS ORDERED: ISOVUE-370 76% 100ML VIAL As Ordered ONE (05:52)
[2021-04-09] MEDS ORDERED: NS 1,000 ML IV ONE (05:55)
[2021-04-09] MEDS ORDERED: NITROFURANTOIN (MACROBID) 100 MG CAP PO ONE (05:55)
[2021-04-09] MEDS ORDERED: hydrOXYzine 10 MG TAB PO ONE (06:15)
[2021-04-09] MEDS ORDERED: HYDR-643 PO (06:25)
[2021-04-09 07:18] VITALS: BP 128/80
== END 2021-04-09 07:21 | disposition home or self-care (01) ==
LOC: M ED 02:12
DX: F41.0 Panic disorder [episodic paroxysmal anxiety] (principal); N39.0 Urinary tract infection, site not specified; Z91.010 Allergy to peanuts; Z91.018 Allergy to other foods; Z87.891 Personal history of nicotine dependence

== ENCOUNTER 2021-04-15 15:16 | Emergency (ER) | payer OTHER ==
[~2021-04-15] VITALS: Ht 165.1 cm; Wt 91.6 kg
[~2021-04-15 15:16] MED LIST changes: +HYDR-643 PO; +MACR100C43 PO
[2021-04-15 17:33] VITALS: BP 130/85
== END 2021-04-15 17:34 | disposition home or self-care (01) ==
LOC: M ED 15:16
DX: J02.9 Acute pharyngitis, unspecified (principal); R56.9 Unspecified convulsions; F33.9 Major depressive disorder, recurrent, unspecified; F41.9 Anxiety disorder, unspecified; Z91.010 Allergy to peanuts; Z91.018 Allergy to other foods

== ENCOUNTER 2021-04-30 19:12 | Emergency (ER) | payer OTHER ==
[~2021-04-30] VITALS: Ht 165.1 cm; Wt 95.0 kg
--- OUTSIDE RECORDS SUMMARY | 2021-04-30 19:20 | CCD ---
Author Author [facility] Organization [facility] Address Unknown Phone Unavailable Care Team Providers Care Coffee Host Name Role Phone Chidi Montaño MD Unavailable [...] Unavailable Unavailable Chidi Montaño MD Unavailable Unavailable Ana Iqbal LOGISTICS TEAM LEAD LOGISTICS TEAM LEAD Unavailable Unavailable ONOFRE, G EDWARD RPA Unavailable Unavailable ONOFRE, G EDWARD RPA Unavailable Unavailable ONOFRE, G EDWARD RPA Unavailable Unavailable ONOFRE, G EDWARD RPA Unavailable Unavailable ONOFRE, G EDWARD RPA Unavailable Unavailable ONOFRE, G EDWARD RPA Unavailable Unavailable ONOFRE, G EDWARD RPA Unavailable Unavailable ONOFRE, G EDWARD RPA Unavailable Unavailable ONOFRE, G EDWARD RPA Unavailable Unavailable ONOFRE, G EDWARD RPA Unavailable Unavailable ONOFRE, G EDWARD RPA Unavailable Unavailable ONOFRE, G EDWARD RPA Unavailable Unavailable ONOFRE, G EDWARD RPA Unavailable Unavailable ONOFRE, G EDWARD RPA Unavailable Unavailable ONOFRE, G EDWARD RPA Unavailable Unavailable ONOFRE, G EDWARD RPA Unavailable Unavailable ONOFRE, G EDWARD RPA Unavailable Unavailable ONOFRE, G EDWARD RPA Unavailable Unavailable ONOFRE, G EDWARD RPA Unavailable Unavailable ONOFRE, G EDWARD RPA Unavailable Unavailable ONOFRE, G EDWARD RPA Unavailable Unavailable ONOFRE, G EDWARD RPA Unavailable Unavailable ONOFRE, G EDWARD RPA Unavailable Unavailable ONOFRE, G EDWARD RPA Unavailable Unavailable ONOFRE, G EDWARD RPA Unavailable Unavailable ONOFRE, G EDWARD RPA Unavailable Unavailable ONOFRE, G EDWARD RPA Unavailable Unavailable ONOFRE, G EDWARD RPA Unavailable Unavailable ONOFRE, G EDWARD RPA Unavailable Unavailable ONOFRE, G EDWARD RPA Unavailable Unavailable ONOFRE, G EDWARD RPA Unavailable Unavailable ONOFRE, G EDWARD RPA Unavailable Unavailable ONOFRE, G EDWARD RPA Unavailable Unavailable ONOFRE, G EDWARD RPA Unavailable Unavailable ONOFRE, G EDWARD RPA Unavailable Unavailable DRAZEK, I CARYN PA Unavailable Unavailable DRAZEK, I CARYN PA Unavailable Unavailable DRAZEK, I CARYN PA Unavailable Unavailable DRAZEK, I CARYN PA Unavailable Unavailable DRAZEK, I CARYN PA Unavailable Unavailable DRAZEK, I CARYN PA Unavailable Unavailable DRAZEK, I CARYN PA Unavailable Unavailable DRAZEK, I CARYN PA Unavailable Unavailable DRAZEK, I CARNY PA Unavailable Unavailable DRAZEK, I CARYN PA [...] DRAZEK, I CARYN PA Unavailable Unavailable Rasheed, A Ana LOGISTICS TEAM LEAD Unavailable Unavailable Rasheed, A Ana LOGISTICS TEAM LEAD Unavailable Unavailable Rasheed, A Ana LOGISTICS TEAM LEAD Unavailable Unavailable Rasheed, A Ana LOGISTICS TEAM LEAD Unavailable Unavailable Rasheed, A Ana LOGISTICS TEAM LEAD Unavailable Unavailable Rasheed, A Ana LOGISTICS TEAM LEAD Unavailable Unavailable Rasheed, A Ana LOGISTICS TEAM LEAD Unavailable Unavailable Rasheed, A Ana LOGISTICS TEAM LEAD Unavailable Unavailable Rasheed, A Ana LOGISTICS TEAM LEAD Unavailable Unavailable Rasheed, A Ana LOGISTICS TEAM LEAD Unavailable Unavailable Rasheed, A Ana LOGISTICS TEAM LEAD Unavailable Unavailable Rasheed, A Ana LOGISTICS TEAM LEAD Unavailable Unavailable Rasheed, A Ana LOGISTICS TEAM LEAD Unavailable Unavailable Rasheed, A Ana LOGISTICS TEAM LEAD Unavailable Unavailable Rasheed, A Ana LOGISTICS TEAM LEAD Unavailable Unavailable Rasheed, A Ana LOGISTICS TEAM LEAD Unavailable Unavailable Rasheed, A Ana LOGISTICS TEAM LEAD Unavailable Unavailable Rasheed, A Ana LOGISTICS TEAM LEAD Unavailable Unavailable Rasheed, A Ana LOGISTICS TEAM LEAD Unavailable Unavailable Rasheed, A Ana LOGISTICS TEAM LEAD Unavailable Unavailable Rasheed, A Ana LOGISTICS TEAM LEAD Unavailable Unavailable Rasheed, A Ana LOGISTICS TEAM LEAD Unavailable Unavailable Rasheed, A Ana LOGISTICS TEAM LEAD Unavailable Unavailable Rasheed, A Ana LOGISTICS TEAM LEAD Unavailable Unavailable Rasheed, A Ana LOGISTICS TEAM LEAD Unavailable Unavailable Rasheed, A Ana LOGISTICS TEAM LEAD Unavailable Unavailable Rasheed, A Ana LOGISTICS TEAM LEAD Unavailable Unavailable Rasheed, A Ana LOGISTICS TEAM LEAD Unavailable Unavailable Rasheed, A Ana LOGISTICS TEAM LEAD Unavailable Unavailable Rasheed, A Ana LOGISTICS TEAM LEAD Unavailable Unavailable Rasheed, A Ana LOGISTICS TEAM LEAD Unavailable Unavailable Scordo, M Lisbeth PA Unavailable [...] Unavailable Scordo, M Lisbeth PA Unavailable Unavailable Re-disclosure Warning The records that [...] protected by Article 27-F of the [facility] Public Health law. If you continue you may have access to information: Regarding HIV / AIDS; Provided by facilities licensed or operated by the [facility] Office of Mental Health; or Provided by the [facility] Office for People With Developmental Disabilities. If such information is present, then the following [facility] mandated warning applies: This information has [...] law may result in a fine or group home sentence or both. A general authorization for the release of medical or other information is NOT sufficient authorization for further disc losure. Encounters Encounter Providers Location Date Indications Data Source(s ) Outpatient Attender: JIM ONOFRE [facility] 02/12 11:35:54 AM EDT - 02/12/2021 02:02:42 PM EDT [facility] Outpatient 11/07/2020 04:01:15 PM EDT - 04:01:48 PM EDT [facility] ([facility]) Outpatient 11/03/2020 12:44:27 PM EDT - 021 01:16:17 PM EDT [facility] ([facility]) Outpatient 10/18/2020 01:43:24 PM EDT - 021 01:43:57 PM EDT [facility] ([facility]) Outpatient 10/10/2020 02:07:23 PM EDT - 021 02:07:57 PM EDT [facility] ([facility]) OFFICE OUTPATIENT NEW 30 MINUTES Attender: CARYN VALENTINE [facility] 05/24/2020 12:30:00 PM EST [facility] ([facility]) Ramy Montaño MD: [address] [place] [address], Ph. Attender: Ramy Montaño MD [facility] Medical 05/19/2020 12:00:00 AM EST [facility] ([facility]) YURI VigilC: [address] [place] [address], Ph. Attender: Lisbeth VALENTINE [facility] Medical 05/01/2020 12:00:00 AM EDT [facility] ([facility]) Lisbeth Rees PA-C: [address] [place] [address], Ph. Attender: Lisbeth VALENTINE [facility] Medical 05/01/2020 12:00:00 AM EDT [facility] ([facility]) Outpatient Attender: MARILEE Iqbal LOGISTICS TEAM LEAD ALL 04/08/2020 07:07:04 P M EDT [facility] Outpatient Attender: Ana Iqbal LOGISTICS TEAM LEAD ALL 04/08/2020 07:0 7:03 PM EDT [facility] Medications Medication Brand Name Start Date Product Form Dose Route Admi nistrative Instructions Pharmacy Instructions Status Indications Reaction Description Data Source(s) 500 mg 08/07/2020 12:00:00 AM EST tablet 60 TAKE ONE TABLET BY MOUTH TWICE A DAY TAKE ONE TABLET BY MOUTH TWICE A DAY SOLD: 08/07/2020 [facility] 50 mg 06/15/2020 12:00:00 AM EST tablet 15 TAKE ONE TABLET BY MOUTH EVERY 4- 6 HOURS NEEDED FOR PAIN MAXIMUM DAILY DOSE = 4 TABLETS TAKE ONE TABLET BY MOUTH EVERY 4-6 HOURS NEEDED FOR PAIN MAXIMUM DAILY DOSE = 4 TABLETS SOLD: 06/21/2020 [facility] 28 mg iron- 800 mcg 06/15/2020 12:00:00 AM EST tablet 30 TAKE ONE TABLET BY MOUTH ONCE DAILY TAKE ONE TABLET BY MOUTH ONCE DAILY SOLD: 07/13/2020 [facility] 28 mg iron- 800 mcg 06/15/2020 12:00:00 AM EST tablet 30 TAKE ONE TABLET BY MOUTH ONCE DAILY TAKE ONE TABLET BY MOUTH ONCE DAILY SOLD: 06/15/2020 [facility] tramadol hydrochloride 50 MG Oral Tablet Tramadol HCL 05/24/2020 12:00:00 AM EST active [facility] ([facility]) 1-1 % 04/27/2020 12:00:00 AM EDT foam 10 APPLY RECTALLY TWO TIMES A DAY APPLY RECTALLY TWO TIMES A DAY SOLD: 04/27/2020 [facility] 875-125 mg 03/22/2020 12:00:00 AM EDT tablet 14 TAKE ONE TABLET BY MOUTH TWICE A DAY FOR 7 DAYS TAKE ONE TABLET BY MOUTH TWICE A DAY FOR 7 DAYS SOLD: 03/22/2020 [facility] 10 mg 03/22/2020 12:00:00 AM EDT capsule 28 TAKE ONE CAPSULE BY MOUTH EVERY 6 HOURS NEEDED FOR IRRITABLE BOWEL SYMPTOMS TAKE ONE CAPSULE BY MOUTH EVERY 6 HOURS NEEDED FOR IRRITABLE BOWEL SYMPTOMS SOLD: 03/22/2020 [facility] 2.5 % 03/22/2020 12:00:00 AM EDT cream with perineal janet licator 30 APPLY 1 APPLICATION THREE TIMES A DAY APPLY 1 APPLICATION THREE TIMES A DAY SOLD: 03/22/2020 [facility] Insurance Providers Payer name Policy type / Coverage type Policy ID Covered green party ID Covered green party's relationship to ramires Policy Ramires Plan Information [employer] [id number] Self [id number] MAURICE [id number] SP [id number] [employer] C[employer] [place] O [id number] Problems, Conditions, and Diagnoses Code Display Name Description Problem Type Effective Dates Data Source(s) 33053516759209 History of traumatic brain injury Histor y of Traumatic Brain Injury Problem 05/02/2020 12:00:00 AM EDT [facility] ([facility]) [id number] History of eating disorder History of Eating Disord er Problem 05/02/2020 12:00:00 AM EDT [facility] ([facility]) [id number] Painless rectal bleeding Painless Rectal Bleeding Prob gaby 05/02/2020 12:00:00 AM EDT [facility] ([facility]) [id number] Migraine Migraine Problem 05/02/2020 12:00:00 AM ED T [facility] ([facility]) [id number] Attention deficit hyperactivity disorder Attention Deficit Hyperactivity Disorder Problem 05/02/2020 12:00:00 AM EDT [facility] ([facility] to [facility]) [id number] Posttraumatic stress disorder Posttraumatic Stress Dis order Problem 05/02/2020 12:00:00 AM EDT [facility] ([facility]) [id number] History of traumatic brain injury Histor y of Traumatic Brain Injury Problem 05/02/2020 12:00:00 AM EDT [facility] ([facility]) [id number] History of eating disorder History of Eating Disord er Problem 05/02/2020 12:00:00 AM EDT [facility] ([facility]) [id number] Painless rectal bleeding Painless Rectal Bleeding Prob gaby 05/02/2020 12:00:00 AM EDT [facility] ([facility]) [id number] Migraine Migraine Problem 05/02/2020 12:00:00 AM ED T [facility] ([facility]) [id number] Attention deficit hyperactivity disorder Attention Deficit Hyperactivity Disorder Problem 05/02/2020 12:00:00 AM EDT [facility] ([facility]) 97572445 Posttraumatic stress disorder Posttraumatic Stress Dis order Problem 05/02/2020 12:00:00 AM EDT [facility] ([facility]) [id number] Seizure Seizure Problem 05/01/2020 12:00:00 AM ED T [facility] ([facility]) 09754218 Depressive disorder Depressive Disorder Problem 1 12:00:00 AM EDT [facility] ([facility]) 47498032 Anxiety Anxiety Problem 05/01/2020 12:00:00 AM ED T [place] ([facility]) 91978778 Seizure Seizure Problem 05/01/2020 12:00:00 AM ED T [place] ([facility]) 28594603 Depressive disorder Depressive Disorder Problem 1 12:00:00 AM EDT [facility] ([facility]) [id number] Anxiety Anxiety Problem 05/01/2020 12:00:00 AM ED T [facility] ([facility]) Surgeries/Procedures No Information Results ID Date Data Source [id number] 08/05/2020 07:13:00 PM EST [facility] Name Value Range Interpretation Code Description Data Noemi rce(s) Supporting Document(s) SARS coronavirus 2 RNA [Presence] in Res piratory specimen by XAVIER with probe detection NEGATIVE [facility] This lab was ordered by [facility] a nd reported by [facility]. ID Date Data Source [id number] 03/21/2020 10:40:00 PM EDT [facility] Name Value Range Interpretation Code Description Data Noemi rce(s) Supporting Document(s) HCT 44.6 % 36.0-47.0 N [facility] HGB 14.9 g/dL 12.0-15.5 N [facility] MCH 33.4 G/DL pg 32.0-36.5 N [facility] MCHC 27.8 PG % 27.0-33.0 N [facility] PLATELETS 360 10 10*3/mm3 150-450 N [facility] RBC 5.36 10 10*6/mm3 4.00-5.40 N [facility] RDW 12.5 % 11.5-14.5 N [facility] WBC TOTAL 10.6 4.0-10.0 H [facility] ID Date Data Source [id number] 03/21/2020 10:40:00 PM EDT [facility] Name Value Range Interpretation Code Description Data Noemi rce(s) Supporting Document(s) BG FASTING 105 mg/dL 70-100 H [facility] Procedure Social History No Information Vital Signs ID Date Data Source UNK Name Value Range Interpretation Code Description Data Source(s) Body temperature 97.8 [degF] 97.8 [degF] [facility] Body height 65 [in_i] 65 [in_i] [facility] ([facility]) 5'5" Body weight 209.00 [lb_av] 209.00 [lb_av] [facility] ([facility] Body mass index (BMI) [Ratio] 34.8 kg/m2 34.8 k g/m2 [facility] Body height 65 [in_i] 65 [in_i] [place] ([facility]) Diastolic blood pressure 81 mm[Hg] 81 mm[Hg] [facility] ([facility]) Diastolic blood pressure 81 mm[Hg] 81 mm[Hg] [place] ([facility]) Body mass index (BMI) [Ratio] 34.5 kg/m2 34.5 k g/m2 [facility] ([facility]) Systolic blood pressure 124 mm[Hg] 124 mm[Hg] A [place] ([facility]) Body weight 3314 [oz_av] 3314 [oz_av] [facility] ([facility]) Body height 65 [in_i] 65 [in_i] [facility] ([facility]) Body mass index (BMI) [Ratio] 34.5 kg/m2 34.5 k g/m2 [facility] ([facility]) Systolic blood pressure 124 mm[Hg] 124 mm[Hg] A ROSANNE ([facility]) Body weight 3314 [oz_av] 3314 [oz_av] [facility] ([facility])
--- OUTSIDE RECORDS SUMMARY | 2021-04-30 20:31 | CCD ---
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 Name Role Phone Chidi Montaño MD Unavailable [...] Unavailable Unavailable Chidi Montaño MD Unavailable Unavailable hCidi Montaño MD Unavailable Unavailable Chidi Montaño MD Unavailable Unavailable Chidi Montaño MD Unavailable Unavailable Chidi Montaño MD Unavailable Unavailable Chidi Montaño MD Unavailable Unavailable Chidi Montaño MD Unavailable Unavailable Chidi Montaño MD Unavailable Unavailable Chidi Montaño MD Unavailable Unavailable Chidi Montaño MD Unavailable Unavailable Chidi Montaño MD Unavailable Unavailable Chidi Montaño MD Unavailable Unavailable Chidi Montaño MD Unavailable Unavailable Ana Iqbal OUTDOOR RECREATION SPECIALIST OUTDOOR RECREATION SPECIALIST Unavailable Unavailable ONOFRE, G EDWARD RPA Unavailable [...] I CARYN PA Unavailable Unavailable DRAZEK, I CRAYN PA Unavailable Unavailable DRAZEK, I CARYN PA [...] CARYN PA Unavailable Unavailable Rasheed, A Ana OUTDOOR RECREATION SPECIALIST Unavailable Unavailable Rasheed, A Ana OUTDOOR RECREATION SPECIALIST Unavailable Unavailable Rasheed, A Ana OUTDOOR RECREATION SPECIALIST Unavailable Unavailable Rasheed, A Ana OUTDOOR RECREATION SPECIALIST Unavailable Unavailable Rasheed, A Ana OUTDOOR RECREATION SPECIALIST Unavailable Unavailable Rasheed, A Ana OUTDOOR RECREATION SPECIALIST Unavailable Unavailable Rasheed, A Ana OUTDOOR RECREATION SPECIALIST Unavailable Unavailable Rasheed, A Ana OUTDOOR RECREATION SPECIALIST Unavailable Unavailable Rasheed, A Ana OUTDOOR RECREATION SPECIALIST Unavailable Unavailable Rasheed, A Ana OUTDOOR RECREATION SPECIALIST Unavailable Unavailable Rasheed, A Ana OUTDOOR RECREATION SPECIALIST Unavailable Unavailable Rasheed, A Ana OUTDOOR RECREATION SPECIALIST Unavailable Unavailable Rasheed, A Ana OUTDOOR RECREATION SPECIALIST Unavailable Unavailable Rasheed, A Ana OUTDOOR RECREATION SPECIALIST Unavailable Unavailable Rasheed, A Ana OUTDOOR RECREATION SPECIALIST Unavailable Unavailable Rasheed, A Ana OUTDOOR RECREATION SPECIALIST Unavailable Unavailable Rasheed, A Ana OUTDOOR RECREATION SPECIALIST Unavailable Unavailable Rasheed, A Ana OUTDOOR RECREATION SPECIALIST Unavailable Unavailable Rasheed, A Ana OUTDOOR RECREATION SPECIALIST Unavailable Unavailable Rasheed, A Ana OUTDOOR RECREATION SPECIALIST Unavailable Unavailable Rasheed, A Ana OUTDOOR RECREATION SPECIALIST Unavailable Unavailable Rasheed, A Ana OUTDOOR RECREATION SPECIALIST Unavailable Unavailable Rasheed, A Ana OUTDOOR RECREATION SPECIALIST Unavailable Unavailable Rasheed, A Ana OUTDOOR RECREATION SPECIALIST Unavailable Unavailable Rasheed, A Ana OUTDOOR RECREATION SPECIALIST Unavailable Unavailable Rasheed, A Ana OUTDOOR RECREATION SPECIALIST Unavailable Unavailable Rasheed, A Ana OUTDOOR RECREATION SPECIALIST Unavailable Unavailable Rasheed, A Ana OUTDOOR RECREATION SPECIALIST Unavailable Unavailable Rasheed, A Ana OUTDOOR RECREATION SPECIALIST Unavailable Unavailable Rasheed, A Ana OUTDOOR RECREATION SPECIALIST Unavailable Unavailable Rasheed, A Ana OUTDOOR RECREATION SPECIALIST Unavailable Unavailable Scordo, M Lisbeth PA Unavailable [...] is protected by Article 27-F of the [facility] Public Health law. If you continue you may have access to information: Regarding HIV / AIDS; Provided by facilities licensed or operated by the [facility] Office of Mental Health; or Provided by the [facility] Office for People With Developmental Disabilities. If such information is present, then the following [facility] mandated warning applies: This information [...] law may result in a fine or fci sentence or both. A general authorization for the release of medical or other information is NOT sufficient authorization for further disc losure. Encounters Encounter Providers Location Date Indications Data Source(s ) Outpatient Attender: JIM ONOFRE [facility] 02/12 11:35:54 AM EDT - 02/12/2021 02:02:42 PM EDT [facility] Outpatient 11/07/2020 04:01:15 PM EDT - 04:01:48 PM EDT [facility] ([facility]) Outpatient 11/03/2020 12:44:27 PM EDT - 021 01:16:17 PM EDT [facility] ([facility]) Outpatient 10/18/2020 01:43:24 PM EDT - 021 01:43:57 PM EDT [facility] ([facility]) Outpatient 10/10/2020 02:07:23 PM EDT - 021 02:07:57 PM EDT [facility] ([facility]) OFFICE OUTPATIENT NEW 30 MINUTES Attender: CARYN VALENTINE [facility] 05/24/2020 12:30:00 PM EST [facility] ([facility]) Ramy Montaño MD: [address] [place] [address], Ph. Attender: Ramy Montaño MD [facility] Medical 05/19/2020 12:00:00 AM EST [facility] ([facility]) YURI VigilC: [address] [place] [address], Ph. Attender: Lisbeth VALENTINE [facility] Medical 05/01/2020 12:00:00 AM EDT [facility] ([facility]) Lisbeth Rees PA-C: [address] [place] [address], Ph. Attender: Lisbeth VALENTINE [facility] Medical 05/01/2020 12:00:00 AM EDT [facility] ([facility]) Outpatient Attender: MARILEE Iqbal OUTDOOR RECREATION SPECIALIST ALL 04/08/2020 07:07:04 P M EDT [facility] Outpatient Attender: Ana Iqbal OUTDOOR RECREATION SPECIALIST ALL 04/08/2020 07:0 7:03 PM EDT [facility] Medications Medication Brand Name Start Date [...] relationship to ramires Policy Ramires Plan Information [employer] [id number] Self [id number] MAURICE [id number] SP [id number] MAURICE CARE ID O [id number] S [id number] Problems, Conditions, and Diagnoses Code Display Name Description Problem Type Effective Dates Data Source(s) 20642191254689 History of traumatic brain injury Histor y of Traumatic Brain Injury Problem 05/02/2020 12:00:00 AM EDT [facility] ([facility]) [id number] History of eating disorder History of Eating Disord er Problem 05/02/2020 12:00:00 AM EDT [facility] ([facility]) [id number] Painless rectal bleeding Painless Rectal Bleeding Prob gaby 05/02/2020 12:00:00 AM EDT [facility] ([facility]) [id number] Migraine Migraine Problem 05/02/2020 12:00:00 AM ED T [facility] ([facility]) [id number] Attention deficit hyperactivity disorder Attention Deficit Hyperactivity Disorder Problem 05/02/2020 12:00:00 AM EDT [facility] ([facility]) [id number] Posttraumatic stress disorder Posttraumatic Stress Dis order Problem 05/02/2020 12:00:00 AM EDT [facility] ([facility]) [id number] History of traumatic brain injury Histor y of Traumatic Brain Injury Problem 05/02/2020 12:00:00 AM EDT [facility] ([facility]) [id number] History of eating disorder History of Eating Disord er Problem 05/02/2020 12:00:00 AM EDT [facility] ([facility]) [id number] Painless rectal bleeding Painless Rectal Bleeding Prob gaby 05/02/2020 12:00:00 AM EDT [facility] ([facility]) 92220805 Migraine Migraine Problem 05/02/2020 12:00:00 AM ED T [facility] ([facility]) [id number] Attention deficit hyperactivity disorder Attention Deficit Hyperactivity Disorder Problem 05/02/2020 12:00:00 AM EDT [facility] ([facility]) [id number] Posttraumatic stress disorder Posttraumatic Stress Dis order Problem 05/02/2020 12:00:00 AM EDT [facility] ([facility]) 03911121 Seizure Seizure Problem 05/01/2020 12:00:00 AM ED T [facility] ([facility]) 75283870 Depressive disorder Depressive Disorder Problem 1 12:00:00 AM EDT [facility] ([facility]) 69252995 Anxiety Anxiety Problem 05/01/2020 12:00:00 AM ED T [facility] ([facility]) 10830968 Seizure Seizure Problem 05/01/2020 12:00:00 AM ED T [facility] ([facility]) 89057196 Depressive disorder Depressive Disorder Problem 1 12:00:00 AM EDT [facility] ([facility]) 50309797 Anxiety Anxiety Problem 05/01/2020 12:00:00 AM ED T [facility] ([facility]) Surgeries/Procedures No Information Results ID Date Data Source [id number] 08/05/2020 07:13:00 PM EST [facility] Name Value Range Interpretation Code Description Data Noemi rce(s) Supporting Document(s) SARS coronavirus 2 RNA [Presence] in Res piratory specimen by XAVIER with probe detection NEGATIVE [facility] This lab was ordered by [facility] a nd reported by [facility]. ID Date Data Source [id number] 03/21/2020 10:40:00 PM EDT [facility] Name Value Range Interpretation Code Description Data Noemi rce(s) Supporting Document(s) HCT 44.6 % 36.0-47.0 N [facility] HGB 14.9 g/dL 12.0-15.5 N [facility] MCH 33.4 G/DL pg 32.0-36.5 N [facility] MCHC 27.8 PG % 27.0-33.0 N [facility] PLATELETS 360 10 10*3/mm3 150-450 N [facility] RBC 5.36 10 10*6/mm3 4.00-5.40 N [facility] RDW 12.5 % 11.5-14.5 N [facility] WBC TOTAL 10.6 4.0-10.0 H [facility] ID Date Data Source [id number] 03/21/2020 10:40:00 PM EDT [facility] Name Value Range Interpretation Code Description Data Noemi rce(s) Supporting Document(s) BG FASTING 105 mg/dL 70-[address] [facility] Procedure Social History No Information Vital Signs ID Date Data Source UNK Name Value Range Interpretation Code Description Data Source(s) Body temperature 97.8 [degF] 97.8 [degF] [facility] ([facility]) Body height 65 [in_i] 65 [in_i] [facility] ([facility]) 5'5" Body weight 209.00 [lb_av] 209.00 [lb_av] MEDEN T ([facility] ) Body mass index (BMI) [Ratio] 34.8 kg/m2 34.8 k g/m2 [facility] ([facility] ) Diastolic blood pressure 81 mm[Hg] 81 mm[Hg] [facility] ([facility]) Body height 65 [in_i] 65 [in_i] [facility] ([facility]) Body mass index (BMI) [Ratio] 34.5 kg/m2 34.5 k g/m2 [facility] ([facility]) Systolic blood pressure 124 mm[Hg] 124 mm[Hg] A THENA ([facility]) Body weight 3314 [oz_av] 3314 [oz_av] [facility] ([facility]) Diastolic blood pressure 81 mm[Hg] 81 mm[Hg] [facility]IA ([facility]) Body height 65 [in_i] 65 [in_i] [facility] ([facility]) Body mass index (BMI) [Ratio] 34.5 kg/m2 34.5 k g/m2 [facility] ([facility]) Systolic blood pressure 124 mm[Hg] 124 mm[Hg] A ROSANNE ([facility]) Body weight 3314 [oz_av] 3314 [oz_av] [facility] ([facility])
--- NOTE | 2021-04-30 21:27 | REPVR ---
PROCEDURE INFORMATION: Exam: XR Left Knee Exam date and time: 04/30/2021 8:00 PM Age: 20 years old Clinical indication: Pain; Knee; Left; Additional info: L knee injury TECHNIQUE: Imaging protocol: XR Left knee. Views: 4 or more views. COMPARISON: No relevant prior studies available. FINDINGS: Bones/joints: Normal. Soft tissues: Normal. IMPRESSION: No acute findings. Electronically signed by: Gary Pavon On 04/30/2021 21:26:49 PM
[2021-04-30 22:11] VITALS: BP 110/68
== END 2021-04-30 22:13 | disposition home or self-care (01) ==
LOC: M ED 19:12
DX: S83.92XA Sprain of unspecified site of left knee, initial encounter (principal); W19.XXXA Unspecified fall, initial encounter; Y92.018 Other place in single-family (private) house as the place of occurrence of the external cause; Z91.010 Allergy to peanuts; Z91.018 Allergy to other foods

== ENCOUNTER 2021-05-08 16:41 | Inpatient (IN) | payer OTHER ==
[~2021-05-08] VITALS: Ht 165.1 cm; Wt 88.4 kg
--- OUTSIDE RECORDS SUMMARY | 2021-05-08 16:48 | CCD ---
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 ROOM. ................. : TR-08 MR Number ................... : [id number] Stay type ............. : E/R Discharge Date......... ... : 05/07/21 Admit Date ......... : 05/06/21 Admit Phys .................... : YARELISCO Date of ....... : 2000 Family Phys ................... : NO PCP Phone .................. : [phone] Age ................................ : 20 Film# .................. .:[id number] Sex ................................. : F Unsigned transcriptions are preliminary reports and do not represent a medical or legal document CT CTA CHEST NON- CORONARY W C [id number] COMPLETE:05/07/21 03:08 MWB [id number] Reason(s): chest pain tacychardic r/o PE Transcribe Initials: DEVANG, Transcribe Date: 05/07/21 09:28, Dictation Date: Copy for: EMERGENCY DEPT via mode Copy for: 710 MED REC DISCHARGED Page 4 of 4 Name Value Range Interpretation Code Description Data Noemi rce(s) Supporting Document(s) ID Date Data Source [id number] 05/07/2021 01:58:00 AM EDT [facility] Name Value Range Interpretation Code Description Data Noemi rce(s) Supporting Document(s) TROPONIN T <0.01 NG/ML 0.00 - 0.10 [facility] TROPONIN T0.1 ng/ml Recommended as the c linical threshold value forTroponin T. ID Date Data Source [id number] 05/07/2021 01:48:00 AM EDT [facility] Name Value Range Interpretation Code Description Data Noemi rce(s) Supporting Document(s) Fibrin D-dimer FEU [Mass/volume] in Platelet poor plasma 0.50 ug /mL 0.27 - 0.50 [facility] ID Date Data Source [id number] 05/06/2021 11:15:00 PM EDT [facility] Name Value Range Interpretation Code Description Data Noemi rce(s) Supporting Document(s) Magnesium [Mass/volume] in Serum or Plasma 1.7 MG/DL 1.7 - 2.2 [facility] ID Date Data Source [id number] 05/06/2021 11:15:00 PM EDT [facility] Name Value Range Interpretation Code Description Data Noemi rce(s) Supporting Document(s) Creatine kinase [Enzymatic activity/volume] in Serum or Plasma 6 4 U/L 30 - 170 [facility] ID Date Data Source [id number] 05/06/2021 11:15:00 PM EDT [facility] Name Value Range Interpretation Code Description Data Noemi rce(s) Supporting Document(s) COMPREHENSIVE METABOLIC PANEL [facility] COMPREHENSIVE METABOLIC PANEL Sodium [Moles/volume] in Serum or Plasma 139 mEq/L 134 - 153 [facility] Potassium [Moles/volume] in Serum or Plasma 3.7 mEq/L 3.6 - 5.0 [facility] Chloride [Moles/volume] in Serum or Plasma 102 mEq/L 98 - 107 [facility] Carbon dioxide, total [Moles/volume] in Serum or Plasma 25 MEQ/L 22 - 30 [facility] Glucose [Mass/volume] in Serum or Plasma 72 MG/DL 70 - 99 [facility] BUN 9 MG/DL 7 - 21 [facility] Creatinine [Mass/volume] in Serum or Plasma 0.6 MG/DL 0.7 - 1.5 L [facility] BUN/CREAT 15 8 - 27 [facility] al Protein [Mass/volume] in Serum or Plasma 7.7 G/DL 6.3 - 8.2 [facility] Albumin [Mass/volume] in Serum or Plasma 5.1 G/DL 3.9 - 5.0 H [facility] Globulin [Mass/volume] in Serum by calculation 2.6 GM/DL 2.4 - 3.2 [facility] A/G RATIO 2.0 0.8 - 2.0 [facility] Calcium [Mass/volume] in Serum or Plasma 10.1 MG/DL 8.4 - 10.2 [facility] Bilirubin.total [Mass/volume] in Serum or Plasma <0.7 MG/DL 0.2 - 1.3 [facility] Alkaline phosphatase [Enzymatic activity/volume] in Serum or Plasma 126 U/L 38 - 126 [facility] Aspartate aminotransferase [Enzymatic activity/volume] in Serum or Plasma 26 U/L 5 - 40 [facility] Alanine aminotransferase [Enzymatic activity/volume] in Seru m or Plasma 29 U/L 7 - 56 [facility] Anion gap 3 in Serum or Plasma 12.0 mmol/L 8.0 - 16.0 [facility]GE 20 [facility] GFR >60 mL/min [facility] ital AFR AMER GFR >60 mL/min [facility] spital Male GFR In terprentation 20-49 yrs >60 mL/min Normal 50-59 yrs >56 mL/min Normal 60-69 yrs >49 mL/min Normal 70-79yrs >42 mL/min Normal 80 and above >35 mL/min Normal Female GFR Interpretation 20-39 yrs >60 mL/min Normal 40-49 yrs >58 mL/min Normal 50-59 yrs >51 mL/min Normal 60-69 yrs >45 mL/min Normal 70-79 yrs >39 mL/min Normal 80 and above >32 mL/min Normal ID Date Data Source [id number] 05/06/2021 11:14:00 PM EDT [facility] Name Value Range Interpretation Code Description Data Noemi rce(s) Supporting Document(s) CBC W/AUTOMATED DIFF [facility] COMPLETE BLOOD COUNT Leukocytes [#/volume] in Blood by Automated count 10.3 10^3/uL 4.2 - 11.0 [facility] Erythrocytes [#/volume] in Blood by Automated count 5.07 10^6/uL 4. 20 - 5.40 [facility] Hemoglobin [Mass/volume] in Blood 14.2 g/dL 12.0 - 16.0 [facility] Hematocrit [Volume Fraction] of Blood by Automated count 41.3 % 3 7.0 - 47.0 [facility] Erythrocyte mean corpuscular volume [Entitic volume] by Auto mated count 81.5 fL 81.0 - 101 [facility] Erythrocyte mean corpuscular hemoglobin [Entitic mass] by Automated count 28.0 pg 27.0 - 34.0 [facility] Erythrocyte mean corpuscular hemoglobin concentration [Mass/volume] by Automated count 34.4 g/dL 31.0 - 36.0 [facility] Erythrocyte distribution width [Ratio] by Automated count 11.9 % 11.5 - 14.5 [facility] Platelets [#/volume] in Blood by Automated count 294 10^3/uL 150 - 45 0 [facility] Platelet mean volume [Entitic volume] in Blood by Automated count 9.5 fL 7.4 - 10.4 [facility] Neutrophils/100 leukocytes in Blood by Automated count 74.0 % 37. 0 - 80.0 [facility] Lymphocytes/100 leukocytes in Blood by Manual count 15.8 % 25.0 - 40.0 L [facility] Monocytes/100 leukocytes in Blood by Automated count 9.1 % 3.0 - 8.0 H [facility] Eosinophils/100 leukocytes in Blood by Automated count 0.3 % 0.0 - 7.0 [facility] Basophils/100 leukocytes in Blood by Automated count 0.5 % 0.0 - 2.5 [facility] %IG 0.3 % 0.0 - 0.0 [facility] %NRBC 0.0 % 0.0 - 0.0 [facility] al Neutrophils [#/volume] in Blood by Automated count 7.65 10^3/uL 2.00 - 6.90 H [facility] Lymphocytes [#/volume] in Blood by Automated count 1.63 10^3/uL 0.60 - 3.40 [facility] Monocytes [#/volume] in Blood by Automated count 0.94 10^3/uL 0.00 - 0.90 H [facility] Eosinophils [#/volume] in Blood by Automated count 0.03 10^3/uL 0.00 - 0.70 [facility] Basophils [#/volume] in Blood by Automated count 0.05 10^3/uL 0.00 - 0.20 [facility] #IG 0.03 10^3/uL 0.00 - 0.10 [facility] #NRBC 0.00 10^3/uL 0.00 - 0.00 [facility] MANUAL DIFF NOT INDICATED [facility] RBC MORPH NOT INDICATED [facility] ID Date Data Source [id number] 05/06/2021 11:14:00 PM EDT [facility] Name Value Range Interpretation Code Description Data Noemi rce(s) Supporting Document(s) HCG SERUM QUAL NEGATIVE NORMAL: NEGATIVE [facility] HCG SERUM QL REENTER NEGATIVE NORMAL: NEGATIVE [id number] ){ KIT EXP DATE 08-06-22 ){ PROCEDURAL CONTROL VALID ) ID Date Data Source [id number] 08/05/2020 07:13:00 PM EST [facility] Name Value Range Interpretation Code Description Data Noemi rce(s) Supporting Document(s) SARS coronavirus 2 RNA [Presence] in Res piratory specimen by XAVIER with probe detection NEGATIVE [facility] This lab was ordered by [facility] a nd reported by [facility]. ID Date Data Source [id number] 03/21/2020 10:40:[address] [facility] Name Value Range Interpretation Code Description Data Noemi rce(s) Supporting Document(s) HCT 44.6 % 36.0-47.[address] [facility] HGB 14.9 g/dL 12.0-15.[address] [facility] MCH 33.4 G/DL pg 32.0-36.5 N [facility] MCHC 27.8 PG % 27.0-33.[address] [facility] PLATELETS 360 10 10*3/mm3 150-[address] [facility] RBC 5.36 10 10*6/mm3 4.00-5.[address] [facility] RDW 12.5 % 11.5-14.[address] [facility] WBC TOTAL 10.6 4.0-10.[address] [facility] ID Date Data Source [id number] 03/21/2020 10:40:00 PM EDT [facility] Name Value Range Interpretation Code Description Data Noemi rce(s) Supporting Document(s) BG FASTING 105 mg/dL 70-100 [facility] Procedure Social History No Information Vital Signs ID Date Data Source UNK Name Value Range Interpretation Code Description Data Source(s) Body temperature 97.8 [degF] 97.8 [degF] [facility] ([facility]) Body height 65 [in_i] 65 [in_i] [facility] ([facility]) 5'5" Body weight 209.00 [lb_av] 209.00 [lb_av] MED[facility] T ([facility]) Body mass index (BMI) [Ratio] 34.8 kg/m2 34.8 k g/m2 [facility] Diastolic blood pressure 81 mm[Hg] 81 mm[Hg] [facility] ([facility]) Body height 65 [in_i] 65 [in_i] [place] ([facility]) Body mass index (BMI) [Ratio] 34.5 kg/m2 34.5 k g/m2 [facility] ([facility]) Systolic blood pressure 124 mm[Hg] 124 mm[Hg] A [facility] ([facility]) Body weight 3314 [oz_av] 3314 [oz_av] [facility] ([facility]) Diastolic blood pressure 81 mm[Hg] 81 mm[Hg] [facility] ([facility]) Body height 65 [in_i] 65 [in_i] [facility] ([facility]) Body mass index (BMI) [Ratio] 34.5 kg/m2 34.5 k g/m2 [facility] ([facility]) Systolic blood pressure 124 mm[Hg] 124 mm[Hg] A [facility] ([facility]) Body weight 3314 [oz_av] 3314 [oz_av] [facility] ([facility])
[2021-05-08] MEDS ORDERED: ONDANSETRON 4MG/2ML VIAL IV ONE (17:00)
[2021-05-08] MEDS ORDERED: NS 1,000 ML IV ONE (17:00)
[2021-05-08] MEDS: ACETAMINOPHEN TAB 650MG DOSE (2X325MG) PO ONE ×2 (17:10→19:01)
[2021-05-08 18:09] LABS: BASO % 0.3 % (0.0-1.0); EOS % 0.1 % (0.0-3.0); HEMATOCRIT 37.7 % (36.0-47.0); HEMOGLOBIN 12.7 g/dl (12.0-15.5); LYMPH # 2.3 10^3/uL (1.5-5.0); LYMPH % 16.8 % (24.0-44.0); MEAN CORPUSCULAR HEMOGLOBIN 27.9 pg (27.0-33.0); MEAN CORPUSCULAR HGB CONC 33.7 g/dl (32.0-36.5); MEAN CORPUSCULAR VOLUME 82.9 fl (80.0-96.0); MONO # 1.5 10^3/uL (0.0-0.8); MONO % 10.7 % (2.0-8.0); NEUTROPHILS # 9.8 10^3/uL (1.5-8.5); NEUTROPHILS % 71.2 % (36.0-66.0); PLATELET COUNT, AUTOMATED 237 10^3/uL (150-450); RED BLOOD COUNT 4.55 10^6/uL (4.00-5.40); WHITE BLOOD COUNT 13.8 10^3/uL (4.0-10.0)
--- OUTSIDE RECORDS SUMMARY | 2021-05-08 18:12 | CCD ---
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 mean corpuscular hemoglobin concentration [Mass/volume] by Automated count 34.4 g/dL 31.0 - 36.0 [facility] Erythrocyte distribution width [Ratio] by Automated count 11.9 % 11.5 - 14.5 [facility] Platelets [#/volume] in Blood by Automated count 294 10^3/uL 150 - 45 0 [facility] Platelet mean volume [Entitic volume] in Blood by Automated count 9.5 fL 7.4 - 10.4 [facility] Neutrophils/100 leukocytes in Blood by Automated count 74.0 % 37. 0 - 80.0 [facility] Lymphocytes/100 leukocytes in Blood by Manual count 15.8 % 25.0 - 40.0 L [facility] Monocytes/100 leukocytes in Blood by Automated count 9.1 % 3.0 - 8.0 H [facility] Eosinophils/100 leukocytes in Blood by Automated count 0.3 % 0.0 - 7.0 [facility] Basophils/100 leukocytes in Blood by Automated count 0.5 % 0.0 - 2.5 [facility] %IG 0.3 % 0.0 - 0.0 H [facility] %NRBC 0.0 % 0.0 - 0.0 [facility] Neutrophils [#/volume] in Blood by Automated count 7.65 10^3/uL 2.00 - 6.90 H [facility] Lymphocytes [#/volume] in Blood by Automated count 1.63 10^3/uL 0.60 - 3.40 [facility] Monocytes [#/volume] in Blood by Automated count 0.94 10^3/uL 0.00 - 0.90 H [facility] Eosinophils [#/volume] in Blood by Automated count 0.03 10^3/uL 0.00 - 0.70 [facility] Basophils [#/volume] in Blood by Automated count 0.05 10^3/uL 0.00 - 0.20 [facility] #IG 0.03 10^3/uL 0.00 - 0.10 [facility] #NRBC 0.00 10^3/uL 0.00 - 0.00 [facility] MANUAL DIFF NOT INDICATED [facility] RBC MORPH NOT INDICATED [facility] spital ID Date Data Source [id number] 05/06/2021 11:14:00 PM EDT [facility] Name Value Range Interpretation Code Description Data Noemi rce(s) Supporting Document(s) HCG SERUM QUAL NEGATIVE NORMAL: NEGATIVE [facility] HCG SERUM QL REENTER NEGATIVE NORMAL: [id number] ){ KIT EXP DATE 08-06-22 ){ PROCEDURAL CONTROL VALID ) ID Date Data Source [id number] 08/05/2020 07:13:00 PM EST [facility] Name Value Range Interpretation Code Description Data Noemi rce(s) Supporting Document(s) SARS coronavirus 2 RNA [Presence] in Res piratory specimen by XAVIER with probe detection NEGATIVE [facility] This lab was ordered by [facility] a nd reported by [facility]. ID Date Data Source [id number] 03/21/2020 10:40:00 PM EDT [facility] Name Value Range Interpretation Code Description Data Noemi rce(s) Supporting Document(s) HCT 44.6 % 36.0-47.0 N [facility] HGB 14.9 g/dL 12.0-15.5 N [facility] MCH 33.4 G/DL pg 32.0-36.5 N [facility] MCHC 27.8 PG % 27.0-33.0 N [facility] PLATELETS 360 10 10*3/mm3 150-450 N [facility] RBC 5.36 10 10*6/mm3 4.00-5.40 N [facility] RDW 12.5 % 11.5-14.5 N [facility] WBC TOTAL 10.6 4.0-10.0 H [facility] ID Date Data Source [id number] 03/21/2020 10:40:[address] [facility] Name Value Range Interpretation Code Description Data Noemi rce(s) Supporting Document(s) BG FASTING 105 mg/dL 70-[address] [facility] Procedure Social History No Information Vital Signs ID Date Data Source UNK Name Value Range Interpretation Code Description Data Source(s) Body temperature 97.8 [degF] 97.8 [degF] [facility] ([facility]) Body height 65 [in_i] 65 [in_i] [facility] ([facility]) 5'5" Body weight 209.00 [lb_av] 209.00 [lb_av] MEDEN T ([facility]) Body mass index (BMI) [Ratio] 34.8 kg/m2 34.8 k g/m2 [facility] ([facility]) Diastolic blood pressure 81 mm[Hg] 81 mm[Hg] CECILIA ([facility]) Body mass index (BMI) [Ratio] 34.5 kg/m2 34.5 k g/m2 [facility] ([facility]) Body height 65 [in_i] 65 [in_i] CECILIA ([facility]) Systolic blood pressure 124 mm[Hg] 124 mm[Hg] A [facility] ([facility]) Body weight 3314 [oz_av] 3314 [oz_av] CECILIA ([facility]) Diastolic blood pressure 81 mm[Hg] 81 mm[Hg] CECILIA ([facility]) Body height 65 [in_i] 65 [in_i] CECILIA ([facility]) Body mass index (BMI) [Ratio] 34.5 kg/m2 34.5 k g/m2 CECIL[facility] ([facility]) Systolic blood pressure 124 mm[Hg] 124 mm[Hg] A [facility] ([facility]) Body weight 3314 [oz_av] 3314 [oz_av] CECILIA ([facility])
[2021-05-08 18:24] LABS: INR 1.05; PROTHROMBIN TIME 14.1 SECONDS (12.7-14.5)
[2021-05-08 18:25] LABS: PARTIAL THROMBOPLASTIN TIME 39.4 SECONDS (25.9-37.0)
[2021-05-08 18:55] LABS: HCG, SERUM QUALITATIVE NEGATIVE (NEGATIVE)
[2021-05-08] MEDS ORDERED: LIDOCAINE VISCOUS 2% SOLN 15ML UDC PO ONE (18:55)
[2021-05-08 18:58] LABS: ACETAMINOPHEN LEVEL < 2.0 UG/ML (10.0-30.0); ALBUMIN 3.5 GM/DL (3.2-5.2); ALT/SGPT 35 U/L (12-78); BILIRUBIN,DIRECT < 0.1 MG/DL (0.0-0.2); BILIRUBIN,TOTAL 0.4 MG/DL (0.2-1.0); BLOOD UREA NITROGEN 6 MG/DL (7-18); CALCIUM LEVEL 9.1 MG/DL (8.5-10.1); CARBON DIOXIDE LEVEL 25 MEQ/L (21-32); CHLORIDE LEVEL 108 MEQ/L (98-107); CREATININE FOR GFR 0.72 MG/DL (0.55-1.30); ETHYL ALCOHOL (ETHANOL) < 0.003 % (0.000-0.010); GLUCOSE, FASTING 84 MG/DL (70-100); LIPASE 47 U/L (73-393); POTASSIUM SERUM 5.3 MEQ/L (3.5-5.1); SALICYLATE LEVEL < 1.7 MG/DL (5.0-30.0); SODIUM LEVEL 135 MEQ/L (136-145); THYROID STIMULATING HORMONE 0.586 uIU/ML (0.463-3.98); TOTAL PROTEIN 7.3 GM/DL (6.4-8.2)
--- NOTE | 2021-05-08 20:37 | REP ---
INDICATION: cough, vomiting. COMPARISON: 08/07/2020 TECHNIQUE: AP portable seated FINDINGS: The lung villegas are well inflated. The CP angles are sharply defined. There is no lateral pleural thickening, apical scarring or pneumothorax. No infiltrate or effusion. The heart, mediastinal and hilar contours are normal for AP portable projection. Bony thorax shows no acute finding. No free air under the diaphragm. IMPRESSION: No acute cardiopulmonary change, stable chest. <Electronically signed by Kj Horn > 05/08/212032
[2021-05-08] MEDS ORDERED: AMPICILLIN SOD/SULBACTAM SOD 3 GM in D5W MINI-BAG PLUS 100 ML IV ONE (21:40)
[2021-05-08 22:13] LABS: AMPHETAMINES LEVEL URINE NEGATIVE (NEGATIVE); BARBITURATES URINE NEGATIVE (NEGATIVE); BENZODIAZEPINES URINE NEGATIVE (NEGATIVE); CANNABINOIDS URINE NEGATIVE (NEGATIVE); COCAINE METABOLITE URINE NEGATIVE (NEGATIVE); METHADONE URINE NEGATIVE (NEGATIVE); OPIATES URINE NEGATIVE (NEGATIVE); PHENCYCLIDINE URINE NEGATIVE (NEGATIVE)
[2021-05-08] MEDS ORDERED: ISOVUE-370 76% 100ML VIAL As Ordered ONE (22:23)
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
--- OUTSIDE RECORDS SUMMARY | 2021-05-08 22:44 | CCD ---
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 count 34.4 g/dL 31.0 - 36.0 [facility] Erythrocyte distribution width [Ratio] by Automated count 11.9 % 11.5 - 14.5 [facility] Platelets [#/volume] in Blood by Automated count 294 10^3/uL 150 - 45 0 [facility] Platelet mean volume [Entitic volume] in Blood by Automated count 9.5 fL 7.4 - 10.4 [facility] Neutrophils/100 leukocytes in Blood by Automated count 74.0 % 37. 0 - 80.0 [facility] Lymphocytes/100 leukocytes in Blood by Manual count 15.8 % 25.0 - 40.0 L [facility] Monocytes/100 leukocytes in Blood by Automated count 9.1 % 3.0 - 8.0 H [facility] Eosinophils/100 leukocytes in Blood by Automated count 0.3 % 0.0 - 7.0 [facility] Basophils/100 leukocytes in Blood by Automated count 0.5 % 0.0 - 2.5 [facility] %IG 0.3 % 0.0 - 0.0 [facility] %NRBC 0.0 % 0.0 - 0.0 [facility] Neutrophils [#/volume] in Blood by Automated count 7.65 10^3/uL 2.00 - 6.90 H [facility] Lymphocytes [#/volume] in Blood by Automated count 1.63 10^3/uL 0.60 - 3.40 [facility] Monocytes [#/volume] in Blood by Automated count 0.94 10^3/uL 0.00 - 0.90 H [facility] Eosinophils [#/volume] in Blood by Automated count 0.03 10^3/uL 0.00 - 0.70 [facility] Basophils [#/volume] in Blood by Automated count 0.05 10^3/uL 0.00 - 0.20 [facility] #IG 0.03 10^3/uL 0.00 - 0.10 [facility] #NRBC 0.00 10^3/uL 0.00 - 0.00 [facility] MANUAL DIFF NOT INDICATED [facility] RBC MORPH NOT INDICATED [facility] ID Date Data Source [id number] 05/06/2021 11:14:00 PM EDT [facility] Name Value Range Interpretation Code Description Data Noemi rce(s) Supporting Document(s) HCG SERUM QUAL NEGATIVE NORMAL: NEGATIVE [facility] HCG SERUM QL REENTER NEGATIVE NORMAL: NEGATIVE [id number] ){ KIT EXP DATE 08-06-22 ){ PROCEDURAL CONTROL VALID ) ID Date Data Source [id number] 08/05/2020 07:13:00 PM EST [facility] Name Value Range Interpretation Code Description Data Noemi rce(s) Supporting Document(s) SARS coronavirus 2 RNA [Presence] in Res piratory specimen by XAVIER with probe detection NEGATIVE [facility] This lab was ordered by [facility] a nd reported by [facility]. ID Date Data Source [id number] 03/21/2020 10:40:00 PM EDT [facility] Name Value Range Interpretation Code Description Data Noemi rce(s) Supporting Document(s) HCT 44.6 % 36.0-47.0 [facility] HGB 14.9 g/dL 12.0-15.5 [facility] MCH 33.4 G/DL pg 32.0-36.5 N [facility] MCHC 27.8 PG % 27.0-33.0 [facility] PLATELETS 360 10 10*3/mm3 150-450 [facility] RBC 5.36 10 10*6/mm3 4.00-5.40 [facility] RDW 12.5 % 11.5-14.5 [facility] WBC TOTAL 10.6 4.0-10.0 H [facility] ID Date Data Source [id number] 03/21/2020 10:40:00 PM EDT [facility] Name Value Range Interpretation Code Description Data Noemi rce(s) Supporting Document(s) BG FASTING 105 mg/dL 70-100 H [facility] Procedure Social History No Information Vital Signs ID Date Data Source UNK Name Value Range Interpretation Code Description Data Source(s) Body temperature 97.8 [degF] 97.8 [degF] [facility] ([facility]) Body height 65 [in_i] 65 [in_i] [facility] ([facility]) 5'5" Body weight 209.00 [lb_av] 209.00 [lb_av] MEDEN T ([facility]) Body mass index (BMI) [Ratio] 34.8 kg/m2 34.8 k g/m2 [facility] Diastolic blood pressure 81 mm[Hg] 81 mm[Hg] [facility] ([facility]) Body height 65 [in_i] 65 [in_i] [facility] ([facility]) Body mass index (BMI) [Ratio] 34.5 kg/m2 34.5 k g/m2 [facility] ([facility]) Systolic blood pressure 124 mm[Hg] 124 mm[Hg] A [facility] ([facility]) Body weight 3314 [oz_av] 3314 [oz_av] [facility] ([facility]) Diastolic blood pressure 81 mm[Hg] 81 mm[Hg] [facility] ([facility]) Body height 65 [in_i] 65 [in_i] [facility] ([facility]) Body mass index (BMI) [Ratio] 34.5 kg/m2 34.5 k g/m2 [facility] ([facility]) Systolic blood pressure 124 mm[Hg] 124 mm[Hg] A [facility] ([facility]) Body weight 3314 [oz_av] 3314 [oz_av] [facility] ([facility])
[2021-05-08] MEDS: NS 1,000 ML IV SCH (22:46)
[2021-05-08] MEDS ORDERED: KEPP1TAB PO (22:50)
[2021-05-08] MEDS ORDERED: HOME MED LIST COMPLETE! XX SCH (22:50)
[2021-05-08] MEDS ORDERED: HYDR-643 PO (22:50)
[2021-05-08 23:18] LABS: MONO REFLEX EBV COMP NEGATIVE (NEGATIVE)
--- NOTE | 2021-05-08 23:50 | REPVR ---
PROCEDURE INFORMATION: Exam: CT Neck With Contrast Exam date and time: 05/08/2021 9:39 PM Age: 20 years old Clinical indication: Painful swallowing; Additional info: Tonsillitis TECHNIQUE: Imaging protocol: Computed tomography images of the neck with contrast. Radiation optimization: All CT scans at this facility use at least one of these dose optimization techniques: automated exposure control; mA and/or kV adjustment per patient size (includes targeted exams where dose is matched to clinical indication); or iterative reconstruction. Contrast material: ISO; Contrast volume: 75 ml; Contrast route: INTRAVENOUS (IV); COMPARISON: MRI-Brain without Contrast 08/06/2020 1:09 PM FINDINGS: Nasopharynx: Mild prominence of the adenoids. Oropharynx: Slight symmetric enlargement of the tonsils with no abscess. Hypopharynx: Unremarkable. Larynx: Unremarkable. Normal epiglottis. Retropharyngeal space: Unremarkable. Submandibular/Parotid glands: Normal. Glands are normal in size. Thyroid: Normal. No enlarged or calcified nodules. Lymph nodes: Unremarkable. No lymphadenopathy. Trachea: Visualized trachea is unremarkable. Lungs: Unremarkable as visualized. Bones/joints: Unremarkable. No acute fracture. Vasculature: The left vertebral artery originates directly from the arch. Soft tissues: Unremarkable. No significant soft tissue swelling. IMPRESSION: 1. Mild prominence of the adenoids and slight symmetric prominence of the tonsils with no abscess. 2. Otherwise negative CT soft tissue neck. Electronically signed by: Geovani Francis On 05/08/2021 23:49:44 PM
[2021-05-09 01:07] VITALS: BP 141/72
[2021-05-09] MEDS: ACETAMINOPHEN TAB 650MG DOSE (2X325MG) PO PRN ×4 (01:09→21:16)
[2021-05-09] MEDS: hydrOXYzine 10 MG TAB PO PRN ×2 (01:50→21:15)
[2021-05-09] MEDS: levETIRAcetam 250MG TABLET (KEPPRA) PO SCH ×3 (01:50→21:15)
[2021-05-09] MEDS: HEPARIN SOD (PORCINE) 5000UNITS/ML 1ML VIAL/SYRINGE SC SCH ×2 (06:00→06:11)
[2021-05-09] MEDS ORDERED: AMPICILLIN SOD/SULBACTAM SOD 3 GM in D5W MINI-BAG PLUS 100 ML IV SCH (06:00)
[2021-05-09] MEDS: AMPICILLIN SOD/SULBACTAM SOD 3 GM in D5W MINI-BAG PLUS 100 ML IV SCH ×4 (06:11→23:57)
[2021-05-09 08:00] VITALS: BP 108/58
[2021-05-09 08:09] LABS: HEMATOCRIT 33.2 % (36.0-47.0); HEMOGLOBIN 11.2 g/dl (12.0-15.5); MEAN CORPUSCULAR HEMOGLOBIN 28.1 pg (27.0-33.0); MEAN CORPUSCULAR HGB CONC 33.7 g/dl (32.0-36.5); MEAN CORPUSCULAR VOLUME 83.2 fl (80.0-96.0); PLATELET COUNT, AUTOMATED 227 10^3/uL (150-450); RED BLOOD COUNT 3.99 10^6/uL (4.00-5.40); WHITE BLOOD COUNT 14.9 10^3/uL (4.0-10.0)
[2021-05-09 08:58] LABS: ALBUMIN 3.1 GM/DL (3.2-5.2); ALT/SGPT 25 U/L (12-78); BILIRUBIN,TOTAL 0.5 MG/DL (0.2-1.0); BLOOD UREA NITROGEN 5 MG/DL (7-18); CALCIUM LEVEL 8.6 MG/DL (8.5-10.1); CARBON DIOXIDE LEVEL 20 MEQ/L (21-32); CHLORIDE LEVEL 108 MEQ/L (98-107); CREATININE FOR GFR 0.52 MG/DL (0.55-1.30); GLUCOSE, FASTING 91 MG/DL (70-100); MAGNESIUM LEVEL 1.9 MG/DL (1.8-2.4); POTASSIUM SERUM 3.5 MEQ/L (3.5-5.1); SODIUM LEVEL 137 MEQ/L (136-145); TOTAL PROTEIN 6.3 GM/DL (6.4-8.2)
[2021-05-09 09:15] VITALS: BP 108/58
[2021-05-09] MEDS ORDERED: IBUPROFEN 600MG TAB PO STA (09:27)
[2021-05-09] MEDS: NS 1,000 ML IV SCH (09:32)
--- NOTE | 2021-05-09 15:26 | IPNPDOC ---
Subjective Date Seen The patient was seen on 05/09/21. Subjective Chief Complaint/HPI Ms. Gastelum is a 20-year-old female with seizures, asthma, anxiety who presents with acute tonsillitis. This morning she denies any chest pain or dyspnea. She has a sore throat and is difficult for her to swallow. I reached out to ENT, . ENT recommends medical management. Continue with IV antibiotics. When patient can swallow food, she can be discharged. Objective Physical Examination General Exam: Positive: Alert, Cooperative Eye Exam: Negative: Sclera icteric ENT Exam: Positive: Other ENT (Large tonsils with exudate) Chest Exam: Positive: Clear to auscultation Heart Exam: Positive: Tachycardic, Regular Rhythm Abdomen Exam: Positive: Normal bowel sounds, Soft; Negative: Tenderness Extremity Exam: Positive: Edema (Mild pitting) Psych Exam: Positive: Anxiety Assessment /Plan Assessment Ms. Gastelum is a 20-year-old female with seizures, asthma, anxiety who presents with acute tonsillitis. I reached out to ENT, . ENT recommends medical management. Continue with IV antibiotics. When patient can swallow food, she can be discharged. Plan/VTE VTE Prophylaxis Ordered?: Yes Plan 1. Acute tonsillitis with exudate Continue Unasyn day 1 [place] screen negative Discussed case with ENT. No respiratory compromise. Recommend medical management. Start patient on clear liquid diet 2. Seizures Continue Keppra 3. Anxiety Continue as needed hydroxyzine 4. DVT prophylaxis Heparin Disposition: Pending ability for solid diet VS, I&O, 24H, Fishbone Vital Signs/I&O Vital Signs Date Time Temp Pulse Resp B/P (MAP) Pulse Ox O2 Delivery O2 Flow Rate FiO2 05/09/21 12:00 16 05/09/21 09:15 103.6 104 108/58 (75) 98 Room Air I&O- Last 24 Hours up to 6 AM 05/09/21 06:00 Intake Total 1600 ml Output Total 0 ml Balance 1600 ml Laboratory Data 24H LABS Laboratory Tests 2 05/08/21 16:57: Immature Granulocyte % (Auto) 0.9, Neutrophils (%) (Auto) 71.2H, Lymphocytes (%) (Auto) 16.8L, Monocytes (%) (Auto) 10.7H, Eosinophils (%) (Auto) 0.1, Basophils (%) (Auto) 0.3, Neutrophils # (Auto) 9.8H, Lymphocytes # (Auto) 2.3, Monocytes # (Auto) 1.5H, Eosinophils # (Auto) 0.0, Basophils # (Auto) 0.0, Nucleated Red Blood Cells % (auto) 0.0, Prothrombin Time 14.1H, Prothromb Time International Ratio 1.05, Activated Partial Thromboplast Time 39.4H, Anion Gap 2L, Calcium Level 9.1, Total Bilirubin 0.4, Direct Bilirubin < 0.1, Aspartate Amino Transf (AST/SGOT) 55H, Alanine Aminotransferase (ALT/SGPT) 35, Alkaline Phosphatase 97, Total Protein 7.3, Albumin 3.5, Albumin/Globulin Ratio 0.9L, Lipase 47L, Thyroid Stimulating Hormone (TSH) 0.586, Human Chorionic Gonadotropin, Qual NEGATIVE, Salicylates Level < 1.7L, Acetaminophen Level < 2.0L, Ethyl Alcohol Level < 0.003 05/08/21 20:01: Urine Opiates Screen NEGATIVE, Urine Methadone Screen NEGATIVE, Urine Barbiturates Screen NEGATIVE, Urine Phencyclidine Screen NEGATIVE, Urine Amphet amines Screen NEGATIVE, Urine Benzodiazepines Screen NEGATIVE, Urine Cocaine Metabolite Screen NEGATIVE, Urine Cannabinoids Screen NEGATIVE 05/08/21 22:17: Monoscreen NEGATIVE 05/09/21 07:23: Nucleated Red Blood Cells % (auto) 0.0, Anion Gap 9, Calcium Level 8.6, Total Bilirubin 0.5, Aspartate Amino Transf (AST/SGOT) 16, Alanine Aminotransferase (ALT/SGPT) 25, Alkaline Phosphatase 87, Total Protein 6.3L, Albumin 3.1L, Albumin/Globulin Ratio 1.0L, Magnesium Level 1.9 CBC/BMP Laboratory Tests 05/08/21 16:57 05/09/21 07:23 Microbiology Microbiology 05/08/21 Group A Streptococcus Screen ([facility]IA) - Final, Complete 05/08/21 Respiratory Virus Panel (PCR) ([facility]IA) - Final, Complete JON AZUL DO May 09, 2021 15:26
[2021-05-09 16:20] VITALS: BP 102/58
[2021-05-09] MEDS: IBUPROFEN 600MG TAB PO PRN ×2 (18:05→23:57)
[2021-05-09 20:00] VITALS: BP 130/74
[2021-05-10] VITALS: BP 108/59
[2021-05-10] MEDS: ACETAMINOPHEN TAB 650MG DOSE (2X325MG) PO PRN (03:10)
[2021-05-10] MEDS: IBUPROFEN 600MG TAB PO PRN (05:47)
[2021-05-10] MEDS: AMPICILLIN SOD/SULBACTAM SOD 3 GM in D5W MINI-BAG PLUS 100 ML IV SCH (05:48)
[2021-05-10 08:00] VITALS: BP 120/63
[2021-05-10] MEDS: levETIRAcetam 250MG TABLET (KEPPRA) PO SCH (09:04)
[2021-05-10 09:16] LABS: HEMATOCRIT 32.5 % (36.0-47.0); HEMOGLOBIN 10.6 g/dl (12.0-15.5); MEAN CORPUSCULAR HEMOGLOBIN 27.5 pg (27.0-33.0); MEAN CORPUSCULAR HGB CONC 32.6 g/dl (32.0-36.5); MEAN CORPUSCULAR VOLUME 84.4 fl (80.0-96.0); PLATELET COUNT, AUTOMATED 199 10^3/uL (150-450); RED BLOOD COUNT 3.85 10^6/uL (4.00-5.40); WHITE BLOOD COUNT 12.8 10^3/uL (4.0-10.0)
[2021-05-10 09:43] LABS: BLOOD UREA NITROGEN 4 MG/DL (7-18); CALCIUM LEVEL 8.6 MG/DL (8.5-10.1); CARBON DIOXIDE LEVEL 23 MEQ/L (21-32); CHLORIDE LEVEL 112 MEQ/L (98-107); CREATININE FOR GFR 0.49 MG/DL (0.55-1.30); GLUCOSE, FASTING 80 MG/DL (70-100); POTASSIUM SERUM 3.9 MEQ/L (3.5-5.1); SODIUM LEVEL 142 MEQ/L (136-145)
[2021-05-10] MEDS ORDERED: AMOX875T2 PO (09:58)
[2021-05-10] MEDS ORDERED: IBUP-1022 PO (09:58)
[2021-05-10 16:10] LABS: EBV VIRAL CAPSID AG IgM <36.0 U/mL (0.0-35.9)
--- NOTE | 2021-05-10 18:39 | DS.PDOC ---
Discharge Summary General Date of Admission May 08, 2021 at 22:08 Date of Discharge May 10, 2021 Discharge Summary PROCEDURES PERFORMED DURING STAY: None ADMITTING DIAGNOSES: 1. Acute tonsillitis with exudate. 2. Seizures. 3. Anxiety. DISCHARGE DIAGNOSES: 1. Acute tonsillitis with exudate. 2. Seizures. 3. Anxiety. COMPLICATIONS/CHIEF COMPLAINT: Tonsillitis With Exudate. HISTORY OF PRESENT ILLNESS: Copied from admitting attending H&P " 20F PMHx seizures presents for a 3 weeks history of persistent throat pain. Patient endorses that she came to the hospital on April 15 complaining of throat pain and her strep throat swab was negative she had associated headaches that are intermittent and alleviated with Advil. Starting 2 weeks ago she started having decreased appetite to solids and drinks she's been able to eat food only if cut into small pieces and drinking through a straw. She's been having difficulty sleeping but no trouble breathing. Today she reports a fever but hasn't felt febrile before at home although she is reported chills. She denies having sick contacts. Patient endorses she's had step throat 18 times in the past. Of note patient reports she was in [facility] 2 days ago because of seizure. She tells me she no longer has a PCP. In the ED ENT Dr. Mack was consulted who advised patient to be admitted to the hospital service and started on IV antibiotics and he will evaluate the patient in the morning. Patient denies any difficulty breathing and her difficulty swallowing is due to the pain. She reports that Tylenol did help alleviate some of the throat pain. " HOSPITAL COURSE: I reached out to ENT, Dr. Mack. Recommended medical management. Patient had about 2 days of Unasyn. Today she feels that her throat is better. She is able to tolerate a liquid diet. She felt ready for home and was discharged home today. DISCHARGE MEDICATIONS: Please see below. ALLERGIES: Please see below. PHYSICAL EXAMINATION ON DISCHARGE: VITAL SIGNS: Please see below. GENERAL: Comfortable, in no apparent distress. HEENT: EOMI, sclera clear. NECK: Supple. RESPIRATORY: Lungs clear to auscultation bilaterally, no rales, wheeze or rhonchi. CARDIOVASCULAR: Regular rate and rhythm. ABDOMEN: Soft, nontender, no guarding or rebound tenderness. Normal bowel sounds. MUSCLE SKELETAL: Muscle strength 5/5 in all extremities. NEUROLOGICAL: CN 312 grossly intact, no focal deficits noted. PSYCHOLOGICAL: Normal mood and affect LABORATORY DATA: Please see below. IMAGING: Radiologist interpretation Neck CT with contrast 1. Mild prominence of the adenoids and slight symmetric prominence of the tonsils with no abscess. 2. Otherwise negative CT soft tissue neck. PROGNOSIS: Good ACTIVITY: As tolerated DIET: As tolerated DISCHARGE PLAN: Home DISPOSITION: 01 Home, Self-Care. DISCHARGE INSTRUCTIONS: 1. Follow-up with PCP within 1 week 2. Recommend referral to ENT in 1 to 2 weeks 3. Take antibiotics to completion. Amoxicillin twice daily for 14 days DISCHARGE CONDITION: Stable. Total time spent on discharge planning, discharge summary, and medication reconciliation: 45 minutes Vital Signs/I&Os Vital Signs Date Time Temp Pulse Resp B/P (MAP) Pulse Ox O2 Delivery O2 Flow Rate FiO2 05/10/21 08:00 98.8 79 16 120/63 (82) 99 Room Air I&O- Last 24 Hours up to 6 AM 05/10/21 06:00 Intake Total 2560 ml Output Total 1650 ml Balance 910 ml Laboratory Data Labs 24H Laboratory Tests 2 05/10/21 09:01: Nucleated Red Blood Cells % (auto) 0.0, Anion Gap 7L, Calcium Level 8.6 CBC/BMP Laboratory Tests 05/10/21 09:01 Microbiology Microbiology 05/08/21 Group A Streptococcus Screen (THALIA) - Final, Complete 05/08/21 Respiratory Virus Panel (PCR) ([facility]ALIA) - Final, Complete Discharge Medications Scheduled Amoxicillin/Potassium Clav (Amox-Clav 875-125 mg Tablet) 1 Each Tablet, 1 TAB PO BID Levetiracetam (Keppra) 500 Mg Tablet, 500 MG PO BID, (Reported) Scheduled PRN Hydroxyzine HCl (Hydroxyzine HCl) 10 Mg Tablet, 10 MG PO TID PRN for ANXIETY, (Reported) Ibuprofen (Ibuprofen) 600 Mg Tablet, 600 MG PO Q6HP PRN for MODERATE PAIN (PS 5- 7)/fever Allergies Coded Allergies: Peanut (Verified Allergy, Severe, 04/03/21) [place] (Verified Allergy, Unknown, 04/03/21) strawberry (Verified Allergy, Unknown, 04/03/21) JON AZUL DO May 10, 2021 18:39
== END 2021-05-10 10:41 | disposition home or self-care (01) | DRG 113 ==
LOC: M ED 16:41 → M ED INP 22:08 → ENRESERV 23:04 → M PED 05-09 00:58
PROVIDERS: ADMIT Family Medicine; ATTEND Internal Medicine
DX: J03.90 Acute tonsillitis, unspecified (principal); R56.9 Unspecified convulsions; J45.909 Unspecified asthma, uncomplicated; F41.9 Anxiety disorder, unspecified; Z79.899 Other long term (current) drug therapy; Z91.010 Allergy to peanuts; Z91.018 Allergy to other foods

== ENCOUNTER 2021-06-10 22:54 | Emergency (ER) | payer OTHER ==
[~2021-06-10] VITALS: Ht 165.1 cm; Wt 95.0 kg
[~2021-06-10 22:54] MED LIST changes: +AMOX875T2 PO; +IBUP-1022 PO; +KEPP1TAB PO
--- OUTSIDE RECORDS SUMMARY | 2021-06-10 22:59 | CCD ---
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 [Mass/volume] in Serum or Plasma 0.6 MG/DL 0.7 - 1.5 L [facility] BUN/CREAT 15 8 - 27 [facility] Protein [Mass/volume] in Serum or Plasma 7.7 G/DL 6.3 - 8.2 [facility] Albumin [Mass/volume] in Serum or Plasma 5.1 G/DL 3.9 - 5.0 H [facility] Globulin [Mass/volume] in Serum by calculation 2.6 GM/DL 2.4 - 3.2 [facility] A/G RATIO 2.0 0.8 - 2.0 [facility] Calcium [Mass/volume] in Serum or Plasma 10.1 MG/DL 8.4 - 10.2 [facility] Bilirubin.total [Mass/volume] in Serum or Plasma <0.7 MG/DL 0.2 - 1.3 [facility] Alkaline phosphatase [Enzymatic activity/volume] in Serum or Plasma 126 U/L 38 - 126 [facility] Aspartate aminotransferase [Enzymatic activity/volume] in Serum or Plasma 26 U/L 5 - 40 [facility] Alanine aminotransferase [Enzymatic activity/volume] in Seru m or Plasma 29 U/L 7 - 56 [facility] Anion gap 3 in Serum or Plasma 12.0 mmol/L 8.0 - 16.0 [facility] AGE [address] [facility] al NON-AA GFR >60 mL/min [facility] ital AFR AMER GFR >60 mL/min [facility] Male GFR In terprentation 20-49 yrs [...] >32 mL/min Normal ID Date Data Source [id number] 05/06/2021 11:14:00 PM EDT [facility] Name Value Range Interpretation Code Description Data Noemi rce(s) Supporting Document(s) CBC W/AUTOMATED DIFF [facility] COMPLETE BLOOD COUNT Leukocytes [#/volume] in Blood by Automated count 10.3 10^3/uL 4.2 - 11.0 [facility] Erythrocytes [#/volume] in Blood by Automated count 5.07 10^6/uL 4. 20 - 5.40 [facility] Hemoglobin [Mass/volume] in Blood 14.2 g/dL 12.0 - 16.0 [facility] Hematocrit [Volume Fraction] of Blood by Automated count 41.3 % 3 7.0 - 47.0 [facility] Erythrocyte mean corpuscular volume [Entitic volume] by Auto mated count 81.5 fL 81.0 - 101 [facility] Erythrocyte mean corpuscular hemoglobin [Entitic mass] by Automated count 28.0 pg 27.0 - 34.0 [facility] Erythrocyte mean corpuscular hemoglobin concentration [Mass/volume] by Automated count 34.4 g/dL 31.0 - 36.0 [facility] Erythrocyte distribution width [Ratio] by Automated count 11.9 % 11.5 - 14.5 [facility] Platelets [#/volume] in Blood by Automated count 294 10^3/uL 150 - 45 0 [facility] Platelet mean volume [Entitic volume] in Blood by Automated count 9.5 fL 7.4 - 10.4 [facility] Neutrophils/100 leukocytes in Blood by Automated count 74.0 % 37. 0 - 80.0 [facility] Lymphocytes/100 leukocytes in Blood by Manual count 15.8 % 25.0 - 40.0 L [facility] Monocytes/100 leukocytes in Blood by Automated count 9.1 % 3.0 - 8.0 H [facility] Eosinophils/100 leukocytes in Blood by Automated count 0.3 % 0.0 - 7.0 [facility] Basophils/100 leukocytes in Blood by Automated count 0.5 % 0.0 - 2.5 [facility] %IG 0.3 % 0.0 - 0.0 H [facility] %NRBC 0.0 % 0.0 - 0.0 [facility] Neutrophils [#/volume] in Blood by Automated count 7.65 10^3/uL 2.00 - 6.90 H [facility] Lymphocytes [#/volume] in Blood by Automated count 1.63 10^3/uL 0.60 - 3.40 [facility] Monocytes [#/volume] in Blood by Automated count 0.94 10^3/uL 0.00 - 0.90 H [facility] Eosinophils [#/volume] in Blood by Automated count 0.03 10^3/uL 0.00 - 0.70 [facility] Basophils [#/volume] in Blood by Automated count 0.05 10^3/uL 0.00 - 0.20 [facility] #IG 0.03 10^3/uL 0.00 - 0.10 [facility] #NRBC 0.00 10^3/uL 0.00 - 0.00 [facility] MANUAL DIFF NOT INDICATED [facility] RBC MORPH NOT INDICATED [facility] ID Date Data Source [id number] 05/06/2021 11:14:00 PM EDT [facility] Name Value Range Interpretation Code Description Data Noemi rce(s) Supporting Document(s) HCG SERUM QUAL NEGATIVE NORMAL: NEGATIVE [facility] HCG SERUM QL REENTER NEGATIVE NORMAL: NEGATIVE [facility] { KIT LOT # [id number] ){ KIT EXP DATE 08-06-22 ){ PROCEDURAL CONTROL VALID ) ID Date Data Source [id number] 08/05/2020 07:13:00 PM EST [facility] Name Value Range Interpretation Code Description Data Noemi rce(s) Supporting Document(s) SARS coronavirus 2 RNA [Presence] in Res piratory specimen by [facility]AV[facility] with probe detection NEGATIVE [facility] This lab was ordered by [facility] a nd reported by [facility] Procedure Social History No Information Vital Signs ID Date Data Source UNK Name Value Range Interpretation Code Description Data Source(s) Body temperature 97.8 [degF] 97.8 [degF] [facility] ([facility]) Body height 65 [in_i] 65 [in_i] [facility] ([facility]) 5'5" Body weight 209.00 [lb_av] 209.00 [lb_av] [facility] ([facility]) Body mass index (BMI) [Ratio] 34.8 kg/m2 34.8 k g/m2 [facility] ([facility] Diastolic blood pressure 81 mm[Hg] 81 mm[Hg] [facility] ([facility]) Body height 65 [in_i] 65 [in_i] [facility] ([facility]) Body mass index (BMI) [Ratio] 34.5 kg/m2 34.5 k g/m2 [facility] ([facility]) Systolic blood pressure 124 mm[Hg] 124 mm[Hg] A [facility] ([facility]) Body weight 3314 [oz_av] 3314 [oz_av] [facility] ([facility]) Diastolic blood pressure 81 mm[Hg] 81 mm[Hg] [facility] ([facility]) Body height 65 [in_i] 65 [in_i] [facility] ([facility]) Body mass index (BMI) [Ratio] 34.5 kg/m2 34.5 k g/m2 [facility] ([facility]) Systolic blood pressure 124 mm[Hg] 124 mm[Hg] A [facility] ([facility]) Body weight 3314 [oz_av] 3314 [oz_av] [facility] ([facility])
[2021-06-11 00:14] LABS: HEMATOCRIT 39.5 % (36.0-47.0); HEMOGLOBIN 13.3 g/dl (12.0-15.5); MEAN CORPUSCULAR HEMOGLOBIN 28.1 pg (27.0-33.0); MEAN CORPUSCULAR HGB CONC 33.7 g/dl (32.0-36.5); MEAN CORPUSCULAR VOLUME 83.3 fl (80.0-96.0); PLATELET COUNT, AUTOMATED 274 10^3/uL (150-450); RED BLOOD COUNT 4.74 10^6/uL (4.00-5.40); WHITE BLOOD COUNT 7.9 10^3/uL (4.0-10.0)
[2021-06-11 00:24] LABS: ALT/SGPT 60 U/L (12-78); BILIRUBIN,TOTAL 0.3 MG/DL (0.2-1.0); BLOOD UREA NITROGEN 9 MG/DL (7-18); CALCIUM LEVEL 9.4 MG/DL (8.5-10.1); CARBON DIOXIDE LEVEL 25 MEQ/L (21-32); CHLORIDE LEVEL 108 MEQ/L (98-107); CREATININE FOR GFR 0.57 MG/DL (0.55-1.30); GLUCOSE, FASTING 101 MG/DL (70-100); MAGNESIUM LEVEL 1.6 MG/DL (1.8-2.4); SODIUM LEVEL 140 MEQ/L (136-145); TOTAL PROTEIN 7.4 GM/DL (6.4-8.2)
[2021-06-11 00:27] LABS: CK-MB VALUE MASS < 1.0 NG/ML (<3.6); CPK CREATINE PHOSPHOKINASE 62 U/L (26-192); MB/CK RELATIVE INDEX 1.61 (< OR =4)
[2021-06-11 00:33] LABS: HCG, SERUM QUALITATIVE NEGATIVE (NEGATIVE)
[2021-06-11 00:36] LABS: ATYPICAL LYMPH 5 % (0-5); EOSINOPHILS 5 % (0-3); LYMPHOCYTES 47 % (16-44); MONOCYTES 2 % (0-5); NEUTROPHILS 41 % (28-66); PLATELET ESTIMATE NORMAL (NORMAL)
[2021-06-11] MEDS ORDERED: MAG SULF 1GM/100ML (MAG RUN) 1 GM in IV 1 EA IV ONE (00:50)
[2021-06-11] MEDS ORDERED: KEPP1TAB2 PO (01:22)
[2021-06-11] MEDS ORDERED: MAGNESIUM OXIDE 400MG TAB (MAG-OX) PO ONE (01:45)
--- NOTE | 2021-06-11 01:46 | REPVR ---
PROCEDURE INFORMATION: Exam: CT Head Without Contrast Exam date and time: 06/11/2021 12:50 AM Age: 20 years old Clinical indication: Pain; Headache; Additional info: Breakthrough seizure and intermittent nausea TECHNIQUE: Imaging protocol: Computed tomography of the head without contrast. Radiation optimization: All CT scans at this facility use at least one of these dose optimization techniques: automated exposure control; mA and/or kV adjustment per patient size (includes targeted exams where dose is matched to clinical indication); or iterative reconstruction. COMPARISON: MRI-Brain without Contrast 08/06/2020 1:09 PM FINDINGS: Brain: Unremarkable. No hemorrhage or acute infarction. Unremarkable white matter. No midline shift or mass effect. Cerebral ventricles: No ventriculomegaly. Paranasal sinuses: Visualized sinuses are clear. Mastoid air cells: Mastoid air cells are clear. Bones/joints: Unremarkable. No acute fracture. Soft tissues: Unremarkable. IMPRESSION: No acute intracranial abnormality. Electronically signed by: Michi Bourne On 06/11/2021 01:45:35 AM
--- NOTE | 2021-06-11 01:47 | REPVR ---
PROCEDURE INFORMATION: Exam: XR Chest Exam date and time: 06/11/2021 12:59 AM Age: 20 years old Clinical indication: Cough; Additional info: Cough and chest tightness TECHNIQUE: Imaging protocol: XR of the chest. Views: 1 view. COMPARISON: CR PORTABLE CHEST X-RAY 05/08/2021 5:01 PM FINDINGS: Lungs: Clear. No consolidation. Pleural spaces: No pleural effusion. No pneumothorax. Heart/Mediastinum: Unremarkable. No cardiomegaly. Bones/joints: Unremarkable. IMPRESSION: No acute findings. Electronically signed by: Michi Bourne On 06/11/2021 01:46:52 AM
[2021-06-11] MEDS ORDERED: levETIRAcetam INJection 1,500 MG in D5W 100 ML IV ONE (01:55)
--- OUTSIDE RECORDS SUMMARY | 2021-06-11 02:04 | CCD ---
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 in Blood by Automated count 7.65 10^3/uL 2.00 - 6.90 H [facility] Lymphocytes [#/volume] in Blood by Automated count 1.63 10^3/uL 0.60 - 3.40 [facility] Monocytes [#/volume] in Blood by Automated count 0.94 10^3/uL 0.00 - 0.90 H [facility] Eosinophils [#/volume] in Blood by Automated count 0.03 10^3/uL 0.00 - 0.70 [facility] Basophils [#/volume] in Blood by Automated count 0.05 10^3/uL 0.00 - 0.20 [facility] #IG 0.03 10^3/uL 0.00 - 0.10 [facility] H ospital #NRBC 0.00 10^3/uL 0.00 - 0.00 [facility] ospital MANUAL DIFF NOT INDICATED [facility] RBC MORPH NOT INDICATED [facility] ID Date Data Source [id number] 05/06/2021 11:14:00 PM EDT [facility] Name Value Range Interpretation Code Description Data Noemi rce(s) Supporting Document(s) HCG SERUM QUAL NEGATIVE NORMAL: NEGATIVE [facility] HCG SERUM QL REENTER NEGATIVE NORMAL: NEGATIVE [facility] { KIT LOT # [id number] ){ KIT EXP DATE 08-06-22 ){ PROCEDURAL CONTROL VALID ) ID Date Data Source [id number] 08/05/2020 07:13:00 PM EST [facility] Name Value Range Interpretation Code Description Data Noemi rce(s) Supporting Document(s) SARS coronavirus 2 RNA [Presence] in Res piratory specimen by [facility]AV[facility] with probe detection NEGATIVE [facility] This lab was ordered by [facility] a nd reported by [facility]. Procedure Social History No Information Vital Signs ID Date Data Source UNK Name Value Range Interpretation Code Description Data Source(s) Body temperature 97.8 [degF] 97.8 [degF] [facility] ([facility]) Body height 65 [in_i] 65 [in_i] [facility] ([facility]) 5'5" Body weight 209.00 [lb_av] 209.00 [lb_av] MEDEN T ([facility]) Body mass index (BMI) [Ratio] 34.8 kg/m2 34.8 k g/m2 [facility] Diastolic blood pressure 81 mm[Hg] 81 mm[Hg] CECILIA ([facility]) Body height 65 [in_i] 65 [in_i] GOLDSMITH ([facility]) Body mass index (BMI) [Ratio] 34.5 kg/m2 34.5 k g/m2 CECILIA ([facility]) Systolic blood pressure 124 mm[Hg] 124 mm[Hg] A [facility] ([facility]) Body weight 3314 [oz_av] 3314 [oz_av] CECILIA ([facility]) Diastolic blood pressure 81 mm[Hg] 81 mm[Hg] CECILIA ([facility]) Body height 65 [in_i] 65 [in_i] GOLDSMITH ([facility]) Body mass index (BMI) [Ratio] 34.5 kg/m2 34.5 k g/m2 CECILIA ([facility]) Systolic blood pressure 124 mm[Hg] 124 mm[Hg] A THENA ([facility]) Body weight 3314 [oz_av] 3314 [oz_av] CECILIA ([facility])
[2021-06-11 03:15] VITALS: BP 107/58
--- NOTE | 2021-06-13 10:04 | ECGEPIP ---
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
== END 2021-06-11 03:28 | disposition home or self-care (01) ==
LOC: M ED 22:54
DX: G40.909 Epilepsy, unspecified, not intractable, without status epilepticus (principal); E83.42 Hypomagnesemia; U07.1 COVID-19; G43.909 Migraine, unspecified, not intractable, without status migrainosus; Z79.899 Other long term (current) drug therapy; Z91.010 Allergy to peanuts; Z91.018 Allergy to other foods; F17.210 Nicotine dependence, cigarettes, uncomplicated
CPT/HCPCS: 70450; 71045; 80053; 81001; 82550; 82553; 83735; 84703; 85025; 87798; 93005; 96365; 99285; J1953; J3475

== ENCOUNTER 2021-07-16 01:17 | Emergency (ER) | payer OTHER ==
[~2021-07-16] VITALS: Ht 165.1 cm; Wt 88.3 kg
[~2021-07-16 01:17] MED LIST changes: +KEPP1TAB2 PO
[2021-07-16 01:48] LABS: BASO # 0.1 10^3/uL (0.0-0.2); BASO % 0.6 % (0.0-1.0); EOS # 0.4 10^3/uL (0.0-0.5); EOS % 2.8 % (0.0-3.0); HEMATOCRIT 40.1 % (36.0-47.0); HEMOGLOBIN 13.3 g/dl (12.0-15.5); LYMPH # 3.5 10^3/uL (1.5-5.0); LYMPH % 25.4 % (24.0-44.0); MEAN CORPUSCULAR HEMOGLOBIN 27.2 pg (27.0-33.0); MEAN CORPUSCULAR HGB CONC 33.2 g/dl (32.0-36.5); MONO % 7.1 % (2.0-8.0); NEUTROPHILS # 8.9 10^3/uL (1.5-8.5); NEUTROPHILS % 63.8 % (36.0-66.0); PLATELET COUNT, AUTOMATED 346 10^3/uL (150-450); RED BLOOD COUNT 4.89 10^6/uL (4.00-5.40); WHITE BLOOD COUNT 13.9 10^3/uL (4.0-10.0)
[2021-07-16] MEDS ORDERED: levETIRAcetam INJection 1,000 MG in D5W 100 ML IV ONE (01:55)
[2021-07-16 02:10] LABS: BLOOD UREA NITROGEN 14 MG/DL (7-18); CALCIUM LEVEL 9.7 MG/DL (8.5-10.1); CARBON DIOXIDE LEVEL 25 MEQ/L (21-32); CHLORIDE LEVEL 107 MEQ/L (98-107); GLUCOSE, FASTING 91 MG/DL (70-100); MAGNESIUM LEVEL 2.2 MG/DL (1.8-2.4); SODIUM LEVEL 139 MEQ/L (136-145)
[2021-07-16 02:45] VITALS: BP 101/61
[2021-07-16] MEDS ORDERED: KEPP1TAB2 PO (02:48)
[2021-07-16 03:29] LABS: AMPHETAMINES LEVEL URINE NEGATIVE (NEGATIVE); BARBITURATES URINE NEGATIVE (NEGATIVE); BENZODIAZEPINES URINE NEGATIVE (NEGATIVE); CANNABINOIDS URINE NEGATIVE (NEGATIVE); COCAINE METABOLITE URINE NEGATIVE (NEGATIVE); METHADONE URINE NEGATIVE (NEGATIVE); OPIATES URINE NEGATIVE (NEGATIVE); PHENCYCLIDINE URINE NEGATIVE (NEGATIVE)
[2021-07-16 03:29] LABS: ETHYL ALCOHOL (ETHANOL) < 0.003 % (0.000-0.010)
== END 2021-07-16 03:20 | disposition home or self-care (01) ==
LOC: M ED 01:17
DX: G40.909 Epilepsy, unspecified, not intractable, without status epilepticus (principal); R07.89 Other chest pain; F41.9 Anxiety disorder, unspecified; F17.200 Nicotine dependence, unspecified, uncomplicated; Z79.899 Other long term (current) drug therapy; Z91.010 Allergy to peanuts; Z91.018 Allergy to other foods
CPT/HCPCS: 71045; 80048; 80180; 80307; 82077; 82550; 83735; 85025; 93005; 96365; 99284; J1953

== ENCOUNTER 2021-08-14 21:27 | Emergency (ER) | payer OTHER ==
[~2021-08-14] VITALS: Ht 165.1 cm; Wt 95.4 kg
[2021-08-15 01:46] VITALS: BP 114/70
== END 2021-08-15 01:52 | disposition home or self-care (01) ==
LOC: M ED 21:27
DX: S83.92XA Sprain of unspecified site of left knee, initial encounter (principal); M25.532 Pain in left wrist; W19.XXXA Unspecified fall, initial encounter; Y92.009 Unspecified place in unspecified non-institutional (private) residence as the place of occurrence of the external cause; Y93.9 Activity, unspecified; Y99.9 Unspecified external cause status; R56.9 Unspecified convulsions; G43.909 Migraine, unspecified, not intractable, without status migrainosus; Z91.018 Allergy to other foods; Z79.899 Other long term (current) drug therapy

== ENCOUNTER 2021-09-01 00:16 | Emergency (ER) | payer OTHER ==
[~2021-09-01] VITALS: Ht 165.1 cm; Wt 86.3 kg
[2021-09-01 00:20] VITALS: BP 126/74
[2021-09-01] MEDS ORDERED: HALOPERIDOL 5MG/ML VIAL (J1630 PER 1) IV ONE (01:50)
[2021-09-01] MEDS ORDERED: KETOROLAC 30 MG/ML 1ML VIAL IV ONE (01:50)
[2021-09-01] MEDS ORDERED: NS 1,000 ML IV ONE ×2 (01:50)
[2021-09-01 02:42] LABS: HCG, SERUM QUALITATIVE NEGATIVE (NEGATIVE)
== END 2021-09-01 03:19 | disposition home or self-care (01) ==
LOC: M ED 00:16
DX: R51.9 Headache, unspecified (principal); R11.2 Nausea with vomiting, unspecified; R56.9 Unspecified convulsions; F32.A Depression, unspecified; Z91.018 Allergy to other foods; Z79.899 Other long term (current) drug therapy
CPT/HCPCS: 84703; 96361; 96374; 99284; J1630

== ENCOUNTER 2021-09-10 20:11 | Emergency (ER) | payer OTHER ==
[~2021-09-10] VITALS: Ht 165.1 cm; Wt 95.0 kg
[2021-09-10 20:38] VITALS: BP 115/68
[2021-09-10] MEDS ORDERED: NS 1,000 ML IV ONE ×2 (20:45)
[2021-09-10 21:09] LABS: BASO % 0.3 % (0.0-1.0); EOS % 0.3 % (0.0-3.0); HEMOGLOBIN 13.2 g/dl (12.0-15.5); LYMPH # 1.2 10^3/uL (1.5-5.0); LYMPH % 11.7 % (24.0-44.0); MEAN CORPUSCULAR HEMOGLOBIN 27.6 pg (27.0-33.0); MEAN CORPUSCULAR HGB CONC 33.8 g/dl (32.0-36.5); MEAN CORPUSCULAR VOLUME 81.6 fl (80.0-96.0); MONO # 0.7 10^3/uL (0.0-0.8); MONO % 7.1 % (2.0-8.0); NEUTROPHILS # 8.3 10^3/uL (1.5-8.5); NEUTROPHILS % 80.1 % (36.0-66.0); PLATELET COUNT, AUTOMATED 271 10^3/uL (150-450); RED BLOOD COUNT 4.78 10^6/uL (4.00-5.40); WHITE BLOOD COUNT 10.4 10^3/uL (4.0-10.0)
[2021-09-10 21:36] LABS: ALBUMIN 3.8 GM/DL (3.2-5.2); ALT/SGPT 50 U/L (12-78); BILIRUBIN,TOTAL 0.7 MG/DL (0.2-1.0); BLOOD UREA NITROGEN 15 MG/DL (7-18); CALCIUM LEVEL 8.9 MG/DL (8.5-10.1); CARBON DIOXIDE LEVEL 26 MEQ/L (21-32); CHLORIDE LEVEL 107 MEQ/L (98-107); GLOMERULAR FILTRATION RATE > 60.0 (>60); GLUCOSE, FASTING 95 MG/DL (70-100); LIPASE 54 U/L (73-393); POTASSIUM SERUM 3.6 MEQ/L (3.5-5.1); SODIUM LEVEL 139 MEQ/L (136-145); TOTAL PROTEIN 7.2 GM/DL (6.4-8.2)
[2021-09-10 21:40] LABS: HCG, SERUM QUALITATIVE NEGATIVE (NEGATIVE)
[2021-09-10] MEDS ORDERED: ONDA4TAB6 PO (23:25)
[2021-09-10] MEDS ORDERED: ONDANSETRON 4 MG ORAL DISINTEGRATING TAB PO ONE (23:30)
== END 2021-09-10 23:59 | disposition home or self-care (01) ==
LOC: M ED 20:11
DX: K52.9 Noninfective gastroenteritis and colitis, unspecified (principal); Z79.899 Other long term (current) drug therapy
CPT/HCPCS: 80053; 83690; 84703; 85025; 96360; 96361; 99284; Q0162

== ENCOUNTER 2021-09-24 21:13 | Emergency (ER) | payer OTHER ==
[~2021-09-24] VITALS: Ht 165.1 cm; Wt 95.0 kg
[~2021-09-24 21:13] MED LIST changes: +ONDA4TAB6 PO
[2021-09-25 03:17] VITALS: BP 122/72
== END 2021-09-25 03:19 | disposition home or self-care (01) ==
LOC: M ED 21:13
DX: S63.502A Unspecified sprain of left wrist, initial encounter (principal); W01.0XXA Fall on same level from slipping, tripping and stumbling without subsequent striking against object, initial encounter; Y92.009 Unspecified place in unspecified non-institutional (private) residence as the place of occurrence of the external cause; Y93.9 Activity, unspecified; Y99.9 Unspecified external cause status; F17.200 Nicotine dependence, unspecified, uncomplicated; Z79.899 Other long term (current) drug therapy

== ENCOUNTER 2021-09-28 00:41 | Emergency (ER) | payer OTHER ==
[~2021-09-28] VITALS: Ht 165.1 cm; Wt 95.0 kg
[2021-09-28] MEDS ORDERED: ACETAMINOPHEN TAB 650MG DOSE (2X325MG) PO ONE (01:55)
[2021-09-28 02:20] LABS: BASO # 0.1 10^3/uL (0.0-0.2); BASO % 0.5 % (0.0-1.0); EOS # 0.3 10^3/uL (0.0-0.5); EOS % 2.5 % (0.0-3.0); LYMPH # 4.6 10^3/uL (1.5-5.0); LYMPH % 35.4 % (24.0-44.0); MEAN CORPUSCULAR HGB CONC 34.2 g/dl (32.0-36.5); MEAN CORPUSCULAR VOLUME 81.7 fl (80.0-96.0); MONO # 0.8 10^3/uL (0.0-0.8); NEUTROPHILS # 7.2 10^3/uL (1.5-8.5); NEUTROPHILS % 55.3 % (36.0-66.0); PLATELET COUNT, AUTOMATED 343 10^3/uL (150-450); RED BLOOD COUNT 4.65 10^6/uL (4.00-5.40); WHITE BLOOD COUNT 13.1 10^3/uL (4.0-10.0)
[2021-09-28 02:42] LABS: CK-MB VALUE MASS < 1.0 NG/ML (<3.6); CPK CREATINE PHOSPHOKINASE 67 U/L (26-192); MB/CK RELATIVE INDEX 1.49 (< OR =4)
[2021-09-28 02:55] LABS: BLOOD UREA NITROGEN 13 MG/DL (7-18); CALCIUM LEVEL 9.1 MG/DL (8.5-10.1); CARBON DIOXIDE LEVEL 29 MEQ/L (21-32); CHLORIDE LEVEL 108 MEQ/L (98-107); CREATININE FOR GFR 0.63 MG/DL (0.55-1.30); ETHYL ALCOHOL (ETHANOL) < 0.003 % (0.000-0.010); GLOMERULAR FILTRATION RATE > 60.0 (>60); GLUCOSE, FASTING 98 MG/DL (70-100); POTASSIUM SERUM 3.9 MEQ/L (3.5-5.1); SODIUM LEVEL 141 MEQ/L (136-145)
[2021-09-28 05:30] VITALS: BP 112/70
== END 2021-09-28 05:39 | disposition home or self-care (01) ==
LOC: M ED 00:41 → EDBD 00:41 → M ED 05:39
DX: R56.9 Unspecified convulsions (principal); G40.909 Epilepsy, unspecified, not intractable, without status epilepticus; F41.9 Anxiety disorder, unspecified; F32.A Depression, unspecified; Z86.69 Personal history of other diseases of the nervous system and sense organs; Z79.899 Other long term (current) drug therapy; Z91.018 Allergy to other foods

== ENCOUNTER 2021-09-30 20:42 | Emergency (ER) | payer OTHER ==
[2021-09-30 20:59] VITALS: BP 115/65
[2021-09-30] MEDS ORDERED: KETOROLAC 30 MG/ML 1ML VIAL IV ONE (22:00)
[2021-09-30 22:20] LABS: BASO # 0.1 10^3/uL (0.0-0.2); BASO % 0.6 % (0.0-1.0); EOS # 0.3 10^3/uL (0.0-0.5); HEMATOCRIT 38.5 % (36.0-47.0); LYMPH # 3.4 10^3/uL (1.5-5.0); MEAN CORPUSCULAR HEMOGLOBIN 27.6 pg (27.0-33.0); MEAN CORPUSCULAR HGB CONC 33.8 g/dl (32.0-36.5); MEAN CORPUSCULAR VOLUME 81.7 fl (80.0-96.0); MONO # 0.8 10^3/uL (0.0-0.8); NEUTROPHILS # 6.7 10^3/uL (1.5-8.5); NEUTROPHILS % 59.1 % (36.0-66.0); PLATELET COUNT, AUTOMATED 332 10^3/uL (150-450); RED BLOOD COUNT 4.71 10^6/uL (4.00-5.40); WHITE BLOOD COUNT 11.3 10^3/uL (4.0-10.0)
[2021-09-30 22:53] LABS: ALT/SGPT 65 U/L (12-78); BILIRUBIN,DIRECT 0.1 MG/DL (0.0-0.2); BILIRUBIN,TOTAL 0.5 MG/DL (0.2-1.0); BLOOD UREA NITROGEN 11 MG/DL (7-18); CALCIUM LEVEL 9.5 MG/DL (8.5-10.1); CARBON DIOXIDE LEVEL 26 MEQ/L (21-32); CHLORIDE LEVEL 110 MEQ/L (98-107); GLOMERULAR FILTRATION RATE > 60.0 (>60); GLUCOSE, FASTING 86 MG/DL (70-100); LIPASE 93 U/L (73-393); POTASSIUM SERUM 4.2 MEQ/L (3.5-5.1); SODIUM LEVEL 139 MEQ/L (136-145); TOTAL PROTEIN 7.4 GM/DL (6.4-8.2)
[2021-10-01] MEDS ORDERED: PYRI1TAB5 PO (01:39)
[2021-10-01] MEDS ORDERED: CEPH500C PO (01:39)
== END 2021-10-01 01:52 | disposition home or self-care (01) ==
LOC: M ED 20:42
DX: N30.00 Acute cystitis without hematuria (principal); M54.50 Low back pain, unspecified; R10.2 Pelvic and perineal pain; Z79.899 Other long term (current) drug therapy
CPT/HCPCS: 76775; 80048; 80076; 81001; 83690; 85025; 96374; 99284; J1885

== ENCOUNTER 2021-11-12 22:13 | Emergency (ER) | payer OTHER, SELFPAY ==
[~2021-11-12] VITALS: Ht 165.1 cm; Wt 87.3 kg
[~2021-11-12 22:13] MED LIST changes: +CEPH500C PO; +PYRI1TAB5 PO
[2021-11-12 23:21] VITALS: BP 114/74
[2021-11-12 23:42] LABS: URINE PREG TEST NEGATIVE (NEGATIVE)
== END 2021-11-13 01:36 | disposition home or self-care (01) ==
LOC: M ED 22:13 → EDBD 22:13 → M ED 11-13 01:36
DX: R10.2 Pelvic and perineal pain (principal); Z32.00 Encounter for pregnancy test, result unknown; Z79.899 Other long term (current) drug therapy; Z91.018 Allergy to other foods

== ENCOUNTER 2021-12-17 22:07 | Emergency (ER) | payer SELFPAY ==
[~2021-12-17] VITALS: Ht 165.1 cm; Wt 82.7 kg
[2021-12-18 04:25] VITALS: BP 114/72
== END 2021-12-18 04:26 | disposition home or self-care (01) ==
LOC: EDBD 22:07 → M ED 22:07
DX: O99.350 Diseases of the nervous system complicating pregnancy, unspecified trimester (principal); R56.9 Unspecified convulsions; Z91.010 Allergy to peanuts; Z91.018 Allergy to other foods; Z79.899 Other long term (current) drug therapy; Z3A.00 Weeks of gestation of pregnancy not specified

== ENCOUNTER 2021-12-30 19:33 | Emergency (ER) | payer OTHER, SELFPAY ==
[~2021-12-30] VITALS: Ht 165.1 cm; Wt 94.5 kg
[2021-12-30] MEDS ORDERED: NS 1,000 ML IV ONE (20:00)
[2021-12-30 22:29] LABS: BLOOD UREA NITROGEN 7 MG/DL (7-18); CALCIUM LEVEL 8.7 MG/DL (8.5-10.1); CARBON DIOXIDE LEVEL 26 MEQ/L (21-32); CHLORIDE LEVEL 108 MEQ/L (98-107); CREATININE FOR GFR 0.53 MG/DL (0.55-1.30); GLOMERULAR FILTRATION RATE > 60.0 (>60); GLUCOSE, FASTING 84 MG/DL (70-100); HCG, SERUM QUANTITATIVE 35214 MIU/ML; POTASSIUM SERUM 4.5 MEQ/L (3.5-5.1); SODIUM LEVEL 139 MEQ/L (136-145)
[2021-12-30] MEDS ORDERED: CEPHALEXIN 500 MG CAP PO ONE (22:50)
[2021-12-30] MEDS ORDERED: CEPH500C PO (22:50)
[2021-12-30 23:46] VITALS: BP 107/57
== END 2021-12-30 23:45 | disposition home or self-care (01) ==
LOC: M ED 19:33 → EDBD 19:33 → M ED 23:45
DX: G40.89 Other seizures (principal); N39.0 Urinary tract infection, site not specified; Z91.010 Allergy to peanuts; Z91.018 Allergy to other foods; Z79.899 Other long term (current) drug therapy; Z3A.01 Less than 8 weeks gestation of pregnancy

== ENCOUNTER 2022-01-17 22:33 | Emergency (ER) | payer SELFPAY ==
[~2022-01-17] VITALS: Ht 165.1 cm; Wt 85.9 kg
[2022-01-17 22:44] VITALS: BP 105/62
== END 2022-01-18 00:16 | disposition left against medical advice (07) ==
LOC: EDBD 22:33 → M ED 22:33
DX: Z53.21 Procedure and treatment not carried out due to patient leaving prior to being seen by health care provider (principal)

== ENCOUNTER 2022-01-25 18:13 | Emergency (ER) | payer MEDICAID, SELFPAY ==
[~2022-01-25] VITALS: Ht 165.1 cm; Wt 99.5 kg
[2022-01-25 18:19] VITALS: BP 119/69
[2022-01-25 21:33] LABS: BASO % 0.3 % (0.0-1.0); EOS # 0.1 10^3/uL (0.0-0.5); EOS % 0.8 % (0.0-3.0); HEMOGLOBIN 12.3 g/dl (12.0-15.5); LYMPH # 3.2 10^3/uL (1.5-5.0); LYMPH % 24.7 % (24.0-44.0); MEAN CORPUSCULAR HEMOGLOBIN 28.2 pg (27.0-33.0); MEAN CORPUSCULAR HGB CONC 34.2 g/dl (32.0-36.5); MEAN CORPUSCULAR VOLUME 82.6 fl (80.0-96.0); MONO # 0.9 10^3/uL (0.0-0.8); MONO % 6.5 % (2.0-8.0); NEUTROPHILS # 8.8 10^3/uL (1.5-8.5); NEUTROPHILS % 67.4 % (36.0-66.0); PLATELET COUNT, AUTOMATED 284 10^3/uL (150-450); RED BLOOD COUNT 4.36 10^6/uL (4.00-5.40); WHITE BLOOD COUNT 13.1 10^3/uL (4.0-10.0)
[2022-01-25 22:22] LABS: BLOOD UREA NITROGEN 5 MG/DL (7-18); CALCIUM LEVEL 9.5 MG/DL (8.5-10.1); CARBON DIOXIDE LEVEL 20 MEQ/L (21-32); CHLORIDE LEVEL 110 MEQ/L (98-107); CREATININE FOR GFR 0.52 MG/DL (0.55-1.30); GLOMERULAR FILTRATION RATE > 60.0 (>60); GLUCOSE, FASTING 78 MG/DL (70-100); HCG, SERUM QUANTITATIVE 88473 MIU/ML; POTASSIUM SERUM 3.4 MEQ/L (3.5-5.1); SODIUM LEVEL 140 MEQ/L (136-145)
== END 2022-01-26 00:22 | disposition left against medical advice (07) ==
LOC: EDBD 18:13 → M ED 18:13
DX: Z53.21 Procedure and treatment not carried out due to patient leaving prior to being seen by health care provider (principal)

== ENCOUNTER 2022-02-24 20:10 | Emergency (ER) | payer MEDICAID ==
[~2022-02-24] VITALS: Ht 165.1 cm; Wt 95.9 kg
[2022-02-24 20:55] LABS: HYALINE CAST, URINE NONE SEEN /lpf (0-1); RBC, URINE TNTC /hpf (0-3); SQUAMOUS EPITHELIAL CELL URINE SMALL AMOUNT /hpf (SMALL AMT); TRICHOMONAS, URINE SMALL AMOUNT
[2022-02-24 20:56] LABS: BACTERIA, URINE SMALL AMOUNT; MUCUS, URINE SMALL AMOUNT (NEGATIVE)
[2022-02-24 21:14] LABS: BASO % 0.3 % (0.0-1.0); EOS # 0.2 10^3/uL (0.0-0.5); EOS % 1.2 % (0.0-3.0); HEMATOCRIT 33.4 % (36.0-47.0); HEMOGLOBIN 11.8 g/dl (12.0-15.5); LYMPH # 2.9 10^3/uL (1.5-5.0); LYMPH % 23.9 % (24.0-44.0); MEAN CORPUSCULAR HEMOGLOBIN 28.9 pg (27.0-33.0); MEAN CORPUSCULAR HGB CONC 35.3 g/dl (32.0-36.5); MEAN CORPUSCULAR VOLUME 81.7 fl (80.0-96.0); MONO # 0.8 10^3/uL (0.0-0.8); MONO % 6.5 % (2.0-8.0); NEUTROPHILS # 8.3 10^3/uL (1.5-8.5); NEUTROPHILS % 67.8 % (36.0-66.0); PLATELET COUNT, AUTOMATED 266 10^3/uL (150-450); RED BLOOD COUNT 4.09 10^6/uL (4.00-5.40); WHITE BLOOD COUNT 12.3 10^3/uL (4.0-10.0)
[2022-02-24 21:40] LABS: BLOOD UREA NITROGEN 4 MG/DL (7-18); CALCIUM LEVEL 9.1 MG/DL (8.5-10.1); CARBON DIOXIDE LEVEL 22 MEQ/L (21-32); CHLORIDE LEVEL 110 MEQ/L (98-107); CREATININE FOR GFR 0.35 MG/DL (0.55-1.30); GLOMERULAR FILTRATION RATE > 60.0 (>60); GLUCOSE, FASTING 101 MG/DL (70-100); POTASSIUM SERUM 3.9 MEQ/L (3.5-5.1); SODIUM LEVEL 139 MEQ/L (136-145)
[2022-02-25] MEDS ORDERED: METR-265 PO (00:26)
[2022-02-25] MEDS ORDERED: metroNIDAZOLE (FLAGYL) 500MG TABLET PO ONE (00:30)
[2022-02-25 00:39] VITALS: BP 136/72
[2022-02-25 00:50] LABS: GC DNA AMPLIFICATION NEGATIVE (NEGATIVE)
== END 2022-02-25 00:45 | disposition home or self-care (01) ==
LOC: M ED 20:10 → EDBD 20:10 → M ED 02-25 00:45
DX: O23.592 Infection of other part of genital tract in pregnancy, second trimester (principal); O26.852 Spotting complicating pregnancy, second trimester; Z3A.15 15 weeks gestation of pregnancy; Z91.010 Allergy to peanuts; Z91.018 Allergy to other foods; Z79.899 Other long term (current) drug therapy

== ENCOUNTER → 2022-02-26 | Outpatient (CLI) | payer MEDICAID, OTHER ==
[~2022-02-26] MED LIST changes: +METR-265 PO
[2022-02-26 15:32] LABS: BASO % 0.3 % (0.0-1.0); EOS # 0.1 10^3/uL (0.0-0.5); EOS % 0.9 % (0.0-3.0); HEMATOCRIT 37.1 % (36.0-47.0); HEMOGLOBIN 12.5 g/dl (12.0-15.5); LYMPH # 2.4 10^3/uL (1.5-5.0); LYMPH % 20.9 % (24.0-44.0); MEAN CORPUSCULAR HGB CONC 33.7 g/dl (32.0-36.5); MONO # 0.8 10^3/uL (0.0-0.8); NEUTROPHILS # 8.1 10^3/uL (1.5-8.5); NEUTROPHILS % 70.6 % (36.0-66.0); PLATELET COUNT, AUTOMATED 282 10^3/uL (150-450); RED BLOOD COUNT 4.47 10^6/uL (4.00-5.40); WHITE BLOOD COUNT 11.5 10^3/uL (4.0-10.0)
[2022-02-26 17:14] LABS: GC DNA AMPLIFICATION NEGATIVE (NEGATIVE)
[2022-02-26 17:41] LABS: HIV 1&2 SCREEN CENTAUR NEGATIVE (NEGATIVE)
== END ==
LOC: M PLALAB 13:46
PROVIDERS: ATTEND Specialist
DX: Z34.01 Encounter for supervision of normal first pregnancy, first trimester (principal)

== ENCOUNTER 2022-03-19 18:29 | Emergency (ER) | payer OTHER ==
[~2022-03-19] VITALS: Ht 165.1 cm; Wt 80.9 kg
[2022-03-19] MEDS ORDERED: ONDA4TAB6 (18:51)
[2022-03-19] MEDS ORDERED: NS 1,000 ML IV ONE (19:20)
[2022-03-19 19:51] LABS: BASO # 0.1 10^3/uL (0.0-0.2); BASO % 0.4 % (0.0-1.0); EOS # 0.1 10^3/uL (0.0-0.5); HEMATOCRIT 33.6 % (36.0-47.0); HEMOGLOBIN 11.3 g/dl (12.0-15.5); LYMPH # 2.1 10^3/uL (1.5-5.0); LYMPH % 16.1 % (24.0-44.0); MEAN CORPUSCULAR HEMOGLOBIN 28.3 pg (27.0-33.0); MEAN CORPUSCULAR HGB CONC 33.6 g/dl (32.0-36.5); MEAN CORPUSCULAR VOLUME 84.2 fl (80.0-96.0); MONO # 0.9 10^3/uL (0.0-0.8); MONO % 6.5 % (2.0-8.0); NEUTROPHILS % 75.2 % (36.0-66.0); PLATELET COUNT, AUTOMATED 258 10^3/uL (150-450); RED BLOOD COUNT 3.99 10^6/uL (4.00-5.40); WHITE BLOOD COUNT 13.3 10^3/uL (4.0-10.0)
[2022-03-19 20:08] LABS: APPEARANCE, URINE MANUAL CLEAR (CLEAR); COLOR, URINE MANUAL YELLOW (YELLOW)
[2022-03-19 20:09] LABS: BILIRUBIN, URINE MANUAL NEGATIVE (NEGATIVE); BLOOD URINE MANUAL NEGATIVE (NEGATIVE); GLUCOSE, URINE (UA) MANUAL NEGATIVE (NEGATIVE); KETONE, URINE MANUAL NEGATIVE (NEGATIVE); LEUKOCYTE ESTERASE, URINE MAN POSITIVE (NEGATIVE); NITRITE, URINE MANUAL NEGATIVE (NEGATIVE); PROTEIN, URINE MANUAL NEGATIVE (NEGATIVE); UROBILINOGEN, URINE MANUAL NORMAL (NORMAL)
[2022-03-19 20:16] LABS: ALBUMIN 3.1 GM/DL (3.2-5.2); ALT/SGPT 15 U/L (12-78); BILIRUBIN,TOTAL 0.2 MG/DL (0.2-1.0); BLOOD UREA NITROGEN 5 MG/DL (7-18); CALCIUM LEVEL 9.4 MG/DL (8.5-10.1); CARBON DIOXIDE LEVEL 24 MEQ/L (21-32); CHLORIDE LEVEL 106 MEQ/L (98-107); GLOMERULAR FILTRATION RATE > 60.0 (>60); GLUCOSE, FASTING 86 MG/DL (70-100); SODIUM LEVEL 136 MEQ/L (136-145); TOTAL PROTEIN 6.6 GM/DL (6.4-8.2)
[2022-03-19 20:29] LABS: BACTERIA, URINE SMALL AMOUNT; RBC, URINE NONE SEEN /hpf (0-3); SQUAMOUS EPITHELIAL CELL URINE LARGE AMOUNT /hpf (SMALL AMT)
[2022-03-19 20:30] LABS: HYALINE CAST, URINE NONE SEEN /lpf (0-1)
[2022-03-19 21:24] LABS: GC DNA AMPLIFICATION NEGATIVE (NEGATIVE)
[2022-03-19] MEDS ORDERED: CEPH500C PO (22:14)
[2022-03-19] MEDS ORDERED: ACYC1TAB PO (22:14)
[2022-03-19] MEDS ORDERED: ACYCLOVIR 200 MG CAPSULE PO ONE (22:20)
[2022-03-19] MEDS ORDERED: CEPHALEXIN 500 MG CAP PO ONE (22:20)
[2022-03-19 22:22] VITALS: BP 120/80
== END 2022-03-19 22:35 | disposition home or self-care (01) ==
LOC: M ED 18:29
DX: O23.42 Unspecified infection of urinary tract in pregnancy, second trimester (principal); Z3A.17 17 weeks gestation of pregnancy; O20.0 Threatened abortion; Z91.010 Allergy to peanuts; Z91.018 Allergy to other foods

== ENCOUNTER 2022-03-31 02:08 | Outpatient (CLI) | payer OTHER ==
[~2022-03-31] VITALS: Ht 165.1 cm; Wt 78.9 kg
[~2022-03-31 02:08] MED LIST changes: +ACYC1TAB PO; +ONDA4TAB6
[2022-03-31 02:18] VITALS: BP 129/71
[2022-03-31] MEDS ORDERED: PREN1TAB11 PO (02:36)
[2022-03-31 05:35] VITALS: BP 116/70
== END 2022-03-31 05:40 | disposition home or self-care (01) ==
LOC: M LDO 02:08
PROVIDERS: ATTEND Obstetrics & Gynecology
DX: O26.893 Other specified pregnancy related conditions, third trimester (principal); R10.2 Pelvic and perineal pain; Z3A.20 20 weeks gestation of pregnancy

== ENCOUNTER → 2022-04-15 | Outpatient (CLI) | payer OTHER ==
[~2022-04-15] MED LIST changes: +PREN1TAB11 PO
== END ==
LOC: M WHC 12:53
PROVIDERS: ATTEND Specialist
DX: Z34.01 Encounter for supervision of normal first pregnancy, first trimester (principal)

== ENCOUNTER 2022-04-21 22:43 | Emergency (ER) | payer OTHER ==
[2022-04-21] MEDS ORDERED: HYDR-3363 (23:01)
[2022-04-21 23:05] LABS: BASO # 0.1 10^3/uL (0.0-0.2); BASO % 0.3 % (0.0-1.0); EOS # 0.1 10^3/uL (0.0-0.5); EOS % 0.9 % (0.0-3.0); HEMATOCRIT 32.1 % (36.0-47.0); HEMOGLOBIN 10.7 g/dl (12.0-15.5); LYMPH # 2.9 10^3/uL (1.5-5.0); LYMPH % 18.7 % (24.0-44.0); MEAN CORPUSCULAR HEMOGLOBIN 28.5 pg (27.0-33.0); MEAN CORPUSCULAR HGB CONC 33.3 g/dl (32.0-36.5); MEAN CORPUSCULAR VOLUME 85.6 fl (80.0-96.0); MONO # 1.3 10^3/uL (0.0-0.8); MONO % 8.4 % (2.0-8.0); NEUTROPHILS # 10.8 10^3/uL (1.5-8.5); NEUTROPHILS % 70.3 % (36.0-66.0); PLATELET COUNT, AUTOMATED 249 10^3/uL (150-450); RED BLOOD COUNT 3.75 10^6/uL (4.00-5.40); WHITE BLOOD COUNT 15.3 10^3/uL (4.0-10.0)
[2022-04-21 23:06] VITALS: BP 148/90
[2022-04-21 23:18] LABS: PARTIAL THROMBOPLASTIN TIME 27.8 SECONDS (24.8-34.2); PROTHROMBIN TIME 13.4 SECONDS (12.5-14.5)
[2022-04-21 23:39] LABS: ALBUMIN 3.1 GM/DL (3.2-5.2); ALT/SGPT 19 U/L (12-78); BILIRUBIN,DIRECT < 0.1 MG/DL (0.0-0.2); BILIRUBIN,TOTAL 0.3 MG/DL (0.2-1.0); BLOOD UREA NITROGEN 4 MG/DL (7-18); CARBON DIOXIDE LEVEL 22 MEQ/L (21-32); CHLORIDE LEVEL 110 MEQ/L (98-107); CREATININE FOR GFR 0.42 MG/DL (0.55-1.30); GLOMERULAR FILTRATION RATE > 60.0 (>60); GLUCOSE, FASTING 59 MG/DL (70-100); MAGNESIUM LEVEL 1.8 MG/DL (1.8-2.4); POTASSIUM SERUM 3.8 MEQ/L (3.5-5.1); SODIUM LEVEL 139 MEQ/L (136-145); TOTAL PROTEIN 6.3 GM/DL (6.4-8.2); URIC ACID 3.4 MG/DL (2.6-6.0)
[2022-04-22] MEDS ORDERED: levETIRAcetam INJection 750 MG in D5W 100 ML IV ONE (00:25)
[2022-04-22] MEDS ORDERED: FOLI1TAB11 PO (00:27)
[2022-04-22] MEDS ORDERED: KEPP1TAB2 PO (00:27)
[2022-04-22 00:36] LABS: APPEARANCE, URINE MANUAL CLEAR (CLEAR); BILIRUBIN, URINE MANUAL NEGATIVE (NEGATIVE); BLOOD URINE MANUAL NEGATIVE (NEGATIVE); COLOR, URINE MANUAL YELLOW (YELLOW); GLUCOSE, URINE (UA) MANUAL NEGATIVE (NEGATIVE); KETONE, URINE MANUAL NEGATIVE (NEGATIVE); LEUKOCYTE ESTERASE, URINE MAN POSITIVE (NEGATIVE); NITRITE, URINE MANUAL NEGATIVE (NEGATIVE); PROTEIN, URINE MANUAL NEGATIVE (NEGATIVE); UROBILINOGEN, URINE MANUAL NORMAL (NORMAL)
[2022-04-22 01:00] LABS: RBC, URINE 0-1 /hpf (0-3); SQUAMOUS EPITHELIAL CELL URINE MOD AMOUNT /hpf (SMALL AMT)
[2022-04-22 01:01] LABS: BACTERIA, URINE MOD AMOUNT; HYALINE CAST, URINE NONE SEEN /lpf (0-1)
[2022-04-22 01:19] LABS: CREATININE,RANDOM URINE 41.9 MG/DL; TOTAL PROTEIN,RANDOM URINE 11.2 MG/DL (0.0-12.0)
== END 2022-04-22 02:14 | disposition home or self-care (01) ==
LOC: M ED 22:43
DX: O99.352 Diseases of the nervous system complicating pregnancy, second trimester (principal); R56.9 Unspecified convulsions; N96 Recurrent pregnancy loss; Z91.010 Allergy to peanuts; Z91.018 Allergy to other foods; Z79.899 Other long term (current) drug therapy; Z3A.00 Weeks of gestation of pregnancy not specified
CPT/HCPCS: 80048; 80076; 81000; 82570; 83735; 84156; 84550; 85025; 85384; 85610; 85730; 86850; 86900; 86901; 87086; 93005; 93041; 94760; 96365; 99284; J1953

== ENCOUNTER 2022-05-09 22:30 | Outpatient (CLI) | payer OTHER ==
[~2022-05-09 22:30] MED LIST changes: +FOLI1TAB11 PO; +HYDR-3363
[2022-05-09 22:49] VITALS: BP 120/73
[2022-05-09] MEDS ORDERED: HOME MED LIST COMPLETE! XX SCH (22:55)
[2022-05-09 23:39] LABS: HEMATOCRIT 32.6 % (36.0-47.0); HEMOGLOBIN 10.9 g/dl (12.0-15.5); MEAN CORPUSCULAR HEMOGLOBIN 29.1 pg (27.0-33.0); MEAN CORPUSCULAR HGB CONC 33.4 g/dl (32.0-36.5); MEAN CORPUSCULAR VOLUME 87.2 fl (80.0-96.0); PLATELET COUNT, AUTOMATED 260 10^3/uL (150-450); RED BLOOD COUNT 3.74 10^6/uL (4.00-5.40); WHITE BLOOD COUNT 16.2 10^3/uL (4.0-10.0)
[2022-05-09 23:50] LABS: INR 0.97; PROTHROMBIN TIME 13.1 SECONDS (12.5-14.5)
== END 2022-05-10 02:35 | disposition home or self-care (01) ==
LOC: M LDO 22:30
PROVIDERS: ATTEND Obstetrics & Gynecology
DX: O26.892 Other specified pregnancy related conditions, second trimester (principal); R25.2 Cramp and spasm; O36.8120 Decreased fetal movements, second trimester, not applicable or unspecified; Y92.9 Unspecified place or not applicable; Y93.9 Activity, unspecified; Y99.9 Unspecified external cause status; Z3A.26 26 weeks gestation of pregnancy

== ENCOUNTER 2022-05-11 20:35 | Outpatient (CLI) | payer OTHER ==
[~2022-05-11] VITALS: Ht 165.1 cm; Wt 87.7 kg
[2022-05-11 20:54] VITALS: BP 120/72
[2022-05-11] MEDS ORDERED: HOME MED LIST COMPLETE! XX SCH (21:00)
[2022-05-11 22:19] VITALS: BP 129/76
[2022-05-12 01:24] VITALS: BP 123/78
== END 2022-05-12 01:31 | disposition home or self-care (01) ==
LOC: M LDO 20:35
PROVIDERS: ATTEND Obstetrics & Gynecology
DX: O26.892 Other specified pregnancy related conditions, second trimester (principal); M54.50 Low back pain, unspecified; Z3A.26 26 weeks gestation of pregnancy; O36.8120 Decreased fetal movements, second trimester, not applicable or unspecified

== ENCOUNTER 2022-05-18 17:08 | Outpatient (CLI) | payer OTHER ==
[~2022-05-18] VITALS: Ht 165.1 cm; Wt 91.8 kg
[2022-05-18 17:29] VITALS: BP 101/56
[2022-05-18] MEDS ORDERED: HOME MED LIST COMPLETE! XX SCH (17:30)
== END 2022-05-18 19:21 | disposition home or self-care (01) ==
LOC: M LDO 17:08
PROVIDERS: ATTEND Obstetrics & Gynecology
DX: O26.892 Other specified pregnancy related conditions, second trimester (principal); R25.2 Cramp and spasm; R10.2 Pelvic and perineal pain; Z3A.27 27 weeks gestation of pregnancy

== ENCOUNTER 2022-05-23 21:48 | Outpatient (CLI) | payer OTHER | END 2022-05-23 23:41 | disposition home or self-care (01) | LOC: M LDO 21:48 | PROVIDERS: ATTEND Obstetrics & Gynecology | DX: O26.893 Other specified pregnancy related conditions, third trimester (principal); Y92.031 Bathroom in apartment as the place of occurrence of the external cause; Y93.9 Activity, unspecified; Y99.9 Unspecified external cause status; Z3A.28 28 weeks gestation of pregnancy ==

== ENCOUNTER 2022-06-14 21:01 | Outpatient (CLI) | payer OTHER ==
[~2022-06-14] VITALS: Ht 165.1 cm; Wt 94.2 kg
[2022-06-14 21:18] VITALS: BP 121/76
[2022-06-14] MEDS ORDERED: HOME MED LIST COMPLETE! XX SCH (21:30)
[2022-06-14 22:31] VITALS: BP 126/70
== END 2022-06-14 22:40 | disposition home or self-care (01) ==
LOC: M LDO 21:01
PROVIDERS: ATTEND Advanced Practice Midwife
DX: O47.03 False labor before 37 completed weeks of gestation, third trimester (principal); Z3A.31 31 weeks gestation of pregnancy

== ENCOUNTER 2022-06-17 04:59 | Outpatient (CLI) | payer OTHER ==
[~2022-06-17] VITALS: Ht 165.1 cm; Wt 95.5 kg
[2022-06-17 05:11] VITALS: BP 128/72
[2022-06-17] MEDS ORDERED: LR 1,000 ML IV SCH (05:25)
[2022-06-17] MEDS ORDERED: LR 1,000 ML IV ONE (05:25)
[2022-06-17] MEDS ORDERED: ONDANSETRON 4MG 2ML VIAL IV ONE ×2 (05:35→09:00)
[2022-06-17] MEDS ORDERED: ONDANSETRON 4MG 2ML VIAL As Ordered ONE (05:36)
[2022-06-17 05:40] VITALS: BP 146/91
[2022-06-17 07:44] VITALS: BP 154/76
[2022-06-17 07:57] VITALS: BP 112/57
[2022-06-17] MEDS ORDERED: HOME MED LIST COMPLETE! XX SCH (09:10)
[2022-06-17] MEDS ORDERED: ONDA-195 PO (10:24)
[2022-06-17 10:40] VITALS: BP 127/74
== END 2022-06-17 11:01 | disposition home or self-care (01) ==
LOC: M LDO 04:59
PROVIDERS: ATTEND Obstetrics & Gynecology
DX: O99.513 Diseases of the respiratory system complicating pregnancy, third trimester (principal); B97.4 Respiratory syncytial virus as the cause of diseases classified elsewhere; O98.313 Other infections with a predominantly sexual mode of transmission complicating pregnancy, third trimester; A60.09 Herpesviral infection of other urogenital tract; A59.9 Trichomoniasis, unspecified; Z3A.31 31 weeks gestation of pregnancy
CPT/HCPCS: 59025; 81000; 87086; 87486; 87581; 87633; 87798; 96360; 96361; 96374; 96376; J2405

== ENCOUNTER 2022-07-10 23:28 | Outpatient (CLI) | payer OTHER ==
[~2022-07-10 23:28] MED LIST changes: +ONDA-195 PO
[2022-07-10 23:34] VITALS: BP 95/68
[2022-07-11 01:18] VITALS: BP 104/64
== END 2022-07-11 01:10 | disposition home or self-care (01) ==
LOC: M LDO 23:28
PROVIDERS: ATTEND Advanced Practice Midwife
DX: O26.893 Other specified pregnancy related conditions, third trimester (principal); N89.8 Other specified noninflammatory disorders of vagina; R25.2 Cramp and spasm; O99.213 Obesity complicating pregnancy, third trimester; E66.9 Obesity, unspecified; O26.43 Herpes gestationis, third trimester; Z3A.34 34 weeks gestation of pregnancy; Z91.010 Allergy to peanuts; Z91.018 Allergy to other foods

== ENCOUNTER → 2022-07-22 | Outpatient (REF) | payer OTHER | LOC: M SFHCWAGY 16:57 | PROVIDERS: ATTEND Obstetrics & Gynecology | DX: Z34.93 Encounter for supervision of normal pregnancy, unspecified, third trimester (principal) ==

== ENCOUNTER 2022-07-28 23:11 | Outpatient (CLI) | payer OTHER ==
[~2022-07-28] VITALS: Ht 165.1 cm; Wt 101.6 kg
[2022-07-28 23:28] VITALS: BP 116/71
[2022-07-28 23:59] VITALS: BP 137/82
[2022-07-29] MEDS ORDERED: VALT500T PO (00:27)
[2022-07-29] MEDS ORDERED: KEPP1TAB2 PO (00:29)
[2022-07-29] MEDS ORDERED: HOME MED LIST COMPLETE! XX SCH (00:30)
== END 2022-07-29 | disposition home or self-care (01) ==
LOC: M LDO 23:11
PROVIDERS: ATTEND Specialist
DX: O26.893 Other specified pregnancy related conditions, third trimester (principal); R10.9 Unspecified abdominal pain; N89.8 Other specified noninflammatory disorders of vagina; Z3A.37 37 weeks gestation of pregnancy

== ENCOUNTER 2022-08-03 00:02 | Outpatient (CLI) | payer OTHER ==
[~2022-08-03] VITALS: Ht 165.1 cm; Wt 102.4 kg
[~2022-08-03 00:02] MED LIST changes: +VALT500T PO
[2022-08-03 00:17] VITALS: BP 115/72
[2022-08-03] MEDS ORDERED: HOME MED LIST COMPLETE! XX SCH (01:20)
== END 2022-08-03 01:07 | disposition home or self-care (01) ==
LOC: M LDO 00:02
PROVIDERS: ATTEND Advanced Practice Midwife
DX: O60.03 Preterm labor without delivery, third trimester (principal); O36.8130 Decreased fetal movements, third trimester, not applicable or unspecified; O26.893 Other specified pregnancy related conditions, third trimester; N89.8 Other specified noninflammatory disorders of vagina; Z3A.38 38 weeks gestation of pregnancy

== ENCOUNTER 2022-08-11 18:20 | Inpatient (IN) | payer OTHER ==
[~2022-08-11] VITALS: Ht 165.1 cm; Wt 103.5 kg
[2022-08-11 18:38] VITALS: BP 124/85
[2022-08-11] MEDS ORDERED: HOME MED LIST COMPLETE! XX SCH (18:40)
[2022-08-11 19:27] LABS: HEMATOCRIT 33.3 % (36.0-47.0); HEMOGLOBIN 10.9 g/dl (12.0-15.5); MEAN CORPUSCULAR HEMOGLOBIN 26.7 pg (27.0-33.0); MEAN CORPUSCULAR HGB CONC 32.7 g/dl (32.0-36.5); MEAN CORPUSCULAR VOLUME 81.4 fl (80.0-96.0); PLATELET COUNT, AUTOMATED 290 10^3/uL (150-450); RED BLOOD COUNT 4.09 10^6/uL (4.00-5.40); WHITE BLOOD COUNT 15.8 10^3/uL (4.0-10.0)
[2022-08-11] MEDS ORDERED: OXYTOCIN DRIP 30 UNITS in IV 1 EA IV PRN (19:55)
[2022-08-11] MEDS ORDERED: LIDOCAINE 1% MDV 20ML VIAL INFIL PRN (19:55)
[2022-08-11 20:14] VITALS: BP 124/81
[2022-08-11] MEDS: miSOPROStol 50MCG 1/2 TABLET SL SCH (20:14)
[2022-08-11 20:45] VITALS: BP 127/77
[2022-08-11 22:12] VITALS: BP 124/62
[2022-08-11 23:41] VITALS: BP 131/69
[2022-08-12] VITALS (34 sets, daily range): BP systolic 105–149; BP diastolic 55–93
[2022-08-12] MEDS: miSOPROStol 50MCG 1/2 TABLET SL SCH ×3 (00:16→09:53)
[2022-08-12] MEDS: CALCIUM CARBONATE 500 MG CHEW U/D PO PRN ×2 (05:27→13:05)
[2022-08-12] MEDS ORDERED: CARBOPROST TROMETHAMINE 250 MCG/ML AMP IM PRN (13:10)
[2022-08-12] MEDS ORDERED: OXYTOCIN DRIP 30 UNITS in IV 1 EA IV SCH (13:10)
[2022-08-12] MEDS ORDERED: METHYLERGONOVINE MALEATE 0.2MG/ML 1ML VIAL IM PRN (13:10)
[2022-08-12] MEDS ORDERED: OXYTOCIN INJ 10UNITS/ML 1ML VIAL IM PRN (13:10)
[2022-08-12] MEDS ORDERED: TRANEXAMIC ACID INJection 1,000 MG in NS 100 ML IV PRN (13:10)
[2022-08-12] MEDS ORDERED: PENICILLIN G POTASSIUM 5 MU IV 5 MU in D5W MINI-BAG PLUS 100 ML IV STA (13:17)
[2022-08-12] MEDS: LR 1,000 ML IV SCH (13:30)
[2022-08-12] MEDS ORDERED: PROMETHAZINE 25MG/ML 1ML VIAL IV ONE ×2 (14:50→22:00)
[2022-08-12] MEDS ORDERED: BUTORPHANOL 2 MG/ML 1ML VIAL IV ONE ×2 (14:50→22:00)
[2022-08-12] MEDS: PEN G POT 3,000,000 UNIT/50 ML 3,000,000 UNIT in IV 1 EA IV SCH ×2 (17:34→21:28)
[2022-08-12] MEDS ORDERED: EPIDURAL/PCA KEYS XX PRN (23:35)
[2022-08-12] MEDS ORDERED: ONDANSETRON 4MG 2ML VIAL IV PRN (23:35)
[2022-08-12] MEDS ORDERED: NALOXONE INJ 0.4MG/1ML VIAL IV PRN (23:35)
[2022-08-12] MEDS ORDERED: LR 500 ML IV PRN (23:35)
[2022-08-12] MEDS ORDERED: diphenhydrAMINE 50MG/ML VIAL IV PRN (23:35)
[2022-08-12] MEDS: FENTANYL/ROPIVACAINE/NACL BAG 100 ML EPIDURAL SCH (23:36)
[2022-08-13] VITALS (34 sets, daily range): BP systolic 104–184; BP diastolic 58–94
[2022-08-13] MEDS: PEN G POT 3,000,000 UNIT/50 ML 3,000,000 UNIT in IV 1 EA IV SCH ×2 (01:40→05:57)
[2022-08-13] MEDS: LR 1,000 ML IV SCH ×2 (01:41→04:25)
[2022-08-13] MEDS: ePHEDrine SULFATE 25 MG/5 ML(5MG/ML) SYRINGE IVP PRN ×3 (03:32→03:37)
[2022-08-13] MEDS: FENTANYL/ROPIVACAINE/NACL BAG 100 ML EPIDURAL SCH (07:56)
[2022-08-13] MEDS ORDERED: MOM 30ML SUSPENSION UDC PO PRN (09:30)
[2022-08-13] MEDS ORDERED: ACETAMINOPHEN TAB 650MG DOSE (2X325MG) PO PRN (09:30)
[2022-08-13] MEDS ORDERED: ANUSOL HC CREAM 30GM TOP PRN (09:30)
[2022-08-13] MEDS ORDERED: RHOGAM 300MCG (1500IU) INJ IM SCH (09:30)
[2022-08-13] MEDS ORDERED: DOCUSATE SODIUM 100MG CAPSULE PO PRN (09:30)
[2022-08-13] MEDS ORDERED: IBUPROFEN 600MG TAB PO PRN (09:30)
[2022-08-13] MEDS: IBUPROFEN 800 MG TAB PO PRN ×2 (12:13→19:33)
[2022-08-13] MEDS: DIBUCAINE 1% OINTMENT 30GM TOP PRN (19:31)
[2022-08-14] MEDS: ACETAMINOPHEN 500 MG TAB PO PRN ×2 (00:06→12:44)
[2022-08-14] MEDS ORDERED: PRENATAL VITAMINS CHEWABLE TABLET PO SCH (09:00)
[2022-08-14] MEDS: DIBUCAINE 1% OINTMENT 30GM TOP PRN (11:07)
[2022-08-14 16:34] VITALS: BP 124/88
[2022-08-15] MEDS ORDERED: MEASLES,MUMPS,RUBELLA VACCINE INJ (MMR-II) SC.IMMUN ONE (09:00)
== END 2022-08-14 18:56 | disposition home or self-care (01) | DRG 560 ==
LOC: M LDI 18:20 → M OBS 08-13 11:23
PROVIDERS: ADMIT Specialist; ATTEND Advanced Practice Midwife
PROC: 3E0P7GC Introduction of Other Therapeutic Substance into Female Reproductive, Via Natural or Artificial Opening (ICD-10-PCS; 2022-08-11)
PROC: 10907ZC Drainage of Amniotic Fluid, Therapeutic from Products of Conception, Via Natural or Artificial Opening (ICD-10-PCS; 2022-08-12)
PROC: 10E0XZZ Delivery of Products of Conception, External Approach (ICD-10-PCS; principal; 2022-08-13)
PROC: 0KQM0ZZ Repair Perineum Muscle, Open Approach (ICD-10-PCS; 2022-08-13)
DX: O98.32 Other infections with a predominantly sexual mode of transmission complicating childbirth (principal); O26.23 Pregnancy care for patient with recurrent pregnancy loss, third trimester; O99.344 Other mental disorders complicating childbirth; A60.09 Herpesviral infection of other urogenital tract; F41.9 Anxiety disorder, unspecified; F32.A Depression, unspecified; Z91.010 Allergy to peanuts; Z91.018 Allergy to other foods; Z79.899 Other long term (current) drug therapy; O70.1 Second degree perineal laceration during delivery; Z37.0 Single live birth

== ENCOUNTER 2022-10-12 21:46 | Emergency (ER) | payer OTHER ==
[~2022-10-12] VITALS: Ht 165.1 cm; Wt 99.1 kg
[2022-10-12 21:54] VITALS: BP 118/64
[2022-10-12] MEDS ORDERED: NS 1,000 ML IV ONE (22:10)
[2022-10-12 22:22] LABS: BASO # 0.1 10^3/uL (0.0-0.2); BASO % 0.7 % (0.0-1.0); EOS # 0.4 10^3/uL (0.0-0.5); EOS % 3.2 % (0.0-3.0); HEMATOCRIT 40.6 % (36.0-47.0); HEMOGLOBIN 12.9 g/dl (12.0-15.5); LYMPH % 34.1 % (24.0-44.0); MEAN CORPUSCULAR HEMOGLOBIN 25.2 pg (27.0-33.0); MEAN CORPUSCULAR HGB CONC 31.8 g/dl (32.0-36.5); MEAN CORPUSCULAR VOLUME 79.3 fl (80.0-96.0); MONO # 0.9 10^3/uL (0.0-0.8); MONO % 8.1 % (2.0-8.0); NEUTROPHILS # 6.3 10^3/uL (1.5-8.5); NEUTROPHILS % 53.6 % (36.0-66.0); PLATELET COUNT, AUTOMATED 341 10^3/uL (150-450); RED BLOOD COUNT 5.12 10^6/uL (4.00-5.40); WHITE BLOOD COUNT 11.7 10^3/uL (4.0-10.0)
[2022-10-12 23:02] LABS: ETHYL ALCOHOL (ETHANOL) 0.005 % (0.000-0.010)
[2022-10-12 23:05] LABS: ALBUMIN 3.8 G/DL (3.2-5.2); ALKALINE PHOSPHATASE 135 U/L (46-116); ALT/SGPT 114 U/L (7.0-40); AST/SGOT 73 U/L (<34); BILIRUBIN,DIRECT 0.1 MG/DL (<0.4); BILIRUBIN,TOTAL 0.4 MG/DL (0.3-1.2); BLOOD UREA NITROGEN 14 MG/DL (9-23); CALCIUM LEVEL 9.4 MG/DL (8.5-10.1); CARBON DIOXIDE LEVEL 24 MMOL/L (20-31); CHLORIDE LEVEL 109 MMOL/L (98-107); CREATININE FOR GFR 0.64 MG/DL (0.55-1.30); GLOMERULAR FILTRATION RATE > 60.0 (>60); GLUCOSE, FASTING 97 MG/DL (60-100); MAGNESIUM LEVEL 1.7 MG/DL (1.8-2.4); PHOSPHORUS LEVEL 3.9 MG/DL (2.5-4.9); POTASSIUM SERUM 4.3 MMOL/L (3.5-5.1); SODIUM LEVEL 141 MMOL/L (136-145); TOTAL PROTEIN 6.8 G/DL (5.7-8.2)
[2022-10-12] MEDS ORDERED: KETOROLAC 30 MG/ML 1ML VIAL IV ONE (23:10)
[2022-10-12] MEDS ORDERED: METOCLOPRAMIDE INJ 10MG/2ML VIAL IV ONE (23:10)
[2022-10-12 23:38] LABS: PROLACTIN 32.29 NG/ML
== END 2022-10-13 00:53 | disposition left against medical advice (07) ==
LOC: EDBD 21:46 → M ED 21:46
DX: R56.9 Unspecified convulsions (principal); R74.01 Elevation of levels of liver transaminase levels; Z53.9 Procedure and treatment not carried out, unspecified reason; Z91.148 Patient's other noncompliance with medication regimen for other reason; G43.909 Migraine, unspecified, not intractable, without status migrainosus; R19.7 Diarrhea, unspecified; Z91.018 Allergy to other foods; Z79.899 Other long term (current) drug therapy
CPT/HCPCS: 70450; 76705; 80048; 80076; 82077; 82140; 82330; 83605; 83735; 84100; 84146; 85025; 87486; 87581; 87633; 87798; 93041; 94760; 96361; 96374; 96375; 99284; J1885; J2765

== ENCOUNTER 2022-12-14 21:58 | Emergency (ER) | payer OTHER ==
[~2022-12-14] VITALS: Ht 165.1 cm; Wt 94.5 kg
[2022-12-15 04:41] VITALS: BP 131/75; TEMP 97; O2SAT 97
== END 2022-12-15 04:43 | disposition home or self-care (01) ==
LOC: M ED 21:58 → EDBD 21:58 → M ED 12-15 04:43
DX: S93.602A Unspecified sprain of left foot, initial encounter (principal); W22.8XXA Striking against or struck by other objects, initial encounter; Y92.009 Unspecified place in unspecified non-institutional (private) residence as the place of occurrence of the external cause; Y93.01 Activity, walking, marching and hiking; Y99.8 Other external cause status; R56.9 Unspecified convulsions; Z91.018 Allergy to other foods; Z91.010 Allergy to peanuts

== ENCOUNTER 2022-12-19 22:30 | Emergency (ER) | payer OTHER ==
[~2022-12-19] VITALS: Ht 165.1 cm; Wt 98.2 kg
[2022-12-20 00:40] LABS: BASO # 0.1 10^3/uL (0.0-0.2); BASO % 0.5 % (0.0-1.0); EOS # 0.3 10^3/uL (0.0-0.5); EOS % 2.2 % (0.0-3.0); HEMATOCRIT 40.1 % (36.0-47.0); HEMOGLOBIN 13.1 g/dl (12.0-15.5); LYMPH # 3.5 10^3/uL (1.5-5.0); LYMPH % 29.1 % (24.0-44.0); MEAN CORPUSCULAR HEMOGLOBIN 25.9 pg (27.0-33.0); MEAN CORPUSCULAR HGB CONC 32.7 g/dl (32.0-36.5); MEAN CORPUSCULAR VOLUME 79.2 fl (80.0-96.0); MONO # 0.9 10^3/uL (0.0-0.8); MONO % 7.1 % (2.0-8.0); NEUTROPHILS # 7.4 10^3/uL (1.5-8.5); NEUTROPHILS % 60.8 % (36.0-66.0); PLATELET COUNT, AUTOMATED 310 10^3/uL (150-450); RED BLOOD COUNT 5.06 10^6/uL (4.00-5.40); WHITE BLOOD COUNT 12.2 10^3/uL (4.0-10.0)
[2022-12-20 01:05] LABS: CK-MB VALUE MASS < 1.0 NG/ML (<3.6)
[2022-12-20 01:06] LABS: CPK CREATINE PHOSPHOKINASE 67 U/L (34-145); MB/CK RELATIVE INDEX 1.49 (< OR =4)
[2022-12-20 01:08] LABS: MONO SCRN NEGATIVE (NEGATIVE)
[2022-12-20 03:42] VITALS: BP 123/81; TEMP 97.6; O2SAT 97
== END 2022-12-20 03:45 | disposition home or self-care (01) ==
LOC: M ED 22:30
DX: J02.9 Acute pharyngitis, unspecified (principal); G43.909 Migraine, unspecified, not intractable, without status migrainosus; B00.2 Herpesviral gingivostomatitis and pharyngotonsillitis; R56.9 Unspecified convulsions; F32.A Depression, unspecified; F41.9 Anxiety disorder, unspecified; Z91.018 Allergy to other foods; Z91.010 Allergy to peanuts

== ENCOUNTER 2023-01-28 21:18 | Emergency (ER) | payer OTHER ==
[~2023-01-28] VITALS: Ht 165.1 cm; Wt 96.4 kg
[~2023-01-28 21:18] MED LIST changes: +DICY-61 PO; -DICY10CA13 PO
[2023-01-28 21:23] VITALS: BP 120/71; TEMP 98.6; O2SAT 97
[2023-01-28 22:29] LABS: BASO # 0.1 10^3/uL (0.0-0.2); BASO % 0.6 % (0.0-1.0); EOS # 0.3 10^3/uL (0.0-0.5); EOS % 2.3 % (0.0-3.0); HEMATOCRIT 39.2 % (36.0-47.0); HEMOGLOBIN 13.2 g/dl (12.0-15.5); LYMPH # 3.2 10^3/uL (1.5-5.0); LYMPH % 28.8 % (24.0-44.0); MEAN CORPUSCULAR HEMOGLOBIN 26.8 pg (27.0-33.0); MEAN CORPUSCULAR HGB CONC 33.7 g/dl (32.0-36.5); MEAN CORPUSCULAR VOLUME 79.7 fl (80.0-96.0); MONO # 0.8 10^3/uL (0.0-0.8); MONO % 7.1 % (2.0-8.0); NEUTROPHILS # 6.7 10^3/uL (1.5-8.5); NEUTROPHILS % 60.8 % (36.0-66.0); PLATELET COUNT, AUTOMATED 330 10^3/uL (150-450); RED BLOOD COUNT 4.92 10^6/uL (4.00-5.40); WHITE BLOOD COUNT 11.1 10^3/uL (4.0-10.0)
[2023-01-28 23:01] LABS: BLOOD UREA NITROGEN 13 MG/DL (9-23); CALCIUM LEVEL 9.4 MG/DL (8.5-10.1); CARBON DIOXIDE LEVEL 21 MMOL/L (20-31); CHLORIDE LEVEL 109 MMOL/L (98-107); CREATININE FOR GFR 0.55 MG/DL (0.55-1.30); GLOMERULAR FILTRATION RATE > 60.0 (>60); GLUCOSE, FASTING 98 MG/DL (60-100); SODIUM LEVEL 142 MMOL/L (136-145)
[2023-01-28 23:05] LABS: HCG, SERUM QUALITATIVE NEGATIVE (NEGATIVE)
== END 2023-01-29 03:08 | disposition left against medical advice (07) ==
LOC: M ED 21:18
DX: Z53.21 Procedure and treatment not carried out due to patient leaving prior to being seen by health care provider (principal)

== ENCOUNTER 2023-02-10 16:28 | Emergency (ER) | payer OTHER ==
[~2023-02-10] VITALS: Ht 165.1 cm; Wt 100.6 kg
[2023-02-10 17:21] LABS: BASO # 0.1 10^3/uL (0.0-0.2); BASO % 0.5 % (0.0-1.0); EOS # 0.3 10^3/uL (0.0-0.5); EOS % 2.5 % (0.0-3.0); HEMATOCRIT 40.2 % (36.0-47.0); HEMOGLOBIN 13.2 g/dl (12.0-15.5); LYMPH # 2.7 10^3/uL (1.5-5.0); LYMPH % 23.8 % (24.0-44.0); MEAN CORPUSCULAR HEMOGLOBIN 26.8 pg (27.0-33.0); MEAN CORPUSCULAR HGB CONC 32.8 g/dl (32.0-36.5); MEAN CORPUSCULAR VOLUME 81.7 fl (80.0-96.0); MONO # 0.8 10^3/uL (0.0-0.8); MONO % 7.3 % (2.0-8.0); NEUTROPHILS # 7.3 10^3/uL (1.5-8.5); NEUTROPHILS % 65.5 % (36.0-66.0); PLATELET COUNT, AUTOMATED 316 10^3/uL (150-450); RED BLOOD COUNT 4.92 10^6/uL (4.00-5.40); WHITE BLOOD COUNT 11.2 10^3/uL (4.0-10.0)
[2023-02-10 17:39] LABS: ALKALINE PHOSPHATASE 124 U/L (46-116); ALT/SGPT 121 U/L (7.0-40); AST/SGOT 54 U/L (<34); BILIRUBIN,DIRECT 0.2 MG/DL (<0.4); BILIRUBIN,TOTAL 0.5 MG/DL (0.3-1.2); BLOOD UREA NITROGEN 7 MG/DL (9-23); CALCIUM LEVEL 9.8 MG/DL (8.5-10.1); CARBON DIOXIDE LEVEL 22 MMOL/L (20-31); CHLORIDE LEVEL 109 MMOL/L (98-107); CREATININE FOR GFR 0.61 MG/DL (0.55-1.30); GLOMERULAR FILTRATION RATE > 60.0 (>60); GLUCOSE, FASTING 105 MG/DL (60-100); PHOSPHORUS LEVEL 3.3 MG/DL (2.5-4.9); POTASSIUM SERUM 4.4 MMOL/L (3.5-5.1); SODIUM LEVEL 139 MMOL/L (136-145); TOTAL PROTEIN 7.1 G/DL (5.7-8.2)
[2023-02-10 18:28] LABS: HCG, SERUM QUALITATIVE NEGATIVE (NEGATIVE)
[2023-02-10 18:55] LABS: AMPHETAMINES LEVEL URINE NEGATIVE (NEGATIVE); BARBITURATES URINE NEGATIVE (NEGATIVE); COCAINE METABOLITE URINE NEGATIVE (NEGATIVE); METHADONE URINE NEGATIVE (NEGATIVE); OPIATES URINE NEGATIVE (NEGATIVE)
[2023-02-10 18:56] LABS: BENZODIAZEPINES URINE NEGATIVE (NEGATIVE); CANNABINOIDS URINE NEGATIVE (NEGATIVE); PHENCYCLIDINE URINE NEGATIVE (NEGATIVE)
[2023-02-10] MEDS ORDERED: KEPP1TAB2 PO (20:48)
[2023-02-10 21:16] VITALS: BP 111/72; TEMP 97.8; O2SAT 99
== END 2023-02-10 21:26 | disposition home or self-care (01) ==
LOC: M ED 16:28
DX: G40.909 Epilepsy, unspecified, not intractable, without status epilepticus (principal); G43.909 Migraine, unspecified, not intractable, without status migrainosus; Z91.018 Allergy to other foods; Z91.010 Allergy to peanuts

== ENCOUNTER 2023-02-14 22:39 | Emergency (ER) | payer OTHER ==
[~2023-02-14] VITALS: Ht 165.1 cm; Wt 121.8 kg
[2023-02-14 22:46] VITALS: BP 123/77; TEMP 98; O2SAT 99
[2023-02-14 23:27] LABS: URINE PREG TEST NEGATIVE (NEGATIVE)
== END 2023-02-15 03:17 | disposition left against medical advice (07) ==
LOC: EDBD 22:39 → M ED 22:39
DX: R10.9 Unspecified abdominal pain (principal); Z53.21 Procedure and treatment not carried out due to patient leaving prior to being seen by health care provider

== ENCOUNTER 2023-05-13 21:56 | Emergency (ER) | payer OTHER ==
[~2023-05-13] VITALS: Ht 165.1 cm; Wt 85.9 kg
[2023-05-13] MEDS ORDERED: HYDR50TA70 PO (22:35)
[2023-05-14] MEDS ORDERED: levETIRAcetam INJection 1,000 MG in D5W 100 ML IV ONE (00:20)
[2023-05-14 01:05] LABS: BASO # 0.1 10^3/uL (0.0-0.2); BASO % 0.6 % (0.0-1.0); EOS # 0.6 10^3/uL (0.0-0.5); EOS % 5.5 % (0.0-3.0); HEMOGLOBIN 12.1 g/dl (12.0-15.5); LYMPH # 4.2 10^3/uL (1.5-5.0); LYMPH % 38.6 % (24.0-44.0); MEAN CORPUSCULAR HEMOGLOBIN 24.2 pg (27.0-33.0); MONO # 0.8 10^3/uL (0.0-0.8); MONO % 7.8 % (2.0-8.0); NEUTROPHILS # 5.1 10^3/uL (1.5-8.5); NEUTROPHILS % 47.2 % (36.0-66.0); PLATELET COUNT, AUTOMATED 349 10^3/uL (150-450); WHITE BLOOD COUNT 10.8 10^3/uL (4.0-10.0)
[2023-05-14 01:15] LABS: APPEARANCE, URINE HAZY (CLEAR); BACTERIA, URINE AUTO NEGATIVE (NEGATIVE); BILIRUBIN, URINE AUTO NEGATIVE (NEGATIVE); BLOOD, URINE BLOOD NEGATIVE (NEGATIVE); COLOR, URINE YELLOW (YELLOW); GLUCOSE, URINE (UA) AUTO NEGATIVE (NEGATIVE); KETONE, URINE AUTO TRACE mg/dL (NEGATIVE); LEUKOCYTE ESTERASE, URINE AUTO 1+ (NEGATIVE); MUCUS, URINE SMALL (NEGATIVE); NITRITE, URINE AUTO NEGATIVE (NEGATIVE); PROTEIN, URINE AUTO NEGATIVE (NEGATIVE); RBC, URINE AUTO 1 /HPF (0-3); SPECIFIC GRAVITY URINE AUTO 1.027 (1.002-1.035); SQUAMOUS EPITHELIAL CELL UR AU 6 /HPF (0-6); UROBILINOGEN, URINE AUTO 0.2 mg/dL (0.0-2.0); WBC, URINE AUTO 12 /HPF (0-3)
[2023-05-14 01:21] LABS: AMPHETAMINES LEVEL URINE NEGATIVE (NEGATIVE); BARBITURATES URINE NEGATIVE (NEGATIVE); BENZODIAZEPINES URINE NEGATIVE (NEGATIVE); COCAINE METABOLITE URINE NEGATIVE (NEGATIVE); METHADONE URINE NEGATIVE (NEGATIVE)
[2023-05-14 01:22] LABS: CANNABINOIDS URINE NEGATIVE (NEGATIVE); OPIATES URINE NEGATIVE (NEGATIVE); PHENCYCLIDINE URINE NEGATIVE (NEGATIVE)
[2023-05-14 01:24] LABS: ETHYL ALCOHOL (ETHANOL) < 0.003 % (0.000-0.010)
[2023-05-14 01:25] LABS: CPK CREATINE PHOSPHOKINASE 57 U/L (34-145)
[2023-05-14 01:26] LABS: ALBUMIN 3.9 G/DL (3.2-5.2); ALKALINE PHOSPHATASE 139 U/L (46-116); ALT/SGPT 99 U/L (7.0-40); AST/SGOT 57 U/L (<34); BILIRUBIN,DIRECT 0.1 MG/DL (<0.4); BILIRUBIN,TOTAL 0.3 MG/DL (0.3-1.2); BLOOD UREA NITROGEN 11 MG/DL (9-23); CALCIUM LEVEL 9.1 MG/DL (8.5-10.1); CARBON DIOXIDE LEVEL 25 MMOL/L (20-31); CHLORIDE LEVEL 108 MMOL/L (98-107); CK-MB VALUE MASS < 1.0 NG/ML (<3.6); CREATININE FOR GFR 0.63 MG/DL (0.55-1.30); GLOMERULAR FILTRATION RATE > 60.0 (>60); GLUCOSE, FASTING 84 MG/DL (60-100); MB/CK RELATIVE INDEX 1.75 (< OR =4); POTASSIUM SERUM 4.1 MMOL/L (3.5-5.1); SODIUM LEVEL 141 MMOL/L (136-145); TOTAL PROTEIN 7.2 G/DL (5.7-8.2)
[2023-05-14] MEDS ORDERED: KETOROLAC 30 MG/ML 1ML VIAL IV ONE (02:05)
[2023-05-14] MEDS ORDERED: NS 1,000 ML IV ONE (02:05)
[2023-05-14] MEDS ORDERED: METOCLOPRAMIDE INJ 10MG/2ML VIAL IV ONE (02:05)
[2023-05-14] MEDS ORDERED: diphenhydrAMINE 50MG/ML VIAL IV ONE (02:05)
[2023-05-14] MEDS ORDERED: ISOVUE-370 76% 100ML VIAL As Ordered ONE (02:06)
[2023-05-14 02:41] VITALS: O2SAT 99
[2023-05-14 02:46] VITALS: BP 133/89; TEMP 98.5
[2023-05-14] MEDS ORDERED: ONDANSETRON 4MG 2ML VIAL IV ONE (02:55)
== END 2023-05-14 03:15 | disposition home or self-care (01) ==
LOC: M ED 21:56
DX: G43.909 Migraine, unspecified, not intractable, without status migrainosus (principal); R56.9 Unspecified convulsions; Z91.010 Allergy to peanuts; Z91.018 Allergy to other foods
CPT/HCPCS: 70450; 71045; 71275; 80047; 80048; 80076; 80180; 80307; 81001; 82077; 82550; 82553; 83605; 83735; 84702; 85025; 87486; 87581; 87633; 87798; 93041; 94760; 96361; 96365; 96366; 96375; 99285; J1200; J1885; J1953; J2765; Q9967

== ENCOUNTER 2023-07-06 00:14 | Emergency (ER) | payer OTHER ==
[~2023-07-06] VITALS: Ht 172.7 cm; Wt 83.6 kg
[~2023-07-06 00:14] MED LIST changes: +HYDR50TA70 PO
[2023-07-06 00:30] VITALS: TEMP 97.8
[2023-07-06 00:46] LABS: BASO # 0.1 10^3/uL (0.0-0.2); BASO % 0.6 % (0.0-1.0); EOS # 0.5 10^3/uL (0.0-0.5); EOS % 3.6 % (0.0-3.0); HEMATOCRIT 38.6 % (36.0-47.0); HEMOGLOBIN 12.4 g/dl (12.0-15.5); LYMPH # 3.7 10^3/uL (1.5-5.0); LYMPH % 29.7 % (24.0-44.0); MEAN CORPUSCULAR HEMOGLOBIN 24.2 pg (27.0-33.0); MEAN CORPUSCULAR HGB CONC 32.1 g/dl (32.0-36.5); MEAN CORPUSCULAR VOLUME 75.2 fl (80.0-96.0); NEUTROPHILS # 7.3 10^3/uL (1.5-8.5); NEUTROPHILS % 57.9 % (36.0-66.0); PLATELET COUNT, AUTOMATED 349 10^3/uL (150-450); RED BLOOD COUNT 5.13 10^6/uL (4.00-5.40); WHITE BLOOD COUNT 12.6 10^3/uL (4.0-10.0)
[2023-07-06 01:16] LABS: HCG, SERUM QUALITATIVE NEGATIVE (NEGATIVE)
[2023-07-06 01:17] LABS: ALKALINE PHOSPHATASE 161 U/L (46-116); ALT/SGPT 127 U/L (7.0-40); AST/SGOT 85 U/L (<34); BILIRUBIN,DIRECT 0.1 MG/DL (<0.4); BILIRUBIN,TOTAL 0.4 MG/DL (0.3-1.2); BLOOD UREA NITROGEN 7 MG/DL (9-23); CALCIUM LEVEL 9.5 MG/DL (8.5-10.1); CARBON DIOXIDE LEVEL 24 MMOL/L (20-31); CHLORIDE LEVEL 111 MMOL/L (98-107); CREATININE FOR GFR 0.55 MG/DL (0.55-1.30); GLOMERULAR FILTRATION RATE > 60.0 (>60); GLUCOSE, FASTING 79 MG/DL (60-100); PHOSPHORUS LEVEL 3.5 MG/DL (2.5-4.9); POTASSIUM SERUM 4.2 MMOL/L (3.5-5.1); SODIUM LEVEL 143 MMOL/L (136-145); TOTAL PROTEIN 7.5 G/DL (5.7-8.2)
[2023-07-06 03:00] VITALS: BP 113/63; O2SAT 96
[2023-07-06 03:34] LABS: APPEARANCE, URINE HAZY (CLEAR); BACTERIA, URINE AUTO 1+ (NEGATIVE); BILIRUBIN, URINE AUTO NEGATIVE (NEGATIVE); BLOOD, URINE BLOOD 1+ (NEGATIVE); COLOR, URINE YELLOW (YELLOW); GLUCOSE, URINE (UA) AUTO NEGATIVE (NEGATIVE); KETONE, URINE AUTO NEGATIVE (NEGATIVE); LEUKOCYTE ESTERASE, URINE AUTO 2+ (NEGATIVE); MUCUS, URINE SMALL (NEGATIVE); NITRITE, URINE AUTO NEGATIVE (NEGATIVE); PROTEIN, URINE AUTO 1+ mg/dL (NEGATIVE); RBC, URINE AUTO 26 /HPF (0-3); SPECIFIC GRAVITY URINE AUTO 1.016 (1.002-1.035); SQUAMOUS EPITHELIAL CELL UR AU 6 /HPF (0-6); WBC, URINE AUTO 82 /HPF (0-3)
[2023-07-07] MEDS ORDERED: KEPP1TAB PO (23:27)
== END 2023-07-06 04:00 | disposition left against medical advice (07) ==
LOC: M ED 00:14
DX: Z53.21 Procedure and treatment not carried out due to patient leaving prior to being seen by health care provider (principal)

== ENCOUNTER 2023-07-07 20:27 | Emergency (ER) | payer OTHER ==
[~2023-07-07] VITALS: Ht 165.1 cm; Wt 94.5 kg
[2023-07-07] MEDS ORDERED: LORazepam 2 MG/ML 1ML VIAL IV PRN (20:45)
[2023-07-07 21:02] LABS: IONIZED CALCIUM 4.6 MG/DL (4.5-5.3)
[2023-07-07 21:05] LABS: BASO % 0.3 % (0.0-1.0); EOS # 0.5 10^3/uL (0.0-0.5); EOS % 3.6 % (0.0-3.0); HEMOGLOBIN 11.7 g/dl (12.0-15.5); LYMPH # 2.5 10^3/uL (1.5-5.0); LYMPH % 17.9 % (24.0-44.0); MEAN CORPUSCULAR HEMOGLOBIN 24.4 pg (27.0-33.0); MEAN CORPUSCULAR HGB CONC 32.5 g/dl (32.0-36.5); MONO % 7.2 % (2.0-8.0); NEUTROPHILS # 9.9 10^3/uL (1.5-8.5); NEUTROPHILS % 70.6 % (36.0-66.0); PLATELET COUNT, AUTOMATED 311 10^3/uL (150-450); WHITE BLOOD COUNT 13.9 10^3/uL (4.0-10.0)
[2023-07-07 21:31] LABS: ALBUMIN 3.8 G/DL (3.2-5.2); ALKALINE PHOSPHATASE 161 U/L (46-116); ALT/SGPT 97 U/L (7.0-40); AST/SGOT 54 U/L (<34); BILIRUBIN,DIRECT 0.2 MG/DL (<0.4); BILIRUBIN,TOTAL 0.5 MG/DL (0.3-1.2); BLOOD UREA NITROGEN 10 MG/DL (9-23); CALCIUM LEVEL 9.1 MG/DL (8.5-10.1); CARBON DIOXIDE LEVEL 23 MMOL/L (20-31); CHLORIDE LEVEL 110 MMOL/L (98-107); CREATININE FOR GFR 0.57 MG/DL (0.55-1.30); GLOMERULAR FILTRATION RATE > 60.0 (>60); GLUCOSE, FASTING 103 MG/DL (60-100); MAGNESIUM LEVEL 1.8 MG/DL (1.8-2.4); PHOSPHORUS LEVEL 2.8 MG/DL (2.5-4.9); POTASSIUM SERUM 3.7 MMOL/L (3.5-5.1); SODIUM LEVEL 141 MMOL/L (136-145); TOTAL PROTEIN 7.1 G/DL (5.7-8.2)
[2023-07-07 21:36] LABS: RSV AMPLIFICATION NEGATIVE (NEGATIVE)
[2023-07-07] MEDS ORDERED: ACETAMINOPHEN 325 MG TAB PO ONE (22:25)
[2023-07-07] MEDS ORDERED: levETIRAcetam INJection 1,000 MG in D5W 100 ML IV ONE (23:20)
[2023-07-07] MEDS ORDERED: KEPP1TAB PO (23:27)
[2023-07-08 00:31] VITALS: BP 108/55; TEMP 97.4; O2SAT 99
== END 2023-07-08 00:46 | disposition home or self-care (01) ==
LOC: EDBD 20:27 → M ED 20:27
DX: G40.909 Epilepsy, unspecified, not intractable, without status epilepticus (principal); F41.9 Anxiety disorder, unspecified; G43.909 Migraine, unspecified, not intractable, without status migrainosus; Z91.018 Allergy to other foods; Z91.010 Allergy to peanuts; Z79.899 Other long term (current) drug therapy
CPT/HCPCS: 70450; 80048; 80076; 82140; 82330; 83605; 83735; 84100; 84702; 85025; 87631; 93041; 94760; 96365; 99285; J1953

== ENCOUNTER → 2023-08-06 | Outpatient (REF) | payer OTHER ==
[2023-08-06 17:31] LABS: BASO # 0.1 10^3/uL (0.0-0.2); BASO % 0.7 % (0.0-1.0); EOS # 0.5 10^3/uL (0.0-0.5); EOS % 5.1 % (0.0-3.0); HEMATOCRIT 36.9 % (36.0-47.0); HEMOGLOBIN 11.8 g/dl (12.0-15.5); LYMPH # 2.4 10^3/uL (1.5-5.0); LYMPH % 24.9 % (24.0-44.0); MEAN CORPUSCULAR HEMOGLOBIN 24.9 pg (27.0-33.0); MONO # 0.8 10^3/uL (0.0-0.8); MONO % 8.5 % (2.0-8.0); NEUTROPHILS # 5.8 10^3/uL (1.5-8.5); NEUTROPHILS % 60.5 % (36.0-66.0); PLATELET COUNT, AUTOMATED 322 10^3/uL (150-450); RED BLOOD COUNT 4.73 10^6/uL (4.00-5.40); WHITE BLOOD COUNT 9.6 10^3/uL (4.0-10.0)
[2023-08-06 17:52] LABS: HEMOGLOBIN A1c 5.1 % (4.0-6.0)
[2023-08-06 17:54] LABS: THYROID STIMULATING HORMONE 1.733 uIU/ML (0.55-4.78)
[2023-08-06 18:23] LABS: ALBUMIN 3.7 G/DL (3.2-5.2); ALKALINE PHOSPHATASE 130 U/L (46-116); ALT/SGPT 119 U/L (7.0-40); AST/SGOT 82 U/L (<34); BILIRUBIN,TOTAL 0.6 MG/DL (0.3-1.2); BLOOD UREA NITROGEN 10 MG/DL (9-23); CALCIUM LEVEL 9.3 MG/DL (8.5-10.1); CARBON DIOXIDE LEVEL 24 MMOL/L (20-31); CHLORIDE LEVEL 108 MMOL/L (98-107); CREATININE FOR GFR 0.59 MG/DL (0.55-1.30); GLOMERULAR FILTRATION RATE > 60.0 (>60); GLUCOSE, FASTING 83 MG/DL (60-100); MAGNESIUM LEVEL 1.8 MG/DL (1.8-2.4); POTASSIUM SERUM 4.7 MMOL/L (3.5-5.1); SODIUM LEVEL 138 MMOL/L (136-145); TOTAL PROTEIN 7.3 G/DL (5.7-8.2)
== END ==
LOC: M LAB REF 16:35
PROVIDERS: ATTEND Physician Assistant
DX: G43.909 Migraine, unspecified, not intractable, without status migrainosus (principal); E66.9 Obesity, unspecified

== ENCOUNTER → 2023-09-16 | Outpatient (CLI) | payer OTHER ==
[2023-09-16 13:53] LABS: HEMOGLOBIN 12.3 g/dl (12.0-15.5); MEAN CORPUSCULAR HEMOGLOBIN 25.3 pg (27.0-33.0); MEAN CORPUSCULAR HGB CONC 32.4 g/dl (32.0-36.5); MEAN CORPUSCULAR VOLUME 78.2 fl (80.0-96.0); PLATELET COUNT, AUTOMATED 328 10^3/uL (150-450); RED BLOOD COUNT 4.86 10^6/uL (4.00-5.40)
[2023-09-16 14:28] LABS: HIV 1&2 SCREEN NEGATIVE (NEGATIVE)
[2023-09-16 14:37] LABS: HEPATITIS C VIRUS ABY INDEX 0.07 INDEX (<0.8)
[2023-09-16 15:29] LABS: GC DNA AMPLIFICATION NEGATIVE (NEGATIVE)
== END ==
LOC: M PLALAB 10:52
PROVIDERS: ATTEND Specialist
DX: Z34.81 Encounter for supervision of other normal pregnancy, first trimester (principal)

== ENCOUNTER 2023-09-24 04:25 | Emergency (ER) | payer OTHER ==
[~2023-09-24] VITALS: Ht 165.1 cm; Wt 83.6 kg
[2023-09-24 05:08] LABS: BASO % 0.3 % (0.0-1.0); EOS # 0.1 10^3/uL (0.0-0.5); HEMATOCRIT 37.3 % (36.0-47.0); HEMOGLOBIN 12.3 g/dl (12.0-15.5); LYMPH % 17.4 % (24.0-44.0); MEAN CORPUSCULAR HEMOGLOBIN 25.5 pg (27.0-33.0); MEAN CORPUSCULAR VOLUME 77.4 fl (80.0-96.0); MONO # 0.7 10^3/uL (0.0-0.8); MONO % 5.7 % (2.0-8.0); NEUTROPHILS # 8.8 10^3/uL (1.5-8.5); NEUTROPHILS % 75.3 % (36.0-66.0); PLATELET COUNT, AUTOMATED 294 10^3/uL (150-450); RED BLOOD COUNT 4.82 10^6/uL (4.00-5.40); WHITE BLOOD COUNT 11.7 10^3/uL (4.0-10.0)
[2023-09-24 06:02] LABS: BLOOD UREA NITROGEN < 5 MG/DL (9-23); CARBON DIOXIDE LEVEL 21 MMOL/L (20-31); CHLORIDE LEVEL 103 MMOL/L (98-107); CREATININE FOR GFR 0.45 MG/DL (0.55-1.30); GLOMERULAR FILTRATION RATE > 60.0 (>60); GLUCOSE, FASTING 103 MG/DL (60-100); POTASSIUM SERUM 3.6 MMOL/L (3.5-5.1); SODIUM LEVEL 133 MMOL/L (136-145)
[2023-09-24 10:12] VITALS: BP 130/65; TEMP 98.2; O2SAT 100
[2023-09-28] MEDS ORDERED: CEFD300C PO (07:39)
== END 2023-09-24 10:13 | disposition home or self-care (01) ==
LOC: M ED 04:25
DX: O20.0 Threatened abortion (principal); Z3A.11 11 weeks gestation of pregnancy; Z91.018 Allergy to other foods; Z91.010 Allergy to peanuts; Z79.899 Other long term (current) drug therapy

== ENCOUNTER 2023-10-02 21:19 | Emergency (ER) | payer OTHER ==
[~2023-10-02] VITALS: Ht 165.1 cm; Wt 83.6 kg
[~2023-10-02 21:19] MED LIST changes: +CEFD300C PO
[2023-10-02 22:36] LABS: BASO # 0.1 10^3/uL (0.0-0.2); BASO % 0.5 % (0.0-1.0); EOS # 0.4 10^3/uL (0.0-0.5); EOS % 3.4 % (0.0-3.0); HEMATOCRIT 37.7 % (36.0-47.0); HEMOGLOBIN 12.6 g/dl (12.0-15.5); LYMPH # 3.3 10^3/uL (1.5-5.0); LYMPH % 30.4 % (24.0-44.0); MEAN CORPUSCULAR HEMOGLOBIN 25.8 pg (27.0-33.0); MEAN CORPUSCULAR HGB CONC 33.4 g/dl (32.0-36.5); MEAN CORPUSCULAR VOLUME 77.1 fl (80.0-96.0); MONO # 0.7 10^3/uL (0.0-0.8); NEUTROPHILS # 6.5 10^3/uL (1.5-8.5); NEUTROPHILS % 59.4 % (36.0-66.0); PLATELET COUNT, AUTOMATED 281 10^3/uL (150-450); RED BLOOD COUNT 4.89 10^6/uL (4.00-5.40); WHITE BLOOD COUNT 10.9 10^3/uL (4.0-10.0)
[2023-10-02 23:00] LABS: ETHYL ALCOHOL (ETHANOL) < 0.003 % (0.000-0.010)
[2023-10-02 23:02] LABS: BLOOD UREA NITROGEN 7 MG/DL (9-23); CALCIUM LEVEL 9.2 MG/DL (8.5-10.1); CARBON DIOXIDE LEVEL 24 MMOL/L (20-31); CHLORIDE LEVEL 105 MMOL/L (98-107); CREATININE FOR GFR 0.38 MG/DL (0.55-1.30); GLOMERULAR FILTRATION RATE > 60.0 (>60); GLUCOSE, FASTING 103 MG/DL (60-100); POTASSIUM SERUM 3.7 MMOL/L (3.5-5.1); SODIUM LEVEL 135 MMOL/L (136-145)
[2023-10-02] MEDS: NS 1,000 ML IV ONE (23:45)
[2023-10-03 01:14] LABS: BARBITURATES URINE NEGATIVE (NEGATIVE)
[2023-10-03 01:15] LABS: AMPHETAMINES LEVEL URINE NEGATIVE (NEGATIVE); BENZODIAZEPINES URINE NEGATIVE (NEGATIVE); CANNABINOIDS URINE NEGATIVE (NEGATIVE); COCAINE METABOLITE URINE NEGATIVE (NEGATIVE); METHADONE URINE NEGATIVE (NEGATIVE); OPIATES URINE NEGATIVE (NEGATIVE); PHENCYCLIDINE URINE NEGATIVE (NEGATIVE)
[2023-10-03] MEDS ORDERED: NITROFURANTOIN (MACROBID) 100 MG CAP PO ONE (01:25)
[2023-10-03] MEDS ORDERED: NITR-67 PO (01:27)
[2023-10-03 01:30] VITALS: BP 98/55; TEMP 97.3; O2SAT 99
== END 2023-10-03 02:00 | disposition home or self-care (01) ==
LOC: EDBD 21:19 → M ED 21:19
DX: O26.891 Other specified pregnancy related conditions, first trimester (principal); S80.11XA Contusion of right lower leg, initial encounter; O23.41 Unspecified infection of urinary tract in pregnancy, first trimester; W10.8XXA Fall (on) (from) other stairs and steps, initial encounter; F12.10 Cannabis abuse, uncomplicated; Z91.018 Allergy to other foods; Z3A.12 12 weeks gestation of pregnancy; Z79.2 Long term (current) use of antibiotics; Z79.899 Other long term (current) drug therapy; Y92.9 Unspecified place or not applicable; Y93.9 Activity, unspecified; Y99.9 Unspecified external cause status

== ENCOUNTER → 2023-10-28 | Outpatient (REF) | payer OTHER ==
[~2023-10-28] MED LIST changes: +NITR-67 PO
== END ==
LOC: M PLALAB 08:45
PROVIDERS: ATTEND Advanced Practice Midwife
DX: Z34.92 Encounter for supervision of normal pregnancy, unspecified, second trimester (principal)

== ENCOUNTER 2023-10-29 17:15 | Emergency (ER) | payer OTHER ==
[~2023-10-29] VITALS: Ht 165.1 cm; Wt 79.8 kg
[2023-10-29 17:56] LABS: HEMATOCRIT 33.2 % (36.0-47.0); HEMOGLOBIN 10.9 g/dl (12.0-15.5); MEAN CORPUSCULAR HGB CONC 32.8 g/dl (32.0-36.5); MEAN CORPUSCULAR VOLUME 79.2 fl (80.0-96.0); PLATELET COUNT, AUTOMATED 250 10^3/uL (150-450); RED BLOOD COUNT 4.19 10^6/uL (4.00-5.40); WHITE BLOOD COUNT 11.4 10^3/uL (4.0-10.0)
[2023-10-29 19:22] VITALS: BP 118/61; TEMP 98.2; O2SAT 100
== END 2023-10-29 19:19 | disposition home or self-care (01) ==
LOC: M ED 17:15 → EDBD 17:15 → M ED 19:19
DX: O20.0 Threatened abortion (principal); G40.89 Other seizures; Z87.891 Personal history of nicotine dependence; Z91.010 Allergy to peanuts; Z91.018 Allergy to other foods; Z79.899 Other long term (current) drug therapy

== ENCOUNTER 2023-11-10 02:22 | Emergency (ER) | payer OTHER ==
[~2023-11-10] VITALS: Ht 165.1 cm; Wt 90.0 kg
[2023-11-10 02:59] LABS: IONIZED CALCIUM 4.9 MG/DL (4.5-5.3)
[2023-11-10 03:03] LABS: BASO # 0.1 10^3/uL (0.0-0.2); BASO % 0.5 % (0.0-1.0); EOS # 0.2 10^3/uL (0.0-0.5); EOS % 1.3 % (0.0-3.0); HEMATOCRIT 31.5 % (36.0-47.0); HEMOGLOBIN 10.8 g/dl (12.0-15.5); LYMPH # 2.9 10^3/uL (1.5-5.0); LYMPH % 22.4 % (24.0-44.0); MEAN CORPUSCULAR HEMOGLOBIN 26.6 pg (27.0-33.0); MEAN CORPUSCULAR HGB CONC 34.3 g/dl (32.0-36.5); MEAN CORPUSCULAR VOLUME 77.6 fl (80.0-96.0); MONO # 0.9 10^3/uL (0.0-0.8); MONO % 6.6 % (2.0-8.0); NEUTROPHILS # 8.9 10^3/uL (1.5-8.5); NEUTROPHILS % 68.7 % (36.0-66.0); PLATELET COUNT, AUTOMATED 273 10^3/uL (150-450); RED BLOOD COUNT 4.06 10^6/uL (4.00-5.40)
[2023-11-10 03:28] LABS: ALKALINE PHOSPHATASE 110 U/L (46-116); ALT/SGPT 24 U/L (7.0-40); AST/SGOT 20 U/L (<34); BILIRUBIN,DIRECT < 0.1 MG/DL (<0.4); BILIRUBIN,TOTAL 0.3 MG/DL (0.3-1.2); BLOOD UREA NITROGEN 7 MG/DL (9-23); CALCIUM LEVEL 9.5 MG/DL (8.5-10.1); CARBON DIOXIDE LEVEL 21 MMOL/L (20-31); CHLORIDE LEVEL 107 MMOL/L (98-107); CREATININE FOR GFR 0.52 MG/DL (0.55-1.30); GLOMERULAR FILTRATION RATE > 60.0 (>60); GLUCOSE, FASTING 97 MG/DL (60-100); MAGNESIUM LEVEL 1.6 MG/DL (1.8-2.4); POTASSIUM SERUM 3.2 MMOL/L (3.5-5.1); SODIUM LEVEL 138 MMOL/L (136-145); TOTAL PROTEIN 6.4 G/DL (5.7-8.2)
[2023-11-10 03:33] LABS: HCG, SERUM QUALITATIVE POSITIVE (NEGATIVE)
[2023-11-10 05:26] LABS: HCG, SERUM QUANTITATIVE 33932.6 MIU/ML (<4.2)
[2023-11-10] MEDS: POTASSIUM CHLORIDE 10% LIQ 20MEQ/15ML UDC PO ONE (06:25)
[2023-11-10] MEDS: MAG SULF 1GM/100ML (MAG RUN) 1 GM in IV 1 EA IV ONE (06:25)
[2023-11-10] MEDS: NS 1,000 ML IV ONE (06:25)
[2023-11-10 07:06] LABS: PROLACTIN 108.59 NG/ML
[2023-11-10 07:31] VITALS: BP 92/53; TEMP 96.9; O2SAT 98
[2023-11-10] MEDS: ACETAMINOPHEN TAB 650MG DOSE (2X325MG) PO ONE (07:34)
== END 2023-11-10 07:40 | disposition home or self-care (01) ==
LOC: M ED 02:22 → EDBD 02:22 → M ED 07:40
DX: G40.89 Other seizures (principal); F41.9 Anxiety disorder, unspecified; Z91.010 Allergy to peanuts; Z91.018 Allergy to other foods; Z79.899 Other long term (current) drug therapy
CPT/HCPCS: 76815; 80048; 80076; 80180; 82140; 82330; 83605; 83735; 84100; 84146; 84702; 84703; 85025; 93041; 94760; 96365; 99285; J3475

== ENCOUNTER 2023-12-08 14:14 | Outpatient (CLI) | payer OTHER ==
[~2023-12-08] VITALS: Ht 165.1 cm; Wt 79.1 kg
[~2023-12-08 14:14] MED LIST changes: +ONDA-282; +ONDA-282 PO; -ONDA4TAB6; -ONDA4TAB6 PO
[2023-12-08] MEDS ORDERED: PRENTAB9 PO (14:26)
[2023-12-08] MEDS ORDERED: HOME MED LIST COMPLETE! XX SCH (14:30)
[2023-12-08 14:33] VITALS: BP 124/76
[2023-12-08 15:46] LABS: APPEARANCE, URINE CLOUDY (CLEAR); BACTERIA, URINE AUTO 1+ (NEGATIVE); BILIRUBIN, URINE AUTO NEGATIVE (NEGATIVE); BLOOD, URINE BLOOD 1+ (NEGATIVE); COLOR, URINE YELLOW (YELLOW); GLUCOSE, URINE (UA) AUTO NEGATIVE (NEGATIVE); KETONE, URINE AUTO NEGATIVE (NEGATIVE); LEUKOCYTE ESTERASE, URINE AUTO 3+ (NEGATIVE); MUCUS, URINE SMALL (NEGATIVE); NITRITE, URINE AUTO NEGATIVE (NEGATIVE); PROTEIN, URINE AUTO 1+ mg/dL (NEGATIVE); RBC, URINE AUTO 109 /HPF (0-3); SPECIFIC GRAVITY URINE AUTO 1.018 (1.002-1.035); SQUAMOUS EPITHELIAL CELL UR AU 10 /HPF (0-6); UROBILINOGEN, URINE AUTO 0.2 mg/dL (0.0-2.0); WBC, URINE AUTO 125 /HPF (0-3)
[2023-12-08] MEDS ORDERED: CEPH500C PO (15:51)
[2023-12-08] MEDS ORDERED: ACET-683 PO (15:55)
== END 2023-12-08 16:12 | disposition home or self-care (01) ==
LOC: M LDO 14:14
PROVIDERS: ATTEND Advanced Practice Midwife
DX: O26.892 Other specified pregnancy related conditions, second trimester (principal); O44.02 Complete placenta previa NOS or without hemorrhage, second trimester; O26.22 Pregnancy care for patient with recurrent pregnancy loss, second trimester; O99.352 Diseases of the nervous system complicating pregnancy, second trimester; O99.332 Smoking (tobacco) complicating pregnancy, second trimester; O9A.212 Injury, poisoning and certain other consequences of external causes complicating pregnancy, second trimester; R25.2 Cramp and spasm; S70.362A Insect bite (nonvenomous), left thigh, initial encounter; G40.909 Epilepsy, unspecified, not intractable, without status epilepticus; F17.290 Nicotine dependence, other tobacco product, uncomplicated; Z3A.22 22 weeks gestation of pregnancy; Y92.9 Unspecified place or not applicable; Y93.9 Activity, unspecified
CPT/HCPCS: 81001; G0463

== ENCOUNTER 2023-12-30 19:39 | Outpatient (CLI) | payer OTHER ==
[~2023-12-30] VITALS: Ht 165.1 cm; Wt 79.7 kg
[~2023-12-30 19:39] MED LIST changes: +ACET-683 PO; +PRENTAB9 PO
[2023-12-30 19:45] VITALS: BP 105/60
[2023-12-30] MEDS ORDERED: METR-265 PO (20:40)
== END 2023-12-30 20:35 | disposition home or self-care (01) ==
LOC: M LDO 19:39
PROVIDERS: ATTEND Specialist
DX: O98.32 Other infections with a predominantly sexual mode of transmission complicating childbirth (principal); O99.332 Smoking (tobacco) complicating pregnancy, second trimester; O99.352 Diseases of the nervous system complicating pregnancy, second trimester; A59.01 Trichomonal vulvovaginitis; G40.909 Epilepsy, unspecified, not intractable, without status epilepticus; F17.290 Nicotine dependence, other tobacco product, uncomplicated; Z3A.25 25 weeks gestation of pregnancy
CPT/HCPCS: 59025; G0463

== ENCOUNTER → 2023-12-31 | Outpatient (CLI) | payer OTHER | LOC: M RAD 11:45 | PROVIDERS: ATTEND Advanced Practice Midwife | DX: Z34.92 Encounter for supervision of normal pregnancy, unspecified, second trimester (principal) ==

== ENCOUNTER 2024-02-22 22:04 | Outpatient (CLI) | payer OTHER ==
[~2024-02-22] VITALS: Ht 165.1 cm; Wt 81.3 kg
[2024-02-22 22:24] VITALS: BP 122/66
[2024-02-22 23:53] LABS: Trichomonas vaginalis (AMP) POSITIVE (NEGATIVE)
[2024-02-23 00:29] LABS: GC DNA AMPLIFICATION NEGATIVE (NEGATIVE)
== END 2024-02-23 00:30 | disposition home or self-care (01) ==
LOC: M LDO 22:04
PROVIDERS: ATTEND Obstetrics & Gynecology
DX: O98.33 Other infections with a predominantly sexual mode of transmission complicating the puerperium (principal); O99.353 Diseases of the nervous system complicating pregnancy, third trimester; O99.333 Smoking (tobacco) complicating pregnancy, third trimester; O44.43 Low lying placenta NOS or without hemorrhage, third trimester; A59.01 Trichomonal vulvovaginitis; G40.909 Epilepsy, unspecified, not intractable, without status epilepticus; F17.290 Nicotine dependence, other tobacco product, uncomplicated; Z3A.32 32 weeks gestation of pregnancy
CPT/HCPCS: 59025; 76816; 76820; 87081; 87661; 87810; 87850; G0463

== ENCOUNTER 2024-03-17 23:04 | Outpatient (CLI) | payer OTHER ==
[~2024-03-17] VITALS: Ht 165.1 cm; Wt 131.5 kg
[2024-03-17 23:13] VITALS: BP 115/69
[2024-03-17] MEDS ORDERED: HYDR-3363 PO (23:20)
[2024-03-17] MEDS ORDERED: HOME MED LIST COMPLETE! XX SCH (23:20)
[2024-03-18] MEDS: CETIRIZINE (ZyrTEC) 10 MG TAB PO ONE (00:28)
== END 2024-03-18 00:30 | disposition home or self-care (01) ==
LOC: M LDO 23:04
PROVIDERS: ATTEND Advanced Practice Midwife
DX: O36.8130 Decreased fetal movements, third trimester, not applicable or unspecified (principal); O44.03 Complete placenta previa NOS or without hemorrhage, third trimester; O99.353 Diseases of the nervous system complicating pregnancy, third trimester; O99.333 Smoking (tobacco) complicating pregnancy, third trimester; O26.23 Pregnancy care for patient with recurrent pregnancy loss, third trimester; O26.86 Pruritic urticarial papules and plaques of pregnancy (PUPPP); O98.313 Other infections with a predominantly sexual mode of transmission complicating pregnancy, third trimester; G40.909 Epilepsy, unspecified, not intractable, without status epilepticus; F17.290 Nicotine dependence, other tobacco product, uncomplicated; A59.9 Trichomoniasis, unspecified; Z3A.36 36 weeks gestation of pregnancy
CPT/HCPCS: 59025; G0463

== ENCOUNTER → 2024-03-23 | Outpatient (CLI) | payer OTHER ==
[~2024-03-23] MED LIST changes: +HYDR-3363 PO
== END ==
LOC: M WHC 12:14
PROVIDERS: ATTEND Advanced Practice Midwife
DX: O44.43 Low lying placenta NOS or without hemorrhage, third trimester (principal)

== ENCOUNTER 2024-04-07 10:54 | Inpatient (IN) | payer OTHER ==
[~2024-04-07] VITALS: Ht 165.1 cm; Wt 95.8 kg
[2024-04-07] VITALS (18 sets, daily range): BP systolic 85–143; BP diastolic 50–92
[2024-04-07] MEDS ORDERED: OXYTOCIN INJ 10UNITS/ML 1ML VIAL IM PRN (12:05)
[2024-04-07] MEDS ORDERED: LIDOCAINE 1% MDV 20ML VIAL INFIL PRN (12:05)
[2024-04-07] MEDS ORDERED: CARBOPROST TROMETHAMINE 250 MCG/ML AMP IM PRN (12:05)
[2024-04-07] MEDS ORDERED: TRANEXAMIC ACID INJection 1,000 MG in NS 100 ML IV PRN (12:05)
[2024-04-07] MEDS ORDERED: OXYTOCIN DRIP 30 UNITS in IV 1 EA IV PRN (12:05)
[2024-04-07] MEDS: miSOPROStol 50MCG 1/2 TABLET PO ONE (12:58)
[2024-04-07 13:08] LABS: HEMATOCRIT 29.4 % (36.0-47.0); HEMOGLOBIN 8.7 g/dl (12.0-15.5); MEAN CORPUSCULAR HEMOGLOBIN 20.8 pg (27.0-33.0); MEAN CORPUSCULAR HGB CONC 29.6 g/dl (32.0-36.5); MEAN CORPUSCULAR VOLUME 70.2 fl (80.0-96.0); PLATELET COUNT, AUTOMATED 308 10^3/uL (150-450); RED BLOOD COUNT 4.19 10^6/uL (4.00-5.40); WHITE BLOOD COUNT 13.6 10^3/uL (4.0-10.0)
[2024-04-07 14:02] LABS: HEPATITIS C VIRUS ABY INDEX 0.03 INDEX (<0.8)
[2024-04-07] MEDS ORDERED: HOME MED LIST COMPLETE! XX SCH (14:25)
[2024-04-07] MEDS: OXYTOCIN DRIP 30 UNITS in IV 1 EA IV SCH (17:20)
[2024-04-07] MEDS: LR 1,000 ML IV SCH (17:20)
[2024-04-07] MEDS: levETIRAcetam 250MG TABLET (KEPPRA) PO SCH (21:16)
[2024-04-08] VITALS (23 sets, daily range): BP systolic 98–134; BP diastolic 55–80; O2SAT 98–99
[2024-04-08] MEDS ORDERED: ePHEDrine SULFATE 25 MG/5 ML(5MG/ML) SYRINGE IVP PRN (02:00)
[2024-04-08] MEDS ORDERED: diphenhydrAMINE 50MG/ML VIAL IV PRN (02:00)
[2024-04-08] MEDS ORDERED: NALOXONE INJ 0.4MG/1ML VIAL IV PRN (02:00)
[2024-04-08] MEDS ORDERED: LR 500 ML IV PRN (02:00)
[2024-04-08] MEDS ORDERED: ONDANSETRON 4MG 2ML VIAL IV PRN (02:00)
[2024-04-08] MEDS ORDERED: EPIDURAL/PCA KEYS XX PRN (02:00)
[2024-04-08] MEDS: FENTANYL/ROPIVACAINE/NACL BAG 100 ML EPIDURAL SCH (03:21)
[2024-04-08] MEDS: METHYLERGONOVINE MALEATE 0.2MG/ML 1ML VIAL IM PRN (05:14)
[2024-04-08] MEDS: OXYTOCIN DRIP 30 UNITS in IV 1 EA IV PRN (05:14)
[2024-04-08] MEDS ORDERED: RHO(D) IMMUNE GLOBULIN/MALTOSE 500MCG(2500IU)/2.2ML VIAL (WINRHO) IM SCH (05:45)
[2024-04-08] MEDS ORDERED: DOCUSATE SODIUM 100MG CAPSULE PO PRN (05:45)
[2024-04-08] MEDS ORDERED: ACETAMINOPHEN 500 MG TAB PO PRN (05:45)
[2024-04-08] MEDS ORDERED: ACETAMINOPHEN 325 MG TAB PO PRN (05:45)
[2024-04-08] MEDS ORDERED: IBUPROFEN 600MG TAB PO PRN (05:45)
[2024-04-08] MEDS ORDERED: METHYLERGONOVINE MALEATE 0.2 MG TAB PO PRN (05:45)
[2024-04-08] MEDS ORDERED: DIBUCAINE 1% OINTMENT 30GM TOP PRN (05:45)
[2024-04-08] MEDS: PRENATAL VITAMINS CHEWABLE TABLET PO SCH (09:35)
[2024-04-09] MEDS: IBUPROFEN 800 MG TAB PO PRN (05:07)
[2024-04-09 06:00] VITALS: BP 103/59; O2SAT 99
[2024-04-09] MEDS: MEASLES,MUMPS,RUBELLA VACCINE INJ (MMR-II) SC.IMMUN ONE (12:57)
== END 2024-04-09 13:11 | disposition home or self-care (01) | DRG 560 ==
LOC: M LDI 10:54 → M OBS 04-08 08:23
PROVIDERS: ADMIT Advanced Practice Midwife; ATTEND Advanced Practice Midwife
PROC: 3E0P7GC Introduction of Other Therapeutic Substance into Female Reproductive, Via Natural or Artificial Opening (ICD-10-PCS; 2024-04-07)
PROC: 10E0XZZ Delivery of Products of Conception, External Approach (ICD-10-PCS; principal; 2024-04-08)
PROC: 0HQ9XZZ Repair Perineum Skin, External Approach (ICD-10-PCS; 2024-04-08)
DX: O99.334 Smoking (tobacco) complicating childbirth (principal); F17.290 Nicotine dependence, other tobacco product, uncomplicated; O69.81X0 Labor and delivery complicated by cord around neck, without compression, not applicable or unspecified; O70.0 First degree perineal laceration during delivery; Z3A.39 39 weeks gestation of pregnancy; Z37.0 Single live birth

== ENCOUNTER 2024-08-29 12:15 | Emergency (ER) | payer MEDICAID, OTHER ==
[~2024-08-29] VITALS: Ht 165.1 cm; Wt 92.7 kg
[2024-08-29 12:21] VITALS: TEMP 97.4
[2024-08-29 15:06] VITALS: BP 121/63; O2SAT 100
[2024-08-29] MEDS ORDERED: BENZ200C70 PO (15:18)
== END 2024-08-29 15:24 | disposition home or self-care (01) ==
LOC: EDBD 12:15 → M ED 12:15
DX: U07.1 COVID-19 (principal); G40.909 Epilepsy, unspecified, not intractable, without status epilepticus; F17.290 Nicotine dependence, other tobacco product, uncomplicated; F12.10 Cannabis abuse, uncomplicated; Z91.010 Allergy to peanuts; Z91.018 Allergy to other foods; Z79.899 Other long term (current) drug therapy; Z79.810 Long term (current) use of selective estrogen receptor modulators (SERMs)

== ENCOUNTER → 2024-11-05 | Outpatient (CLI) | payer OTHER ==
[~2024-11-05] MED LIST changes: +BENZ200C70 PO
== END ==
LOC: M LAB 15:08
PROVIDERS: ATTEND Advanced Practice Midwife
DX: N93.9 Abnormal uterine and vaginal bleeding, unspecified (principal)

== ENCOUNTER → 2025-04-29 | Outpatient (CLI) | payer OTHER ==
[~2025-04-29] MED LIST changes: +ACYC-438 PO; -ACYC1TAB PO; -IBUP-1022 PO; +IBUP600T42 PO
[2025-04-29 15:48] LABS: PLATELET COUNT, AUTOMATED 337 10^3/uL (150-450)
== END ==
LOC: M PLALAB 12:36
PROVIDERS: ATTEND Physician Assistant
DX: N93.9 Abnormal uterine and vaginal bleeding, unspecified (principal)